=== PATIENT | female | born 1945 | race Caucasian/White ===

== ENCOUNTER 2016-06-09 10:30 | Outpatient (CLI) | payer MEDICARE | END 2016-06-09 10:31 | disposition home or self-care (01) | DX: N63 Unspecified lump in breast (principal); Z85.3 Personal history of malignant neoplasm of breast; Z90.11 Acquired absence of right breast and nipple ==

== ENCOUNTER 2016-06-16 14:31 | Outpatient (CLI) | payer MEDICARE | END 2016-06-16 14:32 | disposition home or self-care (01) | DX: I42.6 Alcoholic cardiomyopathy (principal); Z79.01 Long term (current) use of anticoagulants ==

== ENCOUNTER 2016-06-22 09:26 | Outpatient (CLI) | payer MEDICARE ==
[2016-06-22] MEDS ORDERED: BUFFERED LIDOCAINE 10 ML SYRINGE IU ONE (12:48)
[2016-06-22] MEDS ORDERED: BUPIVACAINE 0.5%-EPI 1:200000 PF 30 ML VIAL SUBQ ONE (12:48)
== END 2016-06-22 09:27 | disposition home or self-care (01) ==
DX: C50.212 Malignant neoplasm of upper-inner quadrant of left female breast (principal); Z17.0 Estrogen receptor positive status [ER+]
CPT/HCPCS: 19083; G0206

== ENCOUNTER 2016-06-24 14:30 | Outpatient (CLI) | payer MEDICARE ==
[~2016-06-24 14:30] MED LIST: BUFFERED LIDOCAINE 10 ML SYRINGE IU ONE; BUPIVACAINE 0.5%-EPI 1:200000 PF 30 ML VIAL SUBQ ONE
== END 2016-06-24 14:31 | disposition home or self-care (01) ==
DX: I42.6 Alcoholic cardiomyopathy (principal); Z79.01 Long term (current) use of anticoagulants; E83.42 Hypomagnesemia

== ENCOUNTER 2016-07-13 10:50 | Outpatient (CLI) | payer MEDICARE | END 2016-07-13 10:51 | disposition home or self-care (01) | DX: I42.6 Alcoholic cardiomyopathy (principal); Z79.01 Long term (current) use of anticoagulants; C50.412 Malignant neoplasm of upper-outer quadrant of left female breast ==

== ENCOUNTER 2016-08-15 14:13 | Outpatient (CLI) | payer MEDICARE | END 2016-08-15 14:14 | disposition home or self-care (01) | DX: Z79.01 Long term (current) use of anticoagulants (principal); I42.6 Alcoholic cardiomyopathy ==

== ENCOUNTER 2016-08-29 10:22 | Outpatient (CLI) | payer MEDICARE | END 2016-08-29 10:23 | disposition home or self-care (01) | DX: I42.6 Alcoholic cardiomyopathy (principal); Z79.01 Long term (current) use of anticoagulants ==

== ENCOUNTER 2016-08-31 14:56 | Outpatient (CLI) | payer MEDICARE | END 2016-08-31 14:57 | disposition home or self-care (01) | DX: G47.33 Obstructive sleep apnea (adult) (pediatric) (principal); I89.0 Lymphedema, not elsewhere classified | CPT/HCPCS: 99214; G0463 ==

== ENCOUNTER 2016-09-26 09:49 | Outpatient (CLI) | payer MEDICARE | END 2016-09-26 09:50 | disposition home or self-care (01) | DX: I42.6 Alcoholic cardiomyopathy (principal); Z79.01 Long term (current) use of anticoagulants ==

== ENCOUNTER 2016-10-17 13:26 | Outpatient (CLI) | payer MEDICARE | END 2016-10-17 13:27 | disposition home or self-care (01) | LOC: LAB.S 13:26 | PROVIDERS: ATTEND Internal Medicine | DX: I42.6 Alcoholic cardiomyopathy (principal); Z79.01 Long term (current) use of anticoagulants | CPT/HCPCS: 85610 ==

== ENCOUNTER 2016-10-24 10:48 | Outpatient (CLI) | payer MEDICARE ==
--- NOTE | 2016-10-24 18:38 | XRAY Report ---
LUMBAR SPINE, THREE VIEWS: 10/24/2016 COMPARISON: 11/25/2013 FINDINGS: T12 shows a left rudimentary rib. There are five non-rib bearing lumbar-type vertebrae noted once again. Extremely prominent spurring is noted with bridging osteophytes on the AP projection at the L1-2 level. Prominent osteophytes are also noted at the L2-3 level, especially on AP projection. Significant disk space narrowing is noted at L1-2. Moderate degree of disk space narrowing is noted at L2-3. Grade 1 spondylolisthesis is noted at L4-5. This spondylolisthesis amounts to 1 cm. Spondylolisthesis most likely is a result of significant osteoarthritis at the facet joints at L4-5. No significant disk space narrowing is noted at this level. Mild spondylolisthesis is noted at L5-S1. This spondylolisthesis measures 5 mm. It most likely is a result of osteoarthritis of the facet joints. Mild old compression fracture of L5 is seen with 20% loss of height of the vertebra. This compression fracture is unchanged as compared to preceding exam. Mild posterior disk space narrowing is noted at L5-S1. As compared to preceding exam, only interval change is a mild spondylolisthesis at L5-S1 and complete healing of the previously noted compression fracture. No further loss in height of the L5 vertebral body is seen as a result of the compression fracture. Vacuum phenomenon noted at L2-3, L3-4, and L4-5 on preceding examination within these disk spaces are not as evident on today's exam. Mild old compression fracture is noted at T11 and is unchanged Vascular calcification is once again noted in the abdominal aorta and its iliac branches. IMPRESSION: 1. COMPLETE HEALING OF PREVIOUSLY NOTED L5 COMPRESSION FRACTURE. 20% LOSS IN HEIGHT OF THE L5 VERTEBRAL BODY IS ONCE AGAIN NOTED A RESULT OF THIS COMPRESSION FRACTURE WITH NO FURTHER LOSS IN HEIGHT SEEN. 2. INTERVAL APPEARANCE OF A MILD GRADE 1 SPONDYLOLISTHESIS AT L5-S1 MOST LIKELY A RESULT OF SIGNIFICANT OSTEOARTHRITIS OF THE FACET JOINTS. 3. GRADE 1 SPONDYLOLISTHESIS IS ONCE AGAIN SEEN AT L4-5 A RESULT OF OSTEOARTHRITIS OF THE FACET JOINTS AND IS UNCHANGED. 4. OSTEOARTHRITIS AND DEGENERATIVE DISK DISEASE IS NOTED IN THE LUMBAR SPINE ESPECIALLY AT THE L1-2 AND L2-3 LEVELS. 5. MILD OLD COMPRESSION FRACTURE IS ONCE AGAIN SEEN AT T11 AND IS UNCHANGED. 6. CONSTIPATION. JOB #: [id number] EXT JOB #: [id number] BLANCA
== END 2016-10-24 10:49 | disposition home or self-care (01) ==
LOC: DI.S 10:48
PROVIDERS: ATTEND Internal Medicine
DX: M51.36 Other intervertebral disc degeneration, lumbar region (principal); M47.896 Other spondylosis, lumbar region; M43.16 Spondylolisthesis, lumbar region; K59.00 Constipation, unspecified
CPT/HCPCS: 72100

== ENCOUNTER 2016-10-28 14:30 | Outpatient (CLI) | payer MEDICARE ==
--- NOTE | 2016-10-30 02:32 | XRAY Report ---
EXAM: LEFT FOOT RADIOGRAPHY EXAM DATE: 10/28/2016 02:53 PM. CLINICAL HISTORY: PAIN IN LEFT FOOT. COMPARISON: None. TECHNIQUE: 3 views. FINDINGS: Bones: Old healed fracture deformity at the left fifth metatarsal diaphysis. Absent distal aspect of the fifth proximal phalanx. No evidence for acute fracture. No acute bone findings are seen. Joints: No dislocation. Mild to moderate tibiotalar, intertarsal and tarsometatarsal degenerative lluvia nt disease. Small posterior calcaneal bone spur. Soft Tissues: Diffuse distal lower leg and foot soft tissue fullness. Some arterial calcifications no hayden at the dorsal foot soft tissue. IMPRESSION: 1. No acute bone findings are seen. See above. [facility] Referring Provider Line: [phone] SITE ID: [id number]
== END 2016-10-28 14:31 | disposition home or self-care (01) ==
LOC: DI.S 14:30
PROVIDERS: ATTEND Internal Medicine
DX: M19.072 Primary osteoarthritis, left ankle and foot (principal); M77.32 Calcaneal spur, left foot; I70.208 Unspecified atherosclerosis of native arteries of extremities, other extremity

== ENCOUNTER 2016-11-07 11:40 | Outpatient (CLI) | payer MEDICARE | END 2016-11-07 23:59 | disposition home or self-care (01) | LOC: LAB.S 11:40 | PROVIDERS: ATTEND Internal Medicine | DX: I42.6 Alcoholic cardiomyopathy (principal); Z79.01 Long term (current) use of anticoagulants | CPT/HCPCS: 85610 ==

== ENCOUNTER 2016-11-21 09:07 | Outpatient (CLI) | payer MEDICARE | END 2016-11-21 09:08 | disposition home or self-care (01) | LOC: LAB.S 09:07 | PROVIDERS: ATTEND Internal Medicine | DX: I42.6 Alcoholic cardiomyopathy (principal); Z79.01 Long term (current) use of anticoagulants | CPT/HCPCS: 85610 ==

== ENCOUNTER 2016-11-28 21:52 | Outpatient (CLI) | payer MEDICARE | END 2016-11-28 21:53 | disposition critical access hospital (66) | LOC: EMS 21:52 | PROVIDERS: ATTEND Surgery | DX: R53.1 Weakness (principal); W18.39XA Other fall on same level, initial encounter; Y92.009 Unspecified place in unspecified non-institutional (private) residence as the place of occurrence of the external cause | CPT/HCPCS: A0425; A0429 ==

== ENCOUNTER 2016-11-28 22:54 | Emergency (ER) | payer MEDICARE ==
--- NOTE | 2016-11-29 00:01 | ED Physician Documentation ---
PD HPI UPPER EXT INJURY - Stated complaint Stated Complaint: GLF, RIGHT SHOULDER PAIN - Chief complaint Chief Complaint: General - History obtained from History obtained from: Patient - History of Present Illness Location: Right, Shoulder, Other (right hip) Type of injury: Fall Where injury occurred: Home Timing - onset: Enter time (19:30) Timing - details: Abrupt onset Improved by: Rest Worsened by: Moving, Palpating Associated symptoms: No: Weakness, Numbness, Swelling Similar symptoms before: Has not had sx before Recently seen: Not recently seen - Additonal information Additional information: tripped and fell at home tonight 7:30 PM, c/o RUE and RLE pain, predominantly right hip and right shoulder Review of Systems Musculoskeletal: reports: Joint pain, Pain with weight bearing. denies: Neck pain, Back pain Neurologic: denies: Focal weakness, Numbness, Headache, Head injury, LOC PD PAST MEDICAL HISTORY - Past Medical History Past Medical History: Yes Cardiovascular: Congestive heart failure, Hypertension, High cholesterol, Murmur Respiratory: Asthma, COPD, Pneumonia, Shortness of breath, Sleep apnea, CPAP use Neuro: None Endocrine/Autoimmune: None GI: GERD, Ulcers, Chronic diarrhea, Chronic constipation SPACE CONTROL AGENT: None, Breast cancer : None HEENT: Other Psych: Depression, Claustrophobia Musculoskeletal: Osteoarthritis, Rheumatoid arthritis, Chronic back pain Derm: Other drug resistant infections - Past Surgical History Past Surgical History: Yes General: Colonoscopy Ortho: Other /SPACE CONTROL AGENT: Hysterectomy, Mastectomy HEENT: Cataracts, Tonsil/Adenoidectomy - Present Medications Home Medications: Ambulatory Orders Medication Instructions Recorded Confirmed Venlafaxine [Effexor] 75 mg PO TID 07/10/13 11/02/16 Acetaminophen 500 mg PO TID 12/28/15 11/02/16 Fluticasone [Flonase] 2 spray MARILUZ DAILY 12/28/15 11/02/16 Furosemide [Lasix] 80 mg PO DAILY 12/28/15 11/02/16 Gabapentin 300 mg PO TID 12/28/15 11/02/16 Omeprazole [PriLOSEC] 20 mg PO DAILY PRN 12/28/15 11/02/16 diphenhydrAMINE [Benadryl] 25 mg PO HS PRN 12/28/15 11/02/16 Albuterol Sulf [Ventolin Hfa 1 - 2 puffs INH Q4HR PRN 07/27/16 11/02/16 Inhaler] Calcium Carbonate/Vitamin D3 1 each PO BID 07/27/16 11/02/16 [Caltrate 600 Plus D3 Tablet] Fluticasone/Salmeterol 100/50 1 each IH BID 07/27/16 11/02/16 [Advair 100 Mcg/50 Mcg] Hydroxychloroquine [Plaquenil] 200 mg PO DAILY 07/27/16 11/02/16 Losartan [Cozaar] 50 mg PO DAILY 07/27/16 11/02/16 Metoprolol Succinate 0.5 tab PO DAILY 07/27/16 11/02/16 Nortriptyline [Pamelor] 3 cap PO BID 07/27/16 11/02/16 Potassium Chloride 10 meq PO BID 07/27/16 11/02/16 Simvastatin 20 mg PO DAILY PM 07/27/16 11/02/16 Spironolactone 25 mg PO DAILY 07/27/16 11/02/16 Terbinafine HCl [Lamisil At] 1 applic TOP BID 07/27/16 11/02/16 Warfarin [Coumadin] 5 mg PO 1400 07/27/16 11/02/16 Anastrozole 1 mg PO DAILY PM 11/02/16 11/02/16 - Allergies Allergies/Adverse Reactions: Allergies Allergy/AdvReac Type Severity Reaction Status Date / Time penicillin G Allergy Intermediate Unknown Verified 11/28/16 23:02 Sulfa (Sulfonamide Allergy Intermediate Rash Verified 11/28/16 23:02 Antibiotics) dyazides Allergy Intermediate Unknown Uncoded 11/28/16 23:02 - Social History Does the pt smoke?: No Smoking Status: Never smoker Does the pt drink ETOH?: No Does the pt have substance abuse?: No - Immunizations Immunizations are current?: Yes - POLST Patient has POLST: No PD ED PE NORMAL - Vitals Vital signs reviewed: Yes - General General: Alert and oriented X 3, No acute distress, Well developed/nourished - Derm Derm: Normal color, Warm and dry PD ED PE EXPANDED - Extremities Extremities: Tenderness, Limited ROM, Right shoulder, Right hip, Pedal edema bilateral Results - Vitals Vitals: Vital Signs - 24 hr 11/28/16 11/28/16 11/29/16 22:57 23:33 02:05 Temperature 36.6 C Heart Rate 61 58 L 57 L Respiratory 14 19 18 Rate Blood Pressure 126/66 122/59 L O2 Saturation 99 99 96 11/29/16 11/29/16 11/29/16 02:07 02:24 03:23 Temperature Heart Rate 55 L 57 L Respiratory 17 18 Rate Blood Pressure 131/57 H 139/61 H 124/57 L O2 Saturation 97 100 Oxygen O2 Source [With Activity] Room air O2 Source [Without Activity] Room air O2 Source Room air - Rads (name of study) right hip xrays Radiology: Prelim report reviewed, See rad report right shoulder xrays Radiology: Prelim report reviewed, See rad report PD MEDICAL DECISION MAKING - ED course Complexity details: reviewed results, re-evaluated patient, considered differential, d/w patient, d/w family Departure - Departure Disposition: 01 Home, Self Care Clinical Impression: Fall, Shoulder contusion, Contusion of hip, right Condition: Good Instructions: ED Mechanical Fall, ED Contusion Hip, ED Contusion Shoulder Follow-Up: Shay Heredia MD [Primary Care Provider] - Discharge Date/Time: 11/29/16 03:47
--- NOTE | 2016-11-29 01:56 | XRAY Preliminary Report ---
Exam: XR Hip w/Pelvis 2-3V RT IMPRESSION: 1. No acute abnormality seen in the pelvis or hip. [facility] SITE ID: [id number]
--- NOTE | 2016-11-29 01:59 | XRAY Report ---
EXAM: RIGHT HIP AND PELVIS RADIOGRAPHY EXAM DATE: 11/29/2016 01:39 AM. HISTORY: Fall, pain. History of breast cancer. COMPARISONS: None. TECHNIQUE: 1 view of the pelvis and 2 view of the hip. FINDINGS: Bones: No acute fracture seen. No focal area of bone destruction identified. Joints: The bilateral hip, pubis symphysis, and sacroiliac joints are relatively well preserved for a ge. Soft Tissues: Grossly unremarkable. IMPRESSION: 1. No acute abnormality seen in the pelvis or hip. [facility] Referring Provider Line: [phone] SITE ID: [id number]
--- NOTE | 2016-11-29 02:02 | XRAY Preliminary Report ---
Exam: XR Shoulder 3 View RT IMPRESSION: 1. Osteopenia and degenerative changes. 2. No acute fracture or dislocation seen. 3. Dystrophic ossification or calcification again seen about the shoulder joint. [facility] SITE ID: [id number]
--- NOTE | 2016-11-29 02:04 | XRAY Report ---
EXAM: RIGHT SHOULDER RADIOGRAPHY EXAM DATE: 11/29/2016 01:38 AM. CLINICAL HISTORY: Fall, pain. COMPARISON: 12/30/2014. TECHNIQUE: 3 views. FINDINGS: Bones: Osteopenia. No acute fracture seen. Joints: No dislocation. Degenerative joint disease in the glenohumeral joint and acromioclavicular micha int. Soft tissues: Dystrophic calcification or ossification is seen about the shoulder joint. Right pleura l thickening is noted. IMPRESSION: 1. Osteopenia and degenerative changes. 2. No acute fracture or dislocation seen. 3. Dystrophic ossification or calcification again seen about the shoulder joint. [facility] Referring Provider Line: [phone] SITE ID: [id number]
[2016-11-29] MEDS ORDERED: HYDROcod/ACET 5/325 Prepack 6 PO STA (03:23)
[2016-11-29 03:24] VITALS: BP 124/57
[2016-11-29] MEDS ORDERED: HYDROcod/ACET 5/325 Prepack 6 PO ONE (03:35)
== END 2016-11-29 03:47 | disposition home or self-care (01) ==
LOC: EDUNIT# → SUPCPDRO 22:54 → ED 22:54
DX: S40.011A Contusion of right shoulder, initial encounter (principal); S70.01XA Contusion of right hip, initial encounter; W18.30XA Fall on same level, unspecified, initial encounter; Y92.009 Unspecified place in unspecified non-institutional (private) residence as the place of occurrence of the external cause; Z79.01 Long term (current) use of anticoagulants; M85.811 Other specified disorders of bone density and structure, right shoulder; M06.9 Rheumatoid arthritis, unspecified; M19.90 Unspecified osteoarthritis, unspecified site; I11.0 Hypertensive heart disease with heart failure; I50.9 Heart failure, unspecified; Z85.3 Personal history of malignant neoplasm of breast; Z90.10 Acquired absence of unspecified breast and nipple
CPT/HCPCS: 99283; 99284

== ENCOUNTER 2017-01-02 08:00 | Outpatient (CLI) | payer MEDICARE | END 2017-01-02 08:01 | disposition home or self-care (01) | LOC: LAB.S 08:00 | PROVIDERS: ATTEND Internal Medicine | DX: I42.6 Alcoholic cardiomyopathy (principal); Z79.01 Long term (current) use of anticoagulants | CPT/HCPCS: 85610 ==

== ENCOUNTER 2017-02-14 15:06 | Outpatient (CLI) | payer MEDICARE | END 2017-02-14 15:07 | disposition home or self-care (01) | LOC: LAB.F 15:06 | PROVIDERS: ATTEND Internal Medicine | DX: I42.6 Alcoholic cardiomyopathy (principal); Z79.01 Long term (current) use of anticoagulants | CPT/HCPCS: 85610 ==

== ENCOUNTER 2017-02-23 10:14 | Outpatient (CLI) | payer MEDICARE | END 2017-02-23 10:15 | disposition EMS.NT | LOC: EMS 10:14 | PROVIDERS: ATTEND Surgery | DX: Z03.89 Encounter for observation for other suspected diseases and conditions ruled out (principal); W07.XXXA Fall from chair, initial encounter; Y92.009 Unspecified place in unspecified non-institutional (private) residence as the place of occurrence of the external cause ==

== ENCOUNTER 2017-02-23 15:03 | Outpatient (CLI) | payer MEDICARE | END 2017-02-23 15:04 | disposition EMS.NT | LOC: EMS 15:03 | PROVIDERS: ATTEND Surgery | DX: Z03.89 Encounter for observation for other suspected diseases and conditions ruled out (principal); W01.198A Fall on same level from slipping, tripping and stumbling with subsequent striking against other object, initial encounter; Y92.002 Bathroom of unspecified non-institutional (private) residence as the place of occurrence of the external cause ==

== ENCOUNTER 2017-02-27 12:09 | Outpatient (CLI) | payer MEDICARE ==
[2017-02-28 11:46] LABS: BASOPHILS % (AUTO) 0.5 %; EOSINOPHILS # (AUTO) 0.1 10^3/uL (0.0-0.7); EOSINOPHILS % (AUTO) 1.2 %; HCT - HEMATOCRIT 37.8 % (37.0-47.0); LYMPHOCYTES # (AUTO) 1.1 10^3/uL (1.5-3.5); MEAN CORPUSCULAR HEMOGLOBIN 29.3 pg (27.0-31.0); MEAN CORPUSCULAR HGB CONC 31.8 g/dL (32.0-36.0); MEAN CORPUSCULAR VOLUME 92.1 fL (81.0-99.0); MEAN PLATELET VOLUME 8.9 fL (7.9-10.8); MONOCYTES # (AUTO) 0.7 10^3/uL (0.0-1.0); MONOCYTES % (AUTO) 11.5 %; NEUTROPHILS # (AUTO) 4.4 10^3/uL (1.5-6.6); NEUTROPHILS % (AUTO) 69.8 %; NUCLEATED RED BLOOD CELLS AUTO 0.1 /100WBC; RED CELL DISTRIBUTION WIDTH 19.3 % (12.0-15.0); WHITE BLOOD COUNT 6.3 x10^3/uL (4.8-10.8)
[2017-02-28 12:05] LABS: ALBUMIN/GLOBULIN RATIO 1.3 (1.0-2.2); BILIRUBIN,TOTAL 0.5 mg/dL (0.2-1.0); BUN - BLOOD UREA NITROGEN 15 mg/dL (6-20); CALCIUM 8.8 mg/dL (8.5-10.3); CARBON DIOXIDE - CO2 29 mmol/L (21-32); CHLORIDE 102 mmol/L (101-111); CHOL/HDL RATIO 2.1 (<4.4); CHOLESTEROL 92 mg/dL; CREATININE 0.8 mg/dL (0.4-1.0); GFR - MDRD 71 (>89); GLUCOSE 79 mg/dL (70-100); HDL CHOLESTEROL 43 mg/dL; LDL/HDL RATIO 0.8 (<4.4); SODIUM 140 mmol/L (135-145); TOTAL PROTEIN 6.2 g/dL (6.7-8.2); TRIGLYCERIDES 68 mg/dL; VLDL CHOLESTEROL 14 mg/dL
[2017-02-28 12:10] LABS: HEMOGLOBIN A1C 0.5 g/dL; PLATELET ESTIMATE, MANUAL NORMAL (130-450,000) (NORMAL); PLATELET MORPHOLOGY NORMAL APPEARANCE (NORMAL)
== END 2017-02-27 12:10 | disposition home or self-care (01) ==
LOC: LAB.F 12:09
PROVIDERS: ATTEND Internal Medicine
DX: R60.9 Edema, unspecified (principal); E78.00 Pure hypercholesterolemia, unspecified; R73.9 Hyperglycemia, unspecified; R06.00 Dyspnea, unspecified
CPT/HCPCS: 36415; 80053; 80061; 83036; 83880; 84443; 85025; 85610

== ENCOUNTER 2017-03-01 13:41 | Emergency (ER) | payer MEDICARE ==
[2017-03-01] MEDS ORDERED: cefTRIAXone 1 GM VIAL IM STA (14:41)
--- NOTE | 2017-03-01 14:44 | ED Physician Documentation ---
PD HPI SKIN - Stated complaint Stated Complaint: BILAT LEGS WOUND - Chief complaint Chief Complaint: Wound - History obtained from History obtained from: Patient - History of Present Illness Timing - onset: Other (72-year-old woman with peripheral vascular disease on warfarin presents with multiple complaints. Most pressing to her is that she has had nonhealing wounds on both lower extremities for the last 3 months that have been weeping. She recently finished a course of Keflex without improvement. There is no associated fever. She also has Yudelka in the groin folds that has been resistant to creams. She has had 2 falls with head injuries over the last week and a half with mild headaches. No loss of consciousness.) Review of Systems Ten Systems: 10 systems reviewed and negative Constitutional: reports: Reviewed and negative Nose: denies: Rhinorrhea / runny nose, Congestion Cardiac: denies: Chest pain / pressure, Palpitations Respiratory: denies: Dyspnea, Cough PD PAST MEDICAL HISTORY - Past Medical History Past Medical History: Yes Cardiovascular: Congestive heart failure, Hypertension, High cholesterol, Murmur Respiratory: Asthma, COPD, Pneumonia, Shortness of breath, Sleep apnea, CPAP use Neuro: None Endocrine/Autoimmune: None GI: GERD, Ulcers, Chronic diarrhea, Chronic constipation PLASTICS FABRICATOR: None, Breast cancer : None HEENT: Other Psych: Depression, Claustrophobia Musculoskeletal: Osteoarthritis, Rheumatoid arthritis, Chronic back pain Derm: Other drug resistant infections - Past Surgical History Past Surgical History: Yes General: Colonoscopy Ortho: Other /PLASTICS FABRICATOR: Hysterectomy, Mastectomy HEENT: Cataracts, Tonsil/Adenoidectomy - Present Medications Home Medications: Ambulatory Orders Medication Instructions Recorded Confirmed Venlafaxine [Effexor] 75 mg PO TID 07/10/13 12/21/16 Acetaminophen 500 mg PO TID 12/28/15 12/21/16 Fluticasone [Flonase] 2 spray MARILUZ DAILY 12/28/15 12/21/16 Furosemide [Lasix] 80 mg PO DAILY 12/28/15 12/21/16 Gabapentin 300 mg PO TID 12/28/15 12/21/16 Omeprazole [PriLOSEC] 20 mg PO DAILY PRN 12/28/15 12/21/16 diphenhydrAMINE [Benadryl] 25 mg PO HS PRN 12/28/15 12/21/16 Albuterol Sulf [Ventolin Hfa 1 - 2 puffs INH Q4HR PRN 07/27/16 12/21/16 Inhaler] Calcium Carbonate/Vitamin D3 1 each PO BID 07/27/16 12/21/16 [Caltrate 600 Plus D3 Tablet] Fluticasone/Salmeterol 100/50 1 each IH BID 07/27/16 12/21/16 [Advair 100 Mcg/50 Mcg] Hydroxychloroquine [Plaquenil] 200 mg PO DAILY 07/27/16 12/21/16 Losartan [Cozaar] 50 mg PO DAILY 07/27/16 12/21/16 Metoprolol Succinate 0.5 tab PO DAILY 07/27/16 12/21/16 Nortriptyline [Pamelor] 3 cap PO BID 07/27/16 12/21/16 Potassium Chloride 10 meq PO BID 07/27/16 12/21/16 Simvastatin 20 mg PO DAILY PM 07/27/16 12/21/16 Spironolactone 25 mg PO DAILY 07/27/16 12/21/16 Terbinafine HCl [Lamisil At] 1 applic TOP BID 07/27/16 12/21/16 Warfarin [Coumadin] 5 mg PO 1400 07/27/16 12/21/16 Anastrozole 1 mg PO DAILY PM 11/02/16 12/21/16 Clindamycin [Cleocin] 300 mg PO Q6H 10 Days capsule 03/01/17 Nystatin [Nystop] 1 applic TOP TID 10 Days powder 03/01/17 - Allergies Allergies/Adverse Reactions: Allergies Allergy/AdvReac Type Severity Reaction Status Date / Time penicillin G Allergy Intermediate Unknown Verified 03/01/17 13:50 Sulfa (Sulfonamide Allergy Intermediate Rash Verified 03/01/17 13:50 Antibiotics) dyazides Allergy Intermediate Unknown Uncoded 11/28/16 23:02 - Social History Does the pt smoke?: No Smoking Status: Never smoker Does the pt drink ETOH?: No Does the pt have substance abuse?: No - Immunizations Immunizations are current?: Yes - POLST Patient has POLST: Yes PD ED PE NORMAL - Vitals Vital signs reviewed: Yes - General General: Alert and oriented X 3, No acute distress - HEENT HEENT: PERRL, EOMI, Other (Bruising over both sides of the forehead) - Abdomen Abdomen: Normal bowel sounds, Soft - Back Back: No CVA TTP, No spinal TTP - Derm Derm: Other (Peripheral venous stasis changes of both legs with weeping cellulitis, especially the left leg with 1 2 x 1 cm shallow ulcer which is cultured during exam, it is on the lateral calf on the left. Intertriginous yudelka in the groin.) - Neuro Neuro: Alert and oriented X 3, Normal speech - Psych Psych: Normal mood, Normal affect Results - Vitals Vitals: Vital Signs - 24 hr 03/01/17 03/01/17 13:46 16:42 Temperature 36.2 C L 36.5 C Heart Rate 80 83 Respiratory 22 12 Rate Blood Pressure 108/65 139/60 H O2 Saturation 92 92 Oxygen O2 Source [] Room air O2 Source [] Room air O2 Source Room air - Labs Labs: Laboratory Tests 03/01/17 15:01 Whole Blood INR 1.8 H - Rads (name of study) CT Head Radiology: EMP read contemporaneously (Age-related atrophy without acute abnormality) PD MEDICAL DECISION MAKING - ED course ED course: This is a 72-year-old woman who presents with multiple complaints including a yeast infection in her groin, bilateral lower extremity cellulitis without evidence of sepsis, and multiple head injuries, although not today in the setting of anticoagulation. Her INR is 1.8 and she was advised to take an extra half dose tonight. Her head CT was negative. The wound on her left lower extremity was cultured and she is given Rocephin in the emergency department and a prescription for clindamycin noting her allergies as well as nystatin powder. They are having some troubles caring for her at home, not acutely but chronically, the geriatric social worker did see her. She was counseled that head injuries in the setting of anticoagulation mandate an emergency department visit. Departure - Departure Disposition: 01 Home, Self Care Clinical Impression: Peripheral edema, Venous stasis, Cellulitis of leg, left, Yduelka infection of flexural skin, Subtherapeutic international normalized ratio (INR) Head injury Qualifiers: Encounter type: initial encounter Qualified Code(s): S09.90XA - Unspecified injury of head, initial encounter Condition: Good Record reviewed to determine appropriate education?: Yes Instructions: Cellulitis Dc Prescriptions: Clindamycin [Cleocin] 300 mg PO Q6H 10 Days capsule Nystatin [Nystop] 1 applic TOP TID 10 Days powder Comments: Take an extra half dose of your Coumadin tonight. Oftentimes your INR will go high while on antibiotics, have it checked again on Monday and again on Monday, and late next week. Call your doctor to arrange a follow-up appointment, make the next available appointment. In the interim, return anytime if worse or if new symptoms develop. We are performing a wound culture, the results should be done in 48-72 hours. If antibiotic change is necessary we will call you. Return if worse in the meantime, especially if he develop increased pain, fevers, cannot keep down the medication. Otherwise follow-up with your physician in approximately 2-3 days. Your blood pressure was elevated today on check into the emergency department. This does not mean that you have hypertension, it is a common phenomenon to come to the emergency department and have elevated blood pressure. I recommend that she see your primary care physician within the week to have it rechecked when you are feeling better. Discharge Date/Time: 03/01/17 16:44
[2017-03-01] MEDS ORDERED: LIDOCAINE 1% 2 ML VIAL ONE (14:47)
[2017-03-01] MEDS ORDERED: cefTRIAXone 1 GM VIAL ONE (14:48)
--- NOTE | 2017-03-01 15:47 | CT Preliminary Report ---
Exam: CT Head W/O IMPRESSION: Generalized age-related cortical atrophic changes without evidence of acute intracranial abnormality. [facility] SITE ID: [id number]
--- NOTE | 2017-03-01 15:50 | CT Report ---
EXAM: CT HEAD EXAM DATE: 03/01/2017 03:25 PM. CLINICAL HISTORY: Head inj, on warfarin. COMPARISON: None. TECHNIQUE: Multiaxial CT images were obtained from the foramen magnum to the vertex. IV contrast: Non e. Reformats: Coronal. In accordance with CT protocol optimization, one or more of the following dose reduction techniques w ere utilized for this exam: automated exposure control, adjustment of mA and/or KV based on patient s ize, or use of iterative reconstructive technique. FINDINGS: Parenchyma: No intraparenchymal hemorrhage. No evidence of mass, midline shift, or CT findings of acu te infarction. Desouza-white differentiation is distinct. Extraaxial Spaces: Normal for age. No subdural or epidural collections. Ventricles: The ventricles and cortical sulci are enlarged, consistent with age-related tissue loss. Sinuses: Imaged paranasal sinuses, orbits, and mastoids show no significant abnormality. Bones: Unremarkable. Other: Diffuse chronic microangiopathic white matter changes. IMPRESSION: Generalized age-related cortical atrophic changes without evidence of acute intracranial abnormality. [facility] Referring Provider Line: [phone] SITE ID: [id number]
[2017-03-01 16:43] VITALS: BP 139/60
== END 2017-03-01 16:44 | disposition home or self-care (01) ==
LOC: ED 13:41
DX: I87.8 Other specified disorders of veins (principal); L03.115 Cellulitis of right lower limb; L03.116 Cellulitis of left lower limb; R60.0 Localized edema; B37.49 Other urogenital candidiasis; D68.8 Other specified coagulation defects; S09.90XA Unspecified injury of head, initial encounter; W19.XXXA Unspecified fall, initial encounter; I11.0 Hypertensive heart disease with heart failure; I50.9 Heart failure, unspecified; I73.9 Peripheral vascular disease, unspecified; E78.00 Pure hypercholesterolemia, unspecified; Z79.01 Long term (current) use of anticoagulants; J45.909 Unspecified asthma, uncomplicated; J44.9 Chronic obstructive pulmonary disease, unspecified; G47.30 Sleep apnea, unspecified; K21.9 Gastro-esophageal reflux disease without esophagitis; Z87.11 Personal history of peptic ulcer disease; Z85.3 Personal history of malignant neoplasm of breast; M19.90 Unspecified osteoarthritis, unspecified site; M06.9 Rheumatoid arthritis, unspecified
CPT/HCPCS: 70450; 85610; 87070; 87077; 87205; 96372; 99283; 99284

== ENCOUNTER 2017-03-03 11:22 | Outpatient (CLI) | payer MEDICARE | END 2017-03-03 11:23 | disposition home or self-care (01) | LOC: LAB.F 11:22 | PROVIDERS: ATTEND Internal Medicine | DX: R06.09 Other forms of dyspnea (principal) | CPT/HCPCS: 36415; 83880 ==

== ENCOUNTER 2017-03-09 11:17 | Outpatient (CLI) | payer MEDICARE | END 2017-03-09 11:18 | disposition home or self-care (01) | LOC: LAB.F 11:17 | PROVIDERS: ATTEND Internal Medicine | DX: I42.6 Alcoholic cardiomyopathy (principal); Z79.01 Long term (current) use of anticoagulants | CPT/HCPCS: 85610 ==

== ENCOUNTER 2017-03-21 08:00 | Outpatient (CLI) | payer MEDICARE ==
[2017-03-21 18:21] LABS: BILIRUBIN,URINE NEGATIVE (NEGATIVE)
[2017-03-21 18:31] LABS: UA w/ MICROSCOPIC CHARGE YES
[2017-03-21 18:37] LABS: UR CULTURE IF IND INDICATED; WBC,URINE >25 /HPF (0-5)
== END 2017-03-21 08:01 | disposition home or self-care (01) ==
LOC: LAB.R 08:00
PROVIDERS: ATTEND Internal Medicine
DX: I50.9 Heart failure, unspecified (principal); N39.0 Urinary tract infection, site not specified
CPT/HCPCS: 80048; 81001; 81003; 87086

== ENCOUNTER 2017-03-23 12:14 | Outpatient (CLI) | payer MEDICARE ==
[2017-03-23 18:02] LABS: CALCIUM 8.5 mg/dL (8.5-10.3); CREATININE 0.8 mg/dL (0.4-1.0); POTASSIUM 3.5 mmol/L (3.5-5.0)
== END 2017-03-23 12:15 | disposition home or self-care (01) ==
LOC: LAB.F 12:14
PROVIDERS: ATTEND Internal Medicine
DX: I50.9 Heart failure, unspecified (principal)
CPT/HCPCS: 80048; 83880

== ENCOUNTER 2017-04-18 21:34 | Outpatient (CLI) | payer MEDICARE | END 2017-04-18 21:35 | disposition EMS.NT | LOC: EMS 21:34 | PROVIDERS: ATTEND Surgery | DX: Z03.89 Encounter for observation for other suspected diseases and conditions ruled out (principal); W18.39XA Other fall on same level, initial encounter; Y92.009 Unspecified place in unspecified non-institutional (private) residence as the place of occurrence of the external cause ==

== ENCOUNTER 2017-04-20 15:00 | Outpatient (CLI) | payer MEDICARE ==
[2017-04-20 18:17] LABS: PT - PROTHROMBIN TIME 50.9 secs (9.9-12.6)
[2017-04-20 18:21] LABS: CREATININE 1.3 mg/dL (0.4-1.0); POTASSIUM 4.3 mmol/L (3.5-5.0)
[2017-04-20 18:22] LABS: CALCIUM 8.8 mg/dL (8.5-10.3)
[2017-04-20 18:37] LABS: INR 4.8 (0.8-1.2)
== END 2017-04-20 15:01 | disposition home or self-care (01) ==
LOC: LAB.R 15:00
PROVIDERS: ATTEND Family Medicine
DX: I50.9 Heart failure, unspecified (principal); Z79.01 Long term (current) use of anticoagulants
CPT/HCPCS: 80048; 85610

== ENCOUNTER 2017-04-21 14:00 | Outpatient (CLI) | payer MEDICARE | END 2017-04-21 14:01 | disposition critical access hospital (66) | LOC: EMS 14:00 | PROVIDERS: ATTEND Surgery | DX: T83.038A Leakage of other urinary catheter, initial encounter (principal) | CPT/HCPCS: A0425; A0429 ==

== ENCOUNTER 2017-04-21 14:26 | Emergency (ER) | payer MEDICARE ==
[2017-04-21 15:23] LABS: BILIRUBIN,URINE NEGATIVE (NEGATIVE)
[2017-04-21 15:24] LABS: BASOPHILS % (AUTO) 0.5 %; EOSINOPHILS % (AUTO) 0.6 %; HCT - HEMATOCRIT 36.9 % (37.0-47.0); HGB - HEMOGLOBIN 11.6 g/dL (12.0-16.0); LYMPHOCYTES # (AUTO) 0.8 10^3/uL (1.5-3.5); LYMPHOCYTES % (AUTO) 10.1 %; MEAN CORPUSCULAR HEMOGLOBIN 28.4 pg (27.0-31.0); MEAN CORPUSCULAR HGB CONC 31.6 g/dL (32.0-36.0); MEAN CORPUSCULAR VOLUME 89.9 fL (81.0-99.0); MEAN PLATELET VOLUME 7.9 fL (7.9-10.8); MONOCYTES # (AUTO) 0.7 10^3/uL (0.0-1.0); NEUTROPHILS # (AUTO) 6.4 10^3/uL (1.5-6.6); NEUTROPHILS % (AUTO) 79.8 %; NUCLEATED RED BLOOD CELLS AUTO 0.1 /100WBC; RED CELL DISTRIBUTION WIDTH 19.1 % (12.0-15.0); UA w/ MICROSCOPIC CHARGE YES
--- NOTE | 2017-04-21 15:24 | ED Physician Documentation ---
History of Present Illness - Stated complaint Stated Complaint: BLEEDING - Chief complaint Chief Complaint: General - History obtained from History obtained from: Patient, EMS - History of Present Illness Timing: Today Pain level max: 0 Pain level now: 0 Improved by: nothing Worsened by: nothing - Additonal information Additional information: Patient is a 72-year-old female with a chronic indwelling Adams catheter who was sent over from her primary care office today for bleeding, unclear from where, but they think near the Adams catheter. The catheter placed a week ago when her INR was over 5. States her INR was down to four-point something today. She had also been taken meloxicam. No fevers. No vomiting. No abdominal pain. Her primary care provider stated she was shaking in the office today but no fever. Review of Systems Ten Systems: 10 systems reviewed and negative Constitutional: denies: Fever, Chills Ears: denies: Ear pain Nose: denies: Rhinorrhea / runny nose, Congestion Throat: denies: Sore throat Cardiac: denies: Chest pain / pressure Respiratory: denies: Cough GI: denies: Abdominal Pain, Nausea, Vomiting, Diarrhea Skin: denies: Rash Musculoskeletal: denies: Neck pain, Back pain Neurologic: denies: Focal weakness, Numbness, Headache PD PAST MEDICAL HISTORY - Past Medical History Cardiovascular: Congestive heart failure, Hypertension, High cholesterol, Murmur Respiratory: Asthma, COPD, Pneumonia, Shortness of breath, Sleep apnea, CPAP use Neuro: None Endocrine/Autoimmune: None GI: GERD, Ulcers, Chronic diarrhea, Chronic constipation 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, Breast cancer : None HEENT: Other Psych: Depression, Claustrophobia Musculoskeletal: Osteoarthritis, Rheumatoid arthritis, Chronic back pain Derm: Other drug resistant infections - Past Surgical History Past Surgical History: Yes General: Colonoscopy Ortho: Other /TRAILHEAD CONSTRUCTION WORKER: Hysterectomy, Mastectomy HEENT: Cataracts, Tonsil/Adenoidectomy - Present Medications Home Medications: Ambulatory Orders Medication Instructions Recorded Confirmed Venlafaxine [Effexor] 75 mg PO TID 07/10/13 04/19/17 Acetaminophen 500 mg PO TID 12/28/15 04/19/17 Fluticasone [Flonase] 2 spray MARILUZ DAILY 12/28/15 04/19/17 Furosemide [Lasix] 80 mg PO DAILY 12/28/15 04/19/17 Gabapentin 300 mg PO TID 12/28/15 04/19/17 Omeprazole [PriLOSEC] 20 mg PO DAILY PRN 12/28/15 04/19/17 diphenhydrAMINE [Benadryl] 25 mg PO HS PRN 12/28/15 04/19/17 Albuterol Sulf [Ventolin Hfa 1 - 2 puffs INH Q4HR PRN 07/27/16 04/19/17 Inhaler] Calcium Carbonate/Vitamin D3 1 each PO BID 07/27/16 04/19/17 [Caltrate 600 Plus D3 Tablet] Fluticasone/Salmeterol 100/50 1 each IH BID 07/27/16 04/19/17 [Advair 100 Mcg/50 Mcg] Hydroxychloroquine [Plaquenil] 200 mg PO DAILY 07/27/16 04/19/17 Losartan [Cozaar] 50 mg PO DAILY 07/27/16 04/19/17 Metoprolol Succinate 0.5 tab PO DAILY 07/27/16 04/19/17 Nortriptyline [Pamelor] 3 cap PO BID 07/27/16 04/19/17 Potassium Chloride 10 meq PO BID 07/27/16 04/19/17 Simvastatin 20 mg PO DAILY PM 07/27/16 04/19/17 Spironolactone 25 mg PO DAILY 07/27/16 04/19/17 Terbinafine HCl [Lamisil At] 1 applic TOP BID 07/27/16 04/19/17 Warfarin [Coumadin] 5 mg PO 1400 07/27/16 04/19/17 Anastrozole 1 mg PO DAILY PM 11/02/16 04/19/17 Clindamycin [Cleocin] 300 mg PO Q6H 10 Days capsule 03/01/17 04/19/17 Nystatin [Nystop] 1 applic TOP TID 10 Days powder 03/01/17 04/19/17 Cefdinir 300 mg PO BID #20 capsule 04/21/17 - Allergies Allergies/Adverse Reactions: Allergies Allergy/AdvReac Type Severity Reaction Status Date / Time penicillin G Allergy Intermediate Unknown Verified 04/21/17 14:41 Sulfa (Sulfonamide Allergy Intermediate Rash Verified 04/21/17 14:41 Antibiotics) dyazides Allergy Intermediate Unknown Uncoded 04/21/17 14:41 - Social History Does the pt smoke?: No Smoking Status: Never smoker Does the pt drink ETOH?: No Does the pt have substance abuse?: No - Immunizations Immunizations are current?: Yes - POLST Patient has POLST: Yes PD ED PE NORMAL - Vitals Vital signs reviewed: Yes - General General: Alert and oriented X 3, No acute distress - HEENT HEENT: Moist mucous membranes - Neck Neck: Supple, no meningeal sign - Cardiac Cardiac: RRR, Strong equal pulses - Respiratory Respiratory: No respiratory distress, Clear bilaterally - Abdomen Abdomen: Soft, Non tender, Non distended - Female Female : Lamb[employer] Trimmer present (Yodit RN), Other (no visible bleeding. no rectal bleeding. ) - Back Back: No spinal TTP - Derm Derm: Warm and dry, No rash - Neuro Neuro: Alert and oriented X 3 - Psych Psych: Normal mood, Normal affect Results - Vitals Vitals: Vital Signs - 24 hr 04/21/17 04/21/17 04/21/17 14:28 16:29 17:29 Temperature 36.4 C L 36.7 C 36.8 C Heart Rate 62 63 66 Respiratory 20 16 18 Rate Blood Pressure 130/54 L 145/67 H 140/70 H O2 Saturation 100 97 97 Oxygen O2 Source [With Activity] Room air O2 Source [Without Activity] Room air O2 Source Room air - Labs Labs: Laboratory Tests 04/21/17 04/21/17 04/21/17 15:11 15:11 15:11 WBC 8.0 RBC 4.10 L Hgb 11.6 L Hct 36.9 L MCV 89.9 MCH 28.4 MCHC 31.6 L RDW 19.1 H Plt Count 202 MPV 7.9 Neut # 6.4 Lymph # 0.8 L Stafford # 0.7 Eos # 0.0 Baso # 0.0 Absolute Nucleated RBC 0.01 Nucleated RBC % 0.1 PT 42.7 H INR 4.0 H Sodium 143 Potassium 4.3 Chloride 104 Carbon Dioxide 28 Anion Gap 11.0 BUN 38 H Creatinine 1.1 H Estimated GFR (MDRD) 49 L Glucose 88 Calcium 9.1 Total Bilirubin 0.7 AST 26 ALT 72 H Alkaline Phosphatase 109 Total Protein 6.9 Albumin 3.3 Globulin 3.6 Albumin/Globulin Ratio 0.9 L Lipase 15 L Urine Color Urine Clarity Urine pH Ur Specific Pioneer Urine Protein Urine Glucose (UA) Urine Ketones Urine Occult Blood Urine Nitrite Urine Bilirubin Urine Urobilinogen Ur Leukocyte Esterase Urine RBC Urine WBC Urine WBC Clumps Ur Squamous Epith Cells Urine Bacteria Ur Microscopic Review Urine Culture Comments 04/21/17 15:11 WBC RBC Hgb Hct MCV MCH MCHC RDW Plt Count MPV Neut # Lymph # Stafford # Eos # Baso # Absolute Nucleated RBC Nucleated RBC % PT INR Sodium Potassium Chloride Carbon Dioxide Anion Gap BUN Creatinine Estimated GFR (MDRD) Glucose Calcium Total Bilirubin AST ALT Alkaline Phosphatase Total Protein Albumin Globulin Albumin/Globulin Ratio Lipase Urine Color YELLOW Urine Clarity SL. CLOUDY Urine pH 6.0 Ur Specific Pioneer 1.010 Urine Protein NEGATIVE Urine Glucose (UA) NEGATIVE Urine Ketones NEGATIVE Urine Occult Blood LARGE H Urine Nitrite POSITIVE H Urine Bilirubin NEGATIVE Urine Urobilinogen 0.2 (NORMAL) Ur Leukocyte Esterase MODERATE H Urine RBC TNTC H Urine WBC >25 H Urine WBC Clumps PRESENT Ur Squamous Epith Cells RARE Squamous Urine Bacteria Many H Ur Microscopic Review INDICATED Urine Culture Comments INDICATED PD MEDICAL DECISION MAKING - ED course Complexity details: reviewed results, re-evaluated patient, considered differential, d/w patient ED course: Patient is a 72-year-old female with a chronic indwelling Adams catheter, appears infected, will place on antibiotics for this. Also has an elevated INR and will have her hold her warfarin for the next several days. Will have her be retested with her doctor before restarting the warfarin. Does not appear to have a GI bleed. Appeared to have slight bleeding from the Adams insertion recently. This was likely mildly traumatic but given her significantly elevated INR last week, likely the cause of the scant bleeding. Patient is well- appearing, nontoxic. Afebrile. Patient counseled regarding signs and symptoms for which I believe and urgent re-evaluation would be necessary. Patient with good understanding of and agreement to plan and is comfortable going home at this time This document was made in part using voice recognition software. While efforts are made to proofread this document, sound alike and grammatical errors may occur. Departure - Departure Disposition: 01 Home, Self Care Clinical Impression: Supratherapeutic INR UTI (urinary tract infection) Qualifiers: Urinary tract infection type: acute cystitis Hematuria presence: without hematuria Qualified Code(s): N30.00 - Acute cystitis without hematuria Condition: Good Instructions: ED UTI Cystitis Female Follow-Up: Jacqueline Woods MD [Primary Care Provider] - Within 1 week Prescriptions: Cefdinir 300 mg PO BID #20 capsule Comments: Stop your warfarin. Take the cefdinir until gone. Recheck your INR in 3 days with your doctor. Discharge Date/Time: 04/21/17 17:29
[2017-04-21] MEDS ORDERED: DEXAMETHASONE 10 MG/ML VIAL ONE (15:37)
[2017-04-21 15:39] LABS: ALBUMIN/GLOBULIN RATIO 0.9 (1.0-2.2); BILIRUBIN,TOTAL 0.7 mg/dL (0.2-1.0); CALCIUM 9.1 mg/dL (8.5-10.3); CREATININE 1.1 mg/dL (0.4-1.0); POTASSIUM 4.3 mmol/L (3.5-5.0); TOTAL PROTEIN 6.9 g/dL (6.7-8.2)
[2017-04-21 15:54] LABS: UR CULTURE IF IND INDICATED; WBC,URINE >25 /HPF (0-5)
[2017-04-21 15:58] LABS: PT - PROTHROMBIN TIME 42.7 secs (9.9-12.6)
[2017-04-21] MEDS ORDERED: cefTRIAXone 1 GM VIAL IVP STA (16:15)
[2017-04-21] MEDS ORDERED: cefTRIAXone 1 GM VIAL IM STA (16:22)
[2017-04-21] MEDS ORDERED: cefTRIAXone 1 GM VIAL ONE (16:39)
[2017-04-21 17:34] VITALS: BP 140/70
== END 2017-04-21 17:29 | disposition home or self-care (01) ==
LOC: EDUNIT# → EDBD → ED 14:26
DX: N30.00 Acute cystitis without hematuria (principal); I11.0 Hypertensive heart disease with heart failure; I50.9 Heart failure, unspecified; E78.00 Pure hypercholesterolemia, unspecified; Z85.3 Personal history of malignant neoplasm of breast; Z96.0 Presence of urogenital implants; Z90.10 Acquired absence of unspecified breast and nipple
CPT/HCPCS: 36415; 80053; 81001; 81003; 83605; 83690; 85025; 85610; 87086; 96372; 99283; 99284

== ENCOUNTER 2017-05-08 08:00 | Outpatient (CLI) | payer MEDICARE ==
[2017-05-08 17:53] LABS: BILIRUBIN,URINE NEGATIVE (NEGATIVE)
[2017-05-08 18:01] LABS: UA w/ MICROSCOPIC CHARGE YES
[2017-05-08 18:08] LABS: UR CULTURE IF IND INDICATED; WBC,URINE >25 /HPF (0-5)
== END 2017-05-08 08:01 | disposition home or self-care (01) ==
LOC: LAB.R 08:00
PROVIDERS: ATTEND Physician Assistant Medical
DX: N39.0 Urinary tract infection, site not specified (principal)
CPT/HCPCS: 81001; 81003; 87077; 87086

== ENCOUNTER 2017-05-11 16:02 | Outpatient (CLI) | payer MEDICARE | END 2017-05-11 16:03 | disposition EMS.NT | LOC: EMS 16:02 | PROVIDERS: ATTEND Surgery | DX: Z03.89 Encounter for observation for other suspected diseases and conditions ruled out (principal) ==

== ENCOUNTER 2017-05-12 08:00 | Outpatient (CLI) | payer MEDICARE ==
[2017-05-12 12:14] LABS: CALCIUM 9.1 mg/dL (8.5-10.3); POTASSIUM 4.2 mmol/L (3.5-5.0)
== END 2017-05-12 08:01 | disposition home or self-care (01) ==
LOC: LAB.R 08:00
PROVIDERS: ATTEND Physician Assistant Medical
DX: I50.9 Heart failure, unspecified (principal)
CPT/HCPCS: 80048

== ENCOUNTER 2017-06-08 14:02 | Outpatient (CLI) | payer MEDICARE ==
[2017-06-08 18:08] LABS: BILIRUBIN,URINE NEGATIVE (NEGATIVE); GLUCOSE, URINE (UA) NEGATIVE (NEGATIVE); KETONES,URINE (UA) NEGATIVE (NEGATIVE); LEUKOCYTE ESTERASE, URINE NEGATIVE (NEGATIVE); NITRITE,URINE NEGATIVE (NEGATIVE); OCCULT BLOOD,URINE TRACE-LYSE (NEGATIVE); PROTEIN,URINE TRACE mg/dL (NEGATIVE); UROBILINOGEN,URINE 0.2 (NORMAL) E.U./dL (NORMAL)
[2017-06-08 18:13] LABS: CALCIUM 8.9 mg/dL (8.5-10.3); CREATININE 0.7 mg/dL (0.4-1.0)
[2017-06-08 18:18] LABS: CLARITY,URINE CLEAR (CLEAR)
[2017-06-08 18:19] LABS: RBC,URINE 0-5 /HPF (0-5); SQUAMOUS EPITHELIAL CELL,UR MANY Squamous (<= Few)
[2017-06-08 18:20] LABS: BACTERIA,URINE Rare /HPF (None Seen); MUCUS,URINE Few Strands
== END 2017-06-08 14:03 | disposition home or self-care (01) ==
LOC: LAB.F 14:02
PROVIDERS: ATTEND Physician Assistant Medical
DX: I42.6 Alcoholic cardiomyopathy (principal); Z79.01 Long term (current) use of anticoagulants; N28.9 Disorder of kidney and ureter, unspecified; R30.0 Dysuria
CPT/HCPCS: 36415; 80048; 81001; 85610; 87086

== ENCOUNTER 2017-06-19 10:16 | Outpatient (CLI) | payer MEDICARE ==
[2017-06-19 18:35] LABS: CALCIUM 8.7 mg/dL (8.5-10.3)
== END 2017-06-19 10:17 | disposition home or self-care (01) ==
LOC: LAB.F 10:16
PROVIDERS: ATTEND Physician Assistant Medical
DX: I42.6 Alcoholic cardiomyopathy (principal); N28.9 Disorder of kidney and ureter, unspecified; Z79.01 Long term (current) use of anticoagulants
CPT/HCPCS: 36415; 80048; 85610

== ENCOUNTER 2017-06-22 11:54 | Outpatient (CLI) | payer MEDICARE | END 2017-06-22 11:55 | disposition EMS.NT | LOC: EMS 11:54 | PROVIDERS: ATTEND Surgery | DX: Z03.89 Encounter for observation for other suspected diseases and conditions ruled out (principal); W18.39XA Other fall on same level, initial encounter; Y92.009 Unspecified place in unspecified non-institutional (private) residence as the place of occurrence of the external cause ==

== ENCOUNTER 2017-06-26 17:44 | Outpatient (CLI) | payer MEDICARE | END 2017-06-26 17:45 | disposition EMS.NT | LOC: EMS 17:44 | PROVIDERS: ATTEND Surgery | DX: S61.512A Laceration without foreign body of left wrist, initial encounter (principal); W18.11XA Fall from or off toilet without subsequent striking against object, initial encounter; Y92.002 Bathroom of unspecified non-institutional (private) residence as the place of occurrence of the external cause ==

== ENCOUNTER 2017-06-27 12:54 | Outpatient (CLI) | payer MEDICARE | END 2017-06-27 12:55 | disposition short-term general hospital (02) | LOC: EMS 12:54 | PROVIDERS: ATTEND Surgery | DX: R06.02 Shortness of breath (principal); R50.9 Fever, unspecified | CPT/HCPCS: A0425; A0429 ==

== ENCOUNTER 2017-07-28 16:16 | Outpatient (CLI) | payer MEDICARE | END 2017-07-28 16:17 | disposition EMS.NT | LOC: EMS 16:16 | PROVIDERS: ATTEND Surgery | DX: Z03.89 Encounter for observation for other suspected diseases and conditions ruled out (principal); W18.39XA Other fall on same level, initial encounter; Y92.008 Other place in unspecified non-institutional (private) residence as the place of occurrence of the external cause ==

== ENCOUNTER 2017-07-30 21:27 | Outpatient (CLI) | payer MEDICARE | END 2017-07-30 21:28 | disposition EMS.NT | LOC: EMS 21:27 | PROVIDERS: ATTEND Surgery | DX: Z03.89 Encounter for observation for other suspected diseases and conditions ruled out (principal); W07.XXXA Fall from chair, initial encounter; Y92.009 Unspecified place in unspecified non-institutional (private) residence as the place of occurrence of the external cause ==

== ENCOUNTER 2017-07-31 08:00 | Outpatient (CLI) | payer MEDICARE ==
[2017-07-31 17:27] LABS: BILIRUBIN,URINE NEGATIVE (NEGATIVE); GLUCOSE, URINE (UA) NEGATIVE (NEGATIVE); KETONES,URINE (UA) NEGATIVE (NEGATIVE); LEUKOCYTE ESTERASE, URINE MODERATE (NEGATIVE); NITRITE,URINE NEGATIVE (NEGATIVE); OCCULT BLOOD,URINE SMALL (NEGATIVE); PROTEIN,URINE 30 mg/dL (NEGATIVE); UROBILINOGEN,URINE 0.2 (NORMAL) E.U./dL (NORMAL)
[2017-07-31 17:48] LABS: BASOPHILS % (AUTO) 0.7 %; EOSINOPHILS % (AUTO) 0.2 %; HGB - HEMOGLOBIN 13.1 g/dL (12.0-16.0); LYMPHOCYTES # (AUTO) 1.3 10^3/uL (1.5-3.5); LYMPHOCYTES % (AUTO) 21.8 %; MEAN CORPUSCULAR HEMOGLOBIN 29.2 pg (27.0-31.0); MEAN CORPUSCULAR HGB CONC 31.6 g/dL (32.0-36.0); MEAN CORPUSCULAR VOLUME 92.5 fL (81.0-99.0); MEAN PLATELET VOLUME 8.3 fL (7.9-10.8); MONOCYTES # (AUTO) 0.7 10^3/uL (0.0-1.0); NEUTROPHILS % (AUTO) 65.3 %; PLT - PLATELET COUNT 191 10^3/uL (130-450); RED BLOOD COUNT 4.48 10^6/uL (4.20-5.40); RED CELL DISTRIBUTION WIDTH 19.3 % (12.0-15.0); WHITE BLOOD COUNT 6.1 x10^3/uL (4.8-10.8)
[2017-07-31 17:49] LABS: INR 4.1 (0.8-1.2); PT - PROTHROMBIN TIME 44.3 secs (9.9-12.6)
[2017-07-31 17:52] LABS: ALBUMIN 3.1 g/dL (3.2-5.5); BILIRUBIN,TOTAL 0.6 mg/dL (0.2-1.0); CALCIUM 8.8 mg/dL (8.5-10.3); TOTAL PROTEIN 6.2 g/dL (6.7-8.2)
[2017-07-31 17:54] LABS: CLARITY,URINE CLOUDY (CLEAR)
[2017-07-31 17:55] LABS: BACTERIA,URINE Many /HPF (None Seen); SQUAMOUS EPITHELIAL CELL,UR NONE SEEN (<= Few); WBC CLUMPS,URINE PRESENT
== END 2017-07-31 08:01 | disposition home or self-care (01) ==
LOC: LAB.R 08:00
PROVIDERS: ATTEND Physician Assistant Medical
DX: I50.32 Chronic diastolic (congestive) heart failure (principal); I48.0 Paroxysmal atrial fibrillation; N39.0 Urinary tract infection, site not specified
CPT/HCPCS: 36415; 80053; 81001; 81003; 85025; 85610; 87086

== ENCOUNTER 2017-09-05 08:00 | Outpatient (CLI) | payer MEDICARE ==
[2017-09-05 17:17] LABS: BILIRUBIN,URINE NEGATIVE (NEGATIVE); GLUCOSE, URINE (UA) NEGATIVE (NEGATIVE); KETONES,URINE (UA) NEGATIVE (NEGATIVE); LEUKOCYTE ESTERASE, URINE SMALL (NEGATIVE); NITRITE,URINE NEGATIVE (NEGATIVE); OCCULT BLOOD,URINE LARGE (NEGATIVE); PROTEIN,URINE 100 mg/dL (NEGATIVE); UROBILINOGEN,URINE 0.2 (NORMAL) E.U./dL (NORMAL)
[2017-09-05 17:27] LABS: CLARITY,URINE HAZY (CLEAR)
[2017-09-05 17:35] LABS: BACTERIA,URINE Moderate /HPF (None Seen); RBC,URINE TNTC /HPF (0-5); SQUAMOUS EPITHELIAL CELL,UR FEW Squamous (<= Few)
== END 2017-09-05 08:01 | disposition home or self-care (01) ==
LOC: LAB.R 08:00
PROVIDERS: ATTEND Nurse Practitioner Adult Health
DX: N39.0 Urinary tract infection, site not specified (principal)
CPT/HCPCS: 81001; 81003; 87086

== ENCOUNTER 2017-09-07 15:30 | Outpatient (CLI) | payer MEDICARE ==
--- NOTE | 2017-09-07 20:45 | CONSULTATION NOTE ---
Palliative Care Consultation - Referral Referring Provider: Hattie Pandey PA-C Time of Visit: 09/07/2012. 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 I am asked to provide support regarding symptom management and monitoring for appropriateness to return to hospice. FACE to FACE for Semi electric bed and Group I Mattress Due to weakness and immobility as a result of alcoholic cardiomyopathy, patient requires positioning of body in ways not feasible in an ordinary bed, such as elevation of head more than 30. Head of bed elevation over 30 will alleviate exacerbated symptoms caused by alcoholic cardiomyopathy. Patient also requires frequent change in body position, such as immediate elevation of head of bed from flat position to elevation over 30 as a result of weakness. Pillows and wedges have been unsuccessful and accommodating the desired head of bed elevation, therefore hospital bed will be necessary for treating the effects of alcoholic cardiomyopathy. Due to immobility, inability to reposition herself, and weakness as a result of alcoholic cardiomyopathy and severe deconditioning, the patient is completely immobile in bed and requires a group one support surface to promote healthy skin integrity, as well as reduce recurrence of decubitus ulcers while in bed. As a result of alcoholic cardiomyopathy the patient also suffers from fecal and urinary incontinence which can decrease skin integrity if not managed. Group 1 support will promote healthy skin integrity. - This patient is a 72-year-old woman recently discharged from Hospice. - Medical history: alcoholic cardiomyopathy/CHF, COPD, atrial fibrillation on anticoagulation, peripheral neuropathy, HTN, PVD, RA, chronic pain, obesity, asthma, h/o breast cancer, bilateral mastectomy (R in 1993 and L 08/02/16), post- mastectomy lymphedema syndrome of RUE. - She was hospitalized in Jun 2017 at [facility] in [place] for COPD exacerbation and cellulitis of lower extremities. - She was DC'd to [facility] 07/01/17 to 07/28/17 for rehab: PT for strengthening and ambulation OT for ADLs ST for cognition. - She was admitted with indwelling Adams catheter. - She was treated for UTI and moisture-associated wound of R groin and ulcer wounds of lower extremities. - She was admitted to hospice 08/01/2017 for her long-standing alcoholic cardiomyopathy, CHF plus E coli UTI and confusion. - In hospice, her cognition slowly improved and she recuperated. - She was discharged from hospice 09/05/17. - Wound on R heal, managed by VANESSA RN - Adams indwelling catheter, being managed by VANESSA RN, will educate regarding care & maintenance of indwelling catheter. - She remains bedbound and is dependent on assistance for repositioning, and for all ADLs, toileting and toilet hygiene. - She has been able to sit at the side of the bed with 1-person assist. - Experiencing urinary spasms, and leakage caused by spasms. UA ordered and positive for C diff and P mirabilisfole. - Afebrile, foul smelling urine in the Adams bag. Pelvis tender to palpation as reported by HH RN. - PT is starting this week. - Her goals are to transfer to a wheelchair, be able to go outside, go to christianity , and sing again in the christianity choir. - Music is a big part of her life. Medical/Surgical History - Past Medical History Cardiovascular: reports: Congestive heart failure (alcoholic cardiomyopathy), Hypertension, High cholesterol, Peripheral Vascular Disease, Atrial fibrillation , Murmur Respiratory: reports: Asthma, COPD, Pneumonia, Shortness of breath, Sleep apnea , CPAP use Neuro: reports: None, Peripheral neuropathy Endocrine/Autoimmune: reports: None GI: reports: GERD, Ulcers, Chronic diarrhea, Chronic constipation CLIENT SUPPORT PROFESSIONAL: reports: None, Breast cancer : reports: None, Retention, Incontinence, Indwelling catheter HEENT: reports: Other Psych: reports: Depression, Claustrophobia Musculoskeletal: reports: Osteoarthritis, Rheumatoid arthritis, Chronic back pain Derm: reports: Other drug resistant infections MRSA Hx?: Yes - Past Surgical History General: reports: Colonoscopy Ortho: reports: Other /CLIENT SUPPORT PROFESSIONAL: reports: Hysterectomy, Mastectomy (Left: 08/02/2016. Right: June 1993.) HEENT: reports: Cataracts (cataract surgery about 5 yrs ago), Tonsil/ Adenoidectomy - Substance History Dependence: Experiences withdrawal or developed tolerances: Alcohol (Sober. Quit drinking 3 years ago.) Tobacco Details: Other (Never smoker) Social History - Living Situation Living arrangement: At home Living Situation: With spouse/s.o. 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 , Renlado, who is originally from [facility], is her sole intensive care anaesthetist, he doesn't ask for help. They have one son, Chun.) Family History - Family History Family History: Mother: , Father: Family History Comment/Other: Mother age 70 of GI-related disease. Father age 80 of heart disease. Total of 5 siblings: One sister, healthy. One brother of heart disease and cancer. 2 surviving brothers. All brothers had prostate cancer. Medications/Allergies - Medications Home Medications: Ambulatory Orders Medication Instructions Recorded Confirmed Venlafaxine [Effexor] 75 mg PO TID 07/10/13 09/08/17 Furosemide [Lasix] 40 mg PO BID 12/28/15 09/08/17 Gabapentin 300 mg PO BID 12/28/15 09/08/17 Omeprazole [PriLOSEC] 20 mg PO DAILY PRN 12/28/15 09/08/17 Metoprolol Succinate 12.5 mg PO DAILY 07/27/16 09/08/17 Spironolactone 25 mg PO DAILY 07/27/16 09/08/17 Digoxin 125 mcg PO DAILY 09/08/17 09/08/17 Ipratropium/Albuterol Sulfate 1 unit INH BID PRN 09/08/17 09/08/17 [Iprat-Albut 0.5-3(2.5) mg/3 ml] LORazepam [Ativan] 0.5 mg PO Q6H PRN 09/08/17 09/08/17 Oxycodone HCl 5 mg PO Q4H PRN MDD use for 09/08/17 09/08/17 breakthrough pain only fentaNYL 12 MCG PATCH [Duragesic 12 mcg TD Q3D 09/08/17 09/08/17 12mcg patch] - Allergies Allergies/Adverse Reactions: Allergies Allergy/AdvReac Type Severity Reaction Status Date / Time penicillin G Allergy Intermediate Unknown Verified 04/21/17 14:41 Sulfa (Sulfonamide Allergy Intermediate Rash Verified 04/21/17 14:41 Antibiotics) dyazides Allergy Intermediate Unknown Uncoded 04/21/17 14:41 Review of Systems - Constitutional Constitutional: reports: Fatigue, Weakness, Other (Weight on 04/21/17 244.5 lbs. ). denies: Poor appetite - Eyes Eyes: reports: Blurred vision (Vision changes, plans to follow up with [facility]) - Cardiovascular Cardiovascular: reports: Edema, Exertional dyspnea. denies: Chest pain - Respiratory Respiratory: reports: Wheezing (asthma) - Gastrointestinal Gastrointestinal: reports: Diarrhea (occasional, chronic) - Genitourinary Genitourinary: reports: Other (Indwelling catheter; leaking due to spasms secondry to infection. UA positive for C diff and P mirabilis.). denies: Dysuria - Musculoskeletal Musculoskeletal: reports: Stiffness, Limited range of motion, Muscle weakness, Joint pain, Joint swelling (RA), Transfer issues - Neurological Neurological: reports: General weakness, Numbness (and tingling, bilateral LEs) , Memory problems - Psychiatric Psychiatric: reports: Depression, Anxiety - Hematologic/Lymphatic Hematologic/Lymphatic: reports: Lymphadenopathy (right arm) Physical Exam - Vital Signs Temperature: 96.8 F Pulse Rate: 56 O2 Saturation: 95 (room air) Blood Pressure: 145/75 - Physical Exam General Appearance: positive: No acute distress Eyes Bilateral: positive: EOMI, No lid inflammation, Conjunctivae nml, No scleral icterus ENT: positive: No signs of dehydration Neck: positive: No JVD, Trachea midline Cardiovascular: positive: Regular rate & rhythm, No murmur, No gallop Respiratory: positive: Chest non-tender, No respiratory distress. negative: Wheezes Skin: positive: Wound (Resolving, scabbed lesion of anterior R lower extremity) Extremities: positive: Joint swelling (RA), Other (Chronic RUE lymphedema 4+) Neurologic/Psychiatric: positive: Oriented x3, Mood/affect nml Palliative Care - POLST Patient has POLST: Yes POLST Status: DNR, Comfort Measures Pain: Location (arthritis in bilateral knees, and neuropathic pain of LEs), Comment (reports pain adequately controlled with patch and gabapentin) Tiredness/Fatigue: Mild (1-3) Drowsiness/Sedation: None Nausea: None, Severe (7-10) Anxiety: Moderate (4-6) Dyspnea: Mild (1-3) Anorexia: Mild (1-3) Constipation: No Performance Status: Dependent for ADLs, bathing, toileting and toileting hygiene, unable to transfer , turn, and position self. However, with help from RN she was able to sit on edge of bed. Patient is bed-bound, unable to be up or in chair. Unable to prepare meals. Can answer the telephone, carry on a normal conversation, but has difficulty with placing calls. Incontinent of bowel and bladder. - Palliative Care Discussion: - The patient states she is feeling better and better. - She wants to start singing again. She said she could have been a profession [place]. - Music is important to her and it is difficult to lose this. Something happened to her voice. - Her goal is to get well enough to join the christianity choir. - She has been in a wheelchair a long time, but at [facility] she was still able to walk some. - She has had major health scares for the past five years.- 2013 was alcohol- related issues, that's when she stopped drinking. - 2014-16 it was recurrent falls -- she had a very large gash in her leg that she didn't know how it happened. - 2016 had a colon cancer scare - 2018 hospitalization for COPD exacerbation and cellulitis, then rehab, then Hospice, and now palliative care. - We started to discuss getting help for the care giving. Her is very supportive and pleasant. - She reports that he nevers asks for help. The patient recognizes that they need to discuss getting caregiving help. - Discussed and provided education, information, and normalization for feelings and concerns. Weighed benefits and burdens. - Offered GLOBAL HUMAN RESOURCES DIRECTOR for resource support and help. They are going to discuss. - Her commodity supervisor, Lucretia Soto, will continue to visit her. Impression and Recommendations - Palliative Care Impression: This patient is a 72-year-old woman recently on Hospice (08/01/17 - 09/05/17) with a history of alcoholic cardiomyopathy/CHF, COPD, atrial fibrillation on anticoagulation, peripheral neuropathy, HTN, PVD, RA, chronic pain, obesity, asthma, h/o breast cancer, bilateral mastectomy postmastectomy lymphedema syndrome of RUE. She is bedbound, immobile and totally dependent on help for all ADLs, repositioning, toileting. She is starting PT this week; her goal is to become mobile via wheelchair, go outside, go to christianity and sing again in the choir. She remains at high risk of infection, skin breakdown and sequelae. She is starting today a cycle of antibiotics for UTI related to indwelling Adams catheter. She has Home Health RN, BETANCUR, and PT, and palliative care will provide support with symptom management, advanced care planning, and monitor for transition to Hospice when appropriate. Recommendations/Counseling Done: Atrial fibrillation, chronic: 4mg daily x 7 days, end 09/07/17. Recheck INR 4/5. E coli UTI secondary to bowel incontinence and indwelling catheter: UTI can cause spasms of bladder, causing ball of indwelling catheter to retract and cause leakage. This is the case with this patient. UA ordered and tested positive for E coli and P mirabilis. Start nitrofurantoin 100 mg cap. 1 capsule by mouth every 6 hours x 10 days for E coli UTI. P mirabilis is not sensitive to this antibiotic, will monitor. After antibiotic is completed, start D-Mannose for prophylactic against E coli infections. Spasms of bladder, secondary to infection: Start oxybutynin 2.5mg BID as needed x 5 days. #10. Chronic pain, RA and osteoarthritis: Stable; pain controlled with fentanyl 12.5mcg patch, Oxycodone 5mg q6h prn for breakthrough. Constipation: Patient denies. She is incontinent of bowel. Monitor closely, she is on fentanyl and PRN oxycodone. Provide bowel program as needed. Peripheral neuropathy: Stable, managed with gabapentin BID. Debility secondary to alcoholic cardiomyopathy/CHF: Managed on metorpolol for rate control, spinolactone for volue conrol and Lasix. PT commences this week for rehabilitation goals. SOB related to COPD: Combivent nebulizer BID as needed. Pressure wound, R heel: Wound dressing clean, dry, intact. Wound care managed by VANESSA RN. Depression with anxiety: Stable on daily venlafaxine, with lorazepam as needed for anxiety. Discussed self-soothing strategies for episodes of anxiety and dark moods: music, singing, reading. Advanced care planning: Reviewed POLST originally signed 08/01/17. Patient confirmed it still reflected her goals of care and there are no changes: DNR and comfort measures. social services specialist Lucretia Soto will continue her support visits. Follow up next week regarding antibiotic and oxybutynin started. Scheduled visit for October 12, 15:30
== END 2017-09-07 15:31 | disposition home or self-care (01) ==
LOC: PC 15:30
PROVIDERS: ATTEND Nurse Practitioner
DX: Z51.5 Encounter for palliative care (principal); I42.6 Alcoholic cardiomyopathy; I50.9 Heart failure, unspecified; I48.2 Chronic atrial fibrillation; T83.511D Infection and inflammatory reaction due to indwelling urethral catheter, subsequent encounter; N30.90 Cystitis, unspecified without hematuria; Z96.0 Presence of urogenital implants; N32.89 Other specified disorders of bladder; G89.29 Other chronic pain; R15.9 Full incontinence of feces; G62.9 Polyneuropathy, unspecified; R06.02 Shortness of breath; F41.8 Other specified anxiety disorders; J44.9 Chronic obstructive pulmonary disease, unspecified; Z74.01 Bed confinement status; F10.21 Alcohol dependence, in remission; Z66 Do not resuscitate
CPT/HCPCS: 99345

== ENCOUNTER 2017-10-02 08:00 | Outpatient (CLI) | payer MEDICARE ==
[2017-10-02 19:05] LABS: BILIRUBIN,URINE NEGATIVE (NEGATIVE); GLUCOSE, URINE (UA) NEGATIVE (NEGATIVE); KETONES,URINE (UA) NEGATIVE (NEGATIVE); LEUKOCYTE ESTERASE, URINE SMALL (NEGATIVE); NITRITE,URINE NEGATIVE (NEGATIVE); OCCULT BLOOD,URINE SMALL (NEGATIVE); PROTEIN,URINE NEGATIVE (NEGATIVE); UROBILINOGEN,URINE 0.2 (NORMAL) E.U./dL (NORMAL)
[2017-10-02 19:09] LABS: CLARITY,URINE CLEAR (CLEAR)
[2017-10-02 19:21] LABS: BACTERIA,URINE Many /HPF (None Seen); RBC,URINE TNTC /HPF (0-5); SQUAMOUS EPITHELIAL CELL,UR MANY Squamous (<= Few)
== END 2017-10-02 08:01 | disposition home or self-care (01) ==
LOC: LAB.R 08:00
PROVIDERS: ATTEND Family Medicine
DX: N39.0 Urinary tract infection, site not specified (principal)
CPT/HCPCS: 81001; 81003; 87086

== ENCOUNTER 2017-10-12 15:15 | Outpatient (CLI) | payer MEDICARE ==
--- NOTE | 2017-10-12 19:38 | CONSULTATION NOTE ---
Palliative Care Follow Up - Referral Referring Provider: Hattie Pandey PA-C Time of Visit: 10/12/2017. 15:15 - 16:05 Referral setting: Home (Seen in home setting due to taxing and considerable effort required to leave the home due to immobility and being bed-bound secondary to alchohoic cardiomyopathy.) Referral Reason: Chronic pain - Information Sources Records reviewed: RN notes reviewed, Previous records reviewed History/Review of Systems obtained from: Patient, Family, Caregiver, Nursing Exam limitations: Clinical condition (memory deficits) - History of Present Illness Update Brief HPI Update: [id number] for over-bed trapeze and hydraulic patient lift. Patient is immobile and confined to bed, unable to reposition herself. Patient would benefit from over-bed trapeze for self adjust of upper body/ shoulders for pressure redistribution and to aid otherwise total assist bed mobility due to profound degenerative joint pain and weakness, and anxiety with passive movement. Hydraulic patient lift needed for transfer training with caregiver. Patient will be total assist in transfer from bed to recliner due to above deficits. Transfer out of bed necessary to maintain/improve skin integrity, cardiopulmonary and bowel function. -72-year-old woman recently on Hospice for 5 weeks for complications of alcoholic cardiomyopathy/CHF and E coli UTI. -Discharged from Hospice 09/05/17. -Medical history: alcoholic cardiomyopathy/CHF, COPD, atrial fibrillation on anticoagulation, peripheral neuropathy, HTN, PVD, RA, chronic pain, obesity, asthma, h/o breast cancer with bilateral mastectomies (R in 1993, L on 08/02/16) , severe post-mastectomy lymphedema syndrome of RUE since 1993, h/o E coli UTI, now with indwelling Adams catheter. -Patient is receiving Himanshu MENDEZ RN care, bath aid, and PT. -Her , the main caregiver, has questionable capacity (he's possibly illiterate) of following medication administration instructions. -Patient's baseline confusion and memory deficits also affect her ability to comprehend and follow medication instructions. -After Hospice discharge, her insurance refused to [place] fentanyl patch, which had provided adequate pain control, -PCP's office persisted with the insurance company and eventually was able to get fentanyl patch approved. -Fentanyl was restarted 10/06/17. -Pt uses oxycodone 5mg q4hrs prn for breakthrough, but misunderstood and thought she must use it every 4 hours. -Pt reports pain had been uncontrolled, 01/12, even with patch, but today it has improved, 09/12. -Spouse reports he's giving oxycodone 3x day. -New caregiver, Yolanda, has just started this week. She has been training with PT to work with patient on her exercises and will also keep a log of pain medication administration. -I reinforced PT's instructions to patient to practice exercises 2-3x/day. Patient verbalized understanding. -New goal of care: Patient to be able to sit in her recliner chair. -Pt asked me about whether she needs to get back on Anastrozole for breast cancer. Social History - Living Situation Living arrangement: At home Living Situation: With spouse/s.o., With caregiver(s) Support System: Lives with , Renaldo, who is primary caregiver. They just hired Yoalnda for 4 hours/day x 3 days/week (,,) Medications/Allergies - Medications Home Medications: Ambulatory Orders Medication Instructions Recorded Confirmed Venlafaxine [Effexor] 75 mg PO DAILY 07/10/13 10/13/17 Furosemide [Lasix] 40 mg PO BID 12/28/15 10/13/17 Gabapentin 300 mg PO BID 12/28/15 10/13/17 Omeprazole [PriLOSEC] 20 mg PO DAILY PRN 12/28/15 10/13/17 Metoprolol Succinate 12.5 mg PO DAILY 07/27/16 10/13/17 Spironolactone 25 mg PO DAILY 07/27/16 10/13/17 Digoxin 125 mcg PO DAILY 09/08/17 10/13/17 Ipratropium/Albuterol Sulfate 1 unit INH BID PRN 09/08/17 10/13/17 [Iprat-Albut 0.5-3(2.5) mg/3 ml] LORazepam [Ativan] 0.5 mg PO Q6H PRN 09/08/17 10/13/17 Oxycodone HCl 5 mg PO Q4H PRN MDD use for 09/08/17 10/13/17 breakthrough pain only fentaNYL 12 MCG PATCH [Duragesic 12 mcg TD Q3D 09/08/17 10/13/17 12mcg patch] Ciprofloxacin [Cipro] 250 mg PO Q12H 10/13/17 10/13/17 Docusate Sodium 100 mg PO DAILY 10/13/17 10/13/17 Nystatin 1 applic TP BID 10/13/17 10/13/17 Oxybutynin Chloride 2.5 mg PO BID PRN MDD bladder 10/13/17 10/13/17 spasms Warfarin Sodium 4 mg PO 10/13/17 - Allergies Allergies/Adverse Reactions: Allergies Allergy/AdvReac Type Severity Reaction Status Date / Time penicillin G Allergy Intermediate Unknown Verified 04/21/17 14:41 Sulfa (Sulfonamide Allergy Intermediate Rash Verified 04/21/17 14:41 Antibiotics) dyazides Allergy Intermediate Unknown Uncoded 04/21/17 14:41 Review of Systems - Constitutional Constitutional: reports: Fatigue, Weakness, Other (Most recent weight is 244.5 lbs 04/21/17.) - Eyes Eyes: reports: Blurred vision - Cardiovascular Cardiovascular: reports: Edema (severe post-mastectomy lymphedema syndrome of RUE), Exertional dyspnea. denies: Chest pain - Respiratory Respiratory: denies: SOB at rest - Gastrointestinal Gastrointestinal: denies: Constipation - Genitourinary Genitourinary: reports: Other (indwelling Adams catheter). denies: Dysuria - Neurological Neurological: reports: General weakness, Memory problems - Psychiatric Psychiatric: reports: Depression, Anxiety - Hematologic/Lymphatic Hematologic/Lymphatic: reports: Lymphadenopathy, Recurrent infections (UTIs) Physical Exam - Vital Signs Temperature: 96.6 F Pulse Rate: 73 O2 Saturation: 96 Blood Pressure: 126/61 (wrist cuff) - Physical Exam General Appearance: positive: Alert, Mild distress (persistent squabbling, criticism, demands on spouse) Eyes Bilateral: positive: No lid inflammation, Conjunctivae nml, No scleral icterus Neck: positive: No JVD, Trachea midline Cardiovascular: positive: Regular rate & rhythm, No gallop, Systolic murmur (2/6 ) Respiratory: positive: Breath sounds nml Abdomen: positive: Obese Extremities: positive: Pedal edema (3+), Other (severe RUE lymphedema, chronic) Neurologic/Psychiatric: positive: Mood/affect nml, Disoriented to time Palliative Care - POLST Patient has POLST: Yes POLST Status: DNR, Comfort Measures Pain: Pain improved (since yesterday. Was 01/12, currently 09/12.) Depression: Moderate (4-6) Anxiety: Moderate (4-6) Dyspnea: None Constipation: No, Comment (On fentanyl and oxycodone. Was previously on morphine ER) - Palliative Care Discussion: Pain control is her main focus currently. She is also concerned about whether she should be taking Anastrozole, which was discontinued when she was admitted to Hospice. She is breast cancer stage III and was started on anastrozole by Dr. Ortiz in 09/2016 because she is not a candidate for chemotherapy. I will follow up with Dr Holland. The new caregiver appears keen and interested to learn how to assist with PT exercises and assist patient and caregiver any way she can. The spouse is planning to make time for himself during career guidance counselor's shifts. This is a very positive development because of his high risk for burnout. Impression and Recommendations - Palliative Care Impression: 72-year old wan discharged from Hospice (08/01/17-09/05/17) with a history of alcoholic cardiomyopathy/CHF, COPD, afib on anticoagulation, peripheral neuropathy, HTN, PVD, RA, chrnoic pain, obesity, asthmas, h/o breast cancer, bilateral mastectomy, post-mastectomy lymphedema syndrome of RUE. She is confined to bed and would benefit from over-bed trapeze and hydraulic lift so she can leave the bed and sit upright in a recliner. Her chronic pain was poorly controlled on morphine ER. Insurance last week finally authorized fentanyl patches, and since resuming the patch her pain levels have started improving. Will further titrate if indicated. PCP clinic is closely managing her medications, Home Health Nursing is monitoring pain, and palliative care will also continue to monitor. Recommendations/Counseling Done: Chronic pain: DC'd morphine ER after insurance authorized fentanyl TD patches. Continue fentanyl patch 12mcg Q72 hrs and oxycodone 5mg Q4h as needed for breakthrough pain. Patient has poor short-term memory and cognitive deficits and requires consistent reminders and training how to use the oxycodone. New caregiver will keep a log. Monitor pain levels, titrate as indicated. E coli UTI: Nitrofurantoin completed last month. Cipro 250 BID started 10/04 by PCP, duration of regimen unknown. Consider starting D-Mannose after completion of the current antibiotic. Constipation: Patient denies. Docusate sodium was started by PCP. Anxiety: Stable, use lorazepam as needed. Breast cancer Stage III s/p bilateral mastectomies: She was not a chemotherapy candidate and was started on anastrozole 09/2016. It was DC'd when she was admitted to hospice. Patient has inquired about restarting it. Will follow up with her oncologist, Dr Holland, whether she wants to restart it. KATIE Campoverde agrees with this plan. Advanced care planning: Patient is DNR and comfort care. She has severe disease and her status remains precarious; continue to monitor for transition to Hospice when appropriate. Next visit: November 09-15:30 Time Spent: 45 minutes were spent with more than 50% of the time spent on counseling, education, and coordination of care.
== END 2017-10-12 15:16 | disposition home or self-care (01) ==
LOC: PC 15:15
PROVIDERS: ATTEND Nurse Practitioner
DX: Z51.5 Encounter for palliative care (principal); G89.29 Other chronic pain; F41.9 Anxiety disorder, unspecified; Z85.3 Personal history of malignant neoplasm of breast; Z90.13 Acquired absence of bilateral breasts and nipples; I42.6 Alcoholic cardiomyopathy; I50.9 Heart failure, unspecified; Z74.01 Bed confinement status; J44.9 Chronic obstructive pulmonary disease, unspecified; Z96.0 Presence of urogenital implants; Z79.01 Long term (current) use of anticoagulants; Z79.891 Long term (current) use of opiate analgesic; E66.9 Obesity, unspecified; Z66 Do not resuscitate
CPT/HCPCS: 99349

== ENCOUNTER 2017-11-09 21:20 | Outpatient (CLI) | payer MEDICARE ==
--- NOTE | 2017-11-09 21:48 | CONSULTATION NOTE ---
Palliative Care Follow Up - Referral Referring Provider: Dr Suero; Hattie Pandey PA-C Time of Visit: 11/09/2017. 14:40 - 15:30 Referral setting: Home (Seen in home setting due to taxing and considerable effort required to leave the home due to immobility and being bedbound secondary to alcoholic cardiomyopathy.) Referral Reason: Anxiety, agitation - Information Sources Records reviewed: RN notes reviewed, Previous records reviewed History/Review of Systems obtained from: Patient, Family, Nursing Exam limitations: Clinical condition (memory deficits) - History of Present Illness Update Brief HPI Update: -72-year-old female discharge from hospice :18 weeks. She had been originally admitted to hospice for complications of alcoholic cardiomyopathy/ CHF and E. coli UTI. -Medical history: Alcoholic cardiomyopathy/CHF, COPD, atrial fibrillation on anticoagulation, peripheral neuropathy, HTN, PVD, RA, chronic pain, obesity, asthma, history of breast cancer with bilateral mastectomies (right in 1993, left in July 2016), severe post-mastectomy lymphedema syndrome of our ED since 1993, history of E. coli UTI, now with indwelling Adams catheter. -Patient continues to receive Home Health RN and health aid, plus Physical Therapy. -She has demonstrated increased anxiety around her pain and discomfort, was too anxious to be redirected 2 days ago during nursing visit. -Today, however, patient notes she is quite calm, pain is at manageable level. She does demonstrate some insight into her high anxiety levels two days ago. She does find that lorazepam calms her down. -We discussed some options for additional medications, she is agreeable to try a longer acting benzodiapine. Or non-benzo Buspar. An antipsychotic is also an option. I will consult with PCP. -I did speak with PCP clinic today (both Dr Suero and KATIE Pandey were out of office) and will follow up with a fax. I will be out the next 5 days. -Patient had been sleeping poorly, and so Trazodone was started last month, at her request. She reports improved sleep with oxycodone, Trazadone, and lorazepam taken at bedtime. She is also on fentanyl 12mcg patch and thinks she has good pain control in general. R knee is less painful today; they are using heat packets on it. Social History - Living Situation Living arrangement: At home Living Situation: With spouse/s.o. Support System: Lives with , Renaldo, who is primary caregiver. They had had Caregiver, Yolanda, for a few weeks. She will be increasing her days to ,,, for 4 hours. Renaldo takes these opportunities to get out and do some activities. He likes to go to the soup kitchen of [facility] on and . It's an enjoyable social occasion for him. He says he's been doing better since having caregiver support. Medications/Allergies - Medications Home Medications: Ambulatory Orders Medication Instructions Recorded Confirmed Venlafaxine [Effexor] 75 mg PO DAILY 07/10/13 10/13/17 Furosemide [Lasix] 40 mg PO BID 12/28/15 10/13/17 Gabapentin 300 mg PO BID 12/28/15 10/13/17 Omeprazole [PriLOSEC] 20 mg PO DAILY PRN 12/28/15 10/13/17 Metoprolol Succinate 12.5 mg PO DAILY 07/27/16 10/13/17 Spironolactone 25 mg PO DAILY 07/27/16 10/13/17 Digoxin 125 mcg PO DAILY 09/08/17 10/13/17 Ipratropium/Albuterol Sulfate 1 unit INH BID PRN 09/08/17 10/13/17 [Iprat-Albut 0.5-3(2.5) mg/3 ml] LORazepam [Ativan] 0.5 mg PO Q6H PRN 09/08/17 10/13/17 Oxycodone HCl 5 mg PO Q4H PRN MDD use for 09/08/17 10/13/17 breakthrough pain only fentaNYL 12 MCG PATCH [Duragesic 12 mcg TD Q3D 09/08/17 10/13/17 12mcg patch] Ciprofloxacin [Cipro] 250 mg PO Q12H 10/13/17 10/13/17 Docusate Sodium 100 mg PO DAILY 10/13/17 10/13/17 Nystatin 1 applic TP BID 10/13/17 10/13/17 Oxybutynin Chloride 2.5 mg PO BID PRN MDD bladder 10/13/17 10/13/17 spasms Warfarin Sodium 4 mg PO 10/13/17 traZODone [Desyrel] 25 - 50 mg PO .QHS PRN 11/09/17 11/09/17 - Allergies Allergies/Adverse Reactions: Allergies Allergy/AdvReac Type Severity Reaction Status Date / Time penicillin G Allergy Intermediate Unknown Verified 04/21/17 14:41 Sulfa (Sulfonamide Allergy Intermediate Rash Verified 04/21/17 14:41 Antibiotics) dyazides Allergy Intermediate Unknown Uncoded 04/21/17 14:41 Review of Systems - Constitutional Constitutional: reports: Weakness, Weight stable (Weight was 242 lbs at [facility]. She was 244.5 lbs 04/21/17.). denies: Poor appetite - Eyes Eyes: reports: Blurred vision - Cardiovascular Cardiovascular: reports: Edema (chronic post-mastectomy lymphedema syndrome of RUE), Decr. exercise tolerance - Respiratory Respiratory: denies: SOB at rest - Gastrointestinal Gastrointestinal: reports: Good appetite (her appetite is coming back) - Musculoskeletal Musculoskeletal: reports: Limited range of motion, Joint pain (R knee, "bone on bone"), Transfer issues (requires extensive assistance. has trapeze) - Psychiatric Psychiatric: reports: Anxiety, Aggitation (history of, though she is calm at today's visit) - Hematologic/Lymphatic Hematologic/Lymphatic: reports: Petechiae, Other (on long-term anticoagulant) Physical Exam - Vital Signs Temperature: 96.9 F Pulse Rate: 55 O2 Saturation: 97 (room air) Blood Pressure: 142/74 - Physical Exam General Appearance: positive: No acute distress, Alert, Anxious (patient's baseline appears to be a low-level, continual anxiety; speaks, ruminates, and interrupts habitually) Eyes Bilateral: positive: No lid inflammation, Conjunctivae nml, No scleral icterus ENT: positive: No signs of dehydration Neck: positive: Trachea midline Cardiovascular: positive: Regular rate & rhythm, No gallop, Systolic murmur (2/6 ) Respiratory: positive: Breath sounds nml Abdomen: positive: Soft, Obese Skin: positive: Other (red, non-pruritic, nonpainful discoloration with petechiae on anterior RLE below knee.) Extremities: positive: Pedal edema (3+) Neurologic/Psychiatric: positive: Oriented x3, Mood/affect nml Palliative Care - POLST Patient has POLST: Yes POLST Status: DNR, Comfort Measures Pain: Pain improved, Location (R knee) Anxiety: Moderate (4-6) Anorexia: None Performance Status: Bedbound; requires sling for transfers. Working with PT to progress on sitting, and her caregiver is getting training on transferring her in the sling. Adams catheter. PPS 30% - Palliative Care Discussion: Patient feels she is making progress with physical therapy. "I'm serious about what I want to do." Which is being able to get out of bed, and to sing again in the choir. PT sessions have been about getting her in the chair. Her anxiety can be detrimental to the progress of PT; HH RN notes that she can get into a near panic. Patient is agreeable to starting medications. We also discussed using various coping and distraction methods. biostatistics professor is Lucretia Soto, who continues to visit her. Impression and Recommendations - Palliative Care Impression: This patient is a 72-year-old woman who had been on hospice for about 5 weeks, discharged 09/05/17 due to no longer meeting criteria. She has a complicated medical history of alcoholic cardiomyopathy and CHF, COPD, atrial fib on long- term anticoagulation, peripheral neuropathy, bilateral mastectomy, etc. She is totally bedbound but is receiving outpatient physical therapy with the goal of being able to get out of the house and rejoin her choir. She states she is quite determined, but it is quite questionable that goal this can be accomplished. She continues on home health nursing, health aid, and physical therapy. Her baseline level of anxiety can escalate, interrupting progress with physical therapy and care, even tipping into panic, per RN report. She may benefit from additional medication management for this. Palliative care will continue to monitor and provide support, with transition back to hospice Recommendations/Counseling Done: Constipation: Patient denies, but continue to monitor for opioid-induced constipation (oxycodone and fentanyl). She uses docusate sodium. Chronic pain, RA and osteoarthritis: Stable. Using fentanyl 12mcg and oxycodone 5mg q4h prn for breakthrough, and heatpack for pain in R knee. Peripheral neuropathy: continue gabapentin BID Insomnia: Improved with trazodone, oxycodone and lorazepam at bedtime. Anxiety: Patient was very stable and calm today, but Home Health RN reports episodes of increased anxiety, at times uncontrolled, nearly to the point of panic two days ago. Currently using lorazepam 0.5mg q6h prn. Can consider adding non-benzo Buspar as an adjunct, or switching to long-acting clonazepam. Other option is low dose of antipsychotic: olanzapine or risperidone. Will pass this by KATIE Pandey, since the PCP clinic is closely monitoring her medications. Advanced care planning: DNR and comfort measures. Patient is pursuing PT hoping to reach her goal of becoming more mobile, leaving the house, and joining choir. She states she is serious about this, but she is lacking insight. A more achievable goal is sitting in her recliner, or possible being able to sit on the porch. PT is working with her in the sling, and her caregiver is getting trained. Palliative care will continue to monitor and provide support. Time Spent: 50 minutes were spent with more than 50% of the time spent on counseling, education, and coordination of care.
== END 2017-11-09 21:21 | disposition home or self-care (01) ==
LOC: PC 21:20
PROVIDERS: ATTEND Nurse Practitioner
DX: Z51.5 Encounter for palliative care (principal); K59.03 Drug induced constipation; T40.2X5D Adverse effect of other opioids, subsequent encounter; Z79.891 Long term (current) use of opiate analgesic; G62.9 Polyneuropathy, unspecified; F41.9 Anxiety disorder, unspecified; I42.6 Alcoholic cardiomyopathy; R45.1 Restlessness and agitation; Z74.01 Bed confinement status; Z85.3 Personal history of malignant neoplasm of breast; M25.561 Pain in right knee; Z66 Do not resuscitate
CPT/HCPCS: 99349

== ENCOUNTER 2017-11-14 10:30 | Outpatient (CLI) | payer MEDICARE ==
[2017-11-14 18:19] LABS: BILIRUBIN,URINE NEGATIVE (NEGATIVE); GLUCOSE, URINE (UA) NEGATIVE (NEGATIVE); KETONES,URINE (UA) NEGATIVE (NEGATIVE); LEUKOCYTE ESTERASE, URINE SMALL (NEGATIVE); NITRITE,URINE NEGATIVE (NEGATIVE); OCCULT BLOOD,URINE TRACE-INTA (NEGATIVE); PH,URINE 6.5 PH (5.0-7.5); PROTEIN,URINE NEGATIVE (NEGATIVE); UROBILINOGEN,URINE 0.2 (NORMAL) E.U./dL (NORMAL)
[2017-11-14 18:21] LABS: CLARITY,URINE HAZY (CLEAR)
[2017-11-14 18:56] LABS: BACTERIA,URINE Rare /HPF (None Seen); RBC,URINE 0-5 /HPF (0-5); SQUAMOUS EPITHELIAL CELL,UR RARE Squamous (<= Few)
== END 2017-11-14 10:31 ==
LOC: LAB.R 10:30
PROVIDERS: ATTEND Physician Assistant Medical
DX: N39.0 Urinary tract infection, site not specified (principal)
CPT/HCPCS: 81001; 81003; 87077; 87086; 87181

== ENCOUNTER 2017-11-15 14:00 | Outpatient (CLI) | payer MEDICARE ==
--- NOTE | 2017-11-15 19:44 | CONSULTATION NOTE ---
Palliative Care Follow Up - Referral Referring Provider: Hattie Pandey PA-C Time of Visit: 11/15/2017. 14:00 - 14:15 Referral setting: Home (Seen in home setting due to taxing and considerable effort required to leave the home due to immobility and being bed bound secondary to alcoholic cardiomyopathy.) Referral Reason: Face to face for wheelchair referral - Information Sources Records reviewed: Previous records reviewed History/Review of Systems obtained from: Patient, Family, Nursing, Other ( Physical Therapist) Exam limitations: Clinical condition (memory deficits) - History of Present Illness Update Brief HPI Update: -72-year-old female who was discharged from hospice in 09/05/2017 after she had been in hospice for 5 weeks, admitted for complications of alcoholic cardiomyopathy, CHF, and E. coli UTI. -Medical history: Alcoholic cardiomyopathy/CHF, COPD, atrial fibrillation on anticoagulation, peripheral neuropathy, HTN, PVD, RA, chronic pain, obesity, asthma, history of breast cancer with bilateral mastectomies (right in 1993, left in July 2016), severe post-mastectomy lymphedema syndrome since 1993, history of E. coli UTI, now with indwelling Adams catheter. -Patient receives home health nursing, health aide, and physical therapy. -PCP will be starting Zyprexa for increased agitation and anxiety. Ativan will be discontinued. Notified patient of this plan. [id number] ASSESSMENT FOR WHEELCHAIR Patient requires 20x20" manual wheelchair with extending leg rests, a 3" gel- foam cushion and anti-tippers to limit tip-back during Nancy transfers. Patient's most recent weight is listed as 240-245 lbs so she needs a larger than standard seat and extending leg rests, due to her size, her peripheral vascular disease and rheumatoid arthritis/pain issues. Due to immobility secondary to lower extremity weakness and severe knee pain as a result of alcoholic cardiomyopathy/CHF and degenerative joint disease, the patient is completely non-ambulatory inside the home as well as outside of the home. As a result of non-ambulatory status, patient is therefore unable to accomplish all mobility-related aids to daily living activities, such as toileting, feeding, bathing and grooming with the assistance of a wheelchair due to immobility secondary to lower extremity weakness. Due to the effects of lower extremity weakness and knee pain, patient is completely incapable of using a cane or walker inside the home. Patient will be reliant upon a wheelchair to accomplish all mobility-related aids to daily living in the home such as toileting, feeding, bathing, and grooming. Patient has not expressed an unwillingness to use the wheelchair. Patient does not have sufficient upper extremity function to safely propel a wheelchair, but has caregiver assistance who is able to assist with the wheelchair propulsion. The use of a wheelchair will significantly improve patient's ability to successfully participate in her MRADLs (grooming, bathing, feeding, and toileting) and as a result, patient's functional mobility deficits will be resolved. A 20" x 20" seat size is required due patient measurements, Elevating leg rests are required intolerance with severe knee pain when in unsupported knee flex for more than 5-15 minutes, and due to PVD, feet turn purple in same time frame. A 3" gel-foam cushion recommended due to history of buttock skin ulcers/skin fragility and impaired mobility as noted. Due to patient's last measured weight of 240-245 lbs, a general use cushion would be inadequate and of insufficient durability for patient's weight. See Physical Therapist's visit notes for details. Fax this note to: [facility] [phone]. Attach "Pending Authorization # [id number]" to fax cover sheet Social History - Living Situation Living arrangement: At home Living Situation: With spouse/s.o. Support System: Her , Renaldo, is her primary caregiver. Yolanda, a hired caregiver, comes 3 days/week about 4 hours daily (T,W,). Medications/Allergies - Medications Home Medications: Ambulatory Orders Medication Instructions Recorded Confirmed Venlafaxine [Effexor] 75 mg PO DAILY 07/10/13 10/13/17 Furosemide [Lasix] 40 mg PO BID 12/28/15 10/13/17 Gabapentin 300 mg PO BID 12/28/15 10/13/17 Omeprazole [PriLOSEC] 20 mg PO DAILY PRN 12/28/15 10/13/17 Metoprolol Succinate 12.5 mg PO DAILY 07/27/16 10/13/17 Spironolactone 25 mg PO DAILY 07/27/16 10/13/17 Digoxin 125 mcg PO DAILY 09/08/17 10/13/17 Ipratropium/Albuterol Sulfate 1 unit INH BID PRN 09/08/17 10/13/17 [Iprat-Albut 0.5-3(2.5) mg/3 ml] Oxycodone HCl 5 mg PO Q4H PRN MDD use for 09/08/17 10/13/17 breakthrough pain only fentaNYL 12 MCG PATCH [Duragesic 12 mcg TD Q3D 09/08/17 10/13/17 12mcg patch] Ciprofloxacin [Cipro] 250 mg PO Q12H 10/13/17 10/13/17 Docusate Sodium 100 mg PO DAILY 10/13/17 10/13/17 Nystatin 1 applic TP BID 10/13/17 10/13/17 Oxybutynin Chloride 2.5 mg PO BID PRN MDD bladder 10/13/17 10/13/17 spasms Warfarin Sodium 4 mg PO 10/13/17 traZODone [Desyrel] 25 - 50 mg PO .QHS PRN 11/09/17 11/09/17 OLANZapine [Zyprexa] 1 ea PO DAILY MDD PCP to set dose 11/15/17 11/15/17 - Allergies Allergies/Adverse Reactions: Allergies Allergy/AdvReac Type Severity Reaction Status Date / Time penicillin G Allergy Intermediate Unknown Verified 04/21/17 14:41 Sulfa (Sulfonamide Allergy Intermediate Rash Verified 04/21/17 14:41 Antibiotics) dyazides Allergy Intermediate Unknown Uncoded 04/21/17 14:41 Review of Systems - Constitutional Constitutional: reports: Weight stable (240-245 lbs) - Gastrointestinal Gastrointestinal: reports: Diarrhea (has episodes of runny stool). denies: Constipation - Musculoskeletal Musculoskeletal: reports: Limited range of motion, Joint pain, Assistive devices (wheelchair), Transfer issues (improving with trapeze. Sits up in recliner. Spent time out on patio on current wheelchair, which is inappropriate size for her) - Neurological Neurological: reports: General weakness - Other Findings Other Findings: focused ROS Physical Exam - Vital Signs Temperature: 96.6 F Pulse Rate: 77 O2 Saturation: 98 (room air) Blood Pressure: 126/67 - Physical Exam General Appearance: positive: No acute distress, Alert Eyes Bilateral: positive: EOMI, No lid inflammation, Conjunctivae nml, No scleral icterus ENT: positive: No signs of dehydration Neck: positive: No JVD, Trachea midline Cardiovascular: positive: Regular rate & rhythm Respiratory: positive: No respiratory distress, Breath sounds nml Abdomen: positive: Soft, Obese Extremities: positive: Pedal edema (3+), Other (RUE severe chronic lymphedema) Neurologic/Psychiatric: positive: Oriented x3, Mood/affect nml Palliative Care - POLST Patient has POLST: Yes POLST Status: DNR, Comfort Measures Pain: Pain unchanged Anxiety: Moderate (4-6) Anorexia: None Constipation: No Performance Status: Progressing in physical therapy. transferring out of bed, sitting in recliner; sitting in borrowed wheelchair (too small, old, victor hugo, fixed leg rests), needs better fitting wheelchair to progress further. Impression and Recommendations - Palliative Care Impression: This is a 72-year-old woman who had been on hospice for 5 weeks but was discharged 09/25/17 due to no longer meeting criteria. She continues working with physical therapy on mobility, strength, and transferring to achieve her goal of getting out of the house and joining the choir. She requires an appropriate-sized wheelchair to continue to progress in therapy. Palliative care will continue to monitor and provide support as needed. Recommendations/Counseling Done: Debility, physical: 20x20 manual wheelchair required, with gel cushion, extension leg rests, and anti-tipper attachments. See HPI of this note and Physical Therapist notes for details. Continue Home Health RN, Physical Therapy , and health aid support. Constipation: Patient denies constipation, but does have episodic runny stools. Continue to monitor for opioid-related constipation. Anxiety: PCP Hattie Pandey PA-C, will D/C lorazepam and start zyprexa. Advanced care planning: POLST is DNR and comfort measures. Patient's goal is mobility in her wheelchair, and returning to singing in the choir. Her transfer issues are such that she will not be able to get into a vehicle, and [employer] is not available, so going to choir is not feasible, but mobility within her home is achievable. Time Spent: 15 minutes were spent with more than 50% of the time spent on counseling, education, and coordination of care.
== END 2017-11-15 14:01 | disposition home or self-care (01) ==
LOC: PC 14:00
PROVIDERS: ATTEND Nurse Practitioner
DX: Z51.5 Encounter for palliative care (principal); F41.9 Anxiety disorder, unspecified; I42.6 Alcoholic cardiomyopathy; I50.9 Heart failure, unspecified; J44.9 Chronic obstructive pulmonary disease, unspecified; E66.9 Obesity, unspecified; Z96.0 Presence of urogenital implants; Z79.01 Long term (current) use of anticoagulants; Z79.891 Long term (current) use of opiate analgesic; M62.81 Muscle weakness (generalized); Z66 Do not resuscitate
CPT/HCPCS: 99347

== ENCOUNTER 2017-11-29 14:40 | Outpatient (CLI) | payer MEDICARE ==
[2017-11-29 18:02] LABS: BILIRUBIN,URINE NEGATIVE (NEGATIVE); GLUCOSE, URINE (UA) NEGATIVE (NEGATIVE); KETONES,URINE (UA) NEGATIVE (NEGATIVE); LEUKOCYTE ESTERASE, URINE MODERATE (NEGATIVE); NITRITE,URINE NEGATIVE (NEGATIVE); OCCULT BLOOD,URINE LARGE (NEGATIVE); PROTEIN,URINE NEGATIVE (NEGATIVE); UROBILINOGEN,URINE 0.2 (NORMAL) E.U./dL (NORMAL)
[2017-11-29 18:06] LABS: CLARITY,URINE SL. CLOUDY (CLEAR)
[2017-11-29 18:23] LABS: RBC,URINE TNTC /HPF (0-5); SQUAMOUS EPITHELIAL CELL,UR RARE Squamous (<= Few); WBC CLUMPS,URINE PRESENT
[2017-11-29 18:24] LABS: BACTERIA,URINE None Seen /HPF (None Seen)
== END 2017-11-29 14:41 | disposition home or self-care (01) ==
LOC: LAB.R 14:40
PROVIDERS: ATTEND Physician Assistant Medical
DX: N39.0 Urinary tract infection, site not specified (principal)
CPT/HCPCS: 81001; 81003; 87077; 87086; 87181

== ENCOUNTER 2017-12-13 20:59 | Outpatient (CLI) | payer MEDICARE ==
--- NOTE | 2017-12-13 21:13 | CONSULTATION NOTE ---
Palliative Care Follow Up - Referral Referring Provider: Hattie Pandey PA-C Time of Visit: 12/13/2017. 13:05 - 14:00 Referral setting: Home (Seen in home setting due to taxing and considerable effort required to leave the home due to immobility and being bed-bound secondary to alcoholic cardiomyopathy.) Referral Reason: Pain control - Information Sources Records reviewed: Previous records reviewed History/Review of Systems obtained from: Patient, Family, Caregiver Exam limitations: Clinical condition (memory deficits) - History of Present Illness Update Brief HPI Update: 72-year-old female discharged from hospice September 2017 after she had been in hospice for 5 weeks, admitted for complications of alcoholic cardiomyopathy, CHF , and E. coli UTI. -Medical history: Alcoholic cardiomyopathy/CHF, COPD, atrial fibrillation on anticoagulation, peripheral neuropathy, HTN, PVD, RA, chronic pain, obesity, asthma, history of breast cancer with bilateral mastectomies (right in 1993, left in July 2016), severe postmastectomy lymphedema syndrome of RUE since 1993, history of E. coli UTI, now indwelling Adams catheter. -Patient was discharged from PT and HH Aid in November. -Patient continues to receive home health nursing for pain assessment, medication management, buttocks wound. -Patient reports she is making good progress in PT, today sat 2 hours in recliner, also has gone outside in W/C for 10 minutes at a time. -Her anxiety has diminished and concentration has improved after switching from lorazepam to olanzapine. -She continues to have pain in knees, back/neck/shoulders and R upper extremity secondary to severe post-mastectomy lymphedema syndrome. -Patient is currently on 12mcg fentanyl patch, and has been using oxycodone daily for breakthrough pain, usually 3-4x/day. This is a Morphine Equivalent Dosing (MED) of 52-58mg per day. Social History - Living Situation Living arrangement: At home Living Situation: With spouse/s.o. Support System: Renaldo, the spouse is sole caregiver. They have one adult son, he appears not to be closely involved in caregiving. Yolanda, the PATRICIA caregiver comes 3 days/week for 4 hours. HH RN comes twice weekly. Medications/Allergies - Medications Home Medications: Ambulatory Orders Medication Instructions Recorded Confirmed Venlafaxine [Effexor] 75 mg PO DAILY 07/10/13 12/14/17 Furosemide [Lasix] 40 mg PO BID 12/28/15 12/14/17 Gabapentin 300 mg PO BID 12/28/15 12/14/17 Omeprazole [PriLOSEC] 20 mg PO DAILY PRN 12/28/15 12/14/17 Metoprolol Succinate 12.5 mg PO DAILY 07/27/16 12/14/17 Spironolactone 12.5 mg PO DAILY 07/27/16 10/13/17 Digoxin 125 mcg PO DAILY 09/08/17 12/14/17 Ipratropium/Albuterol Sulfate 1 unit INH BID PRN 09/08/17 12/14/17 [Iprat-Albut 0.5-3(2.5) mg/3 ml] Oxycodone HCl 5 mg PO BID PRN MDD use for 09/08/17 12/14/17 breakthrough pain only fentaNYL 12 MCG PATCH [Duragesic 24 mcg TD Q3D 09/08/17 10/13/17 12mcg patch] Docusate Sodium 100 mg PO DAILY 10/13/17 12/14/17 Nystatin 1 applic TP BID 10/13/17 12/14/17 Oxybutynin Chloride 5 mg PO BID PRN MDD bladder spasms 10/13/17 12/14/17 Warfarin Sodium 4 mg PO 10/13/17 traZODone [Desyrel] 25 - 50 mg PO .QHS PRN 11/09/17 12/14/17 OLANZapine [Zyprexa] 5 mg PO QPM 11/15/17 12/14/17 OLANZapine [Olanzapine] 2.5 mg PO .QAM 12/14/17 12/14/17 Senna Tea 1 ea DAILY PRN 12/14/17 - Allergies Allergies/Adverse Reactions: Allergies Allergy/AdvReac Type Severity Reaction Status Date / Time penicillin G Allergy Intermediate Unknown Verified 04/21/17 14:41 Sulfa (Sulfonamide Allergy Intermediate Rash Verified 04/21/17 14:41 Antibiotics) dyazides Allergy Intermediate Unknown Uncoded 04/21/17 14:41 Review of Systems - Constitutional Constitutional: reports: Weakness, Weight stable (Unable to take weight. L bicep 39.5cm. Previous measured weight was 240-245 lbs.). denies: Poor appetite - Ears, Nose & Throat Ears, Nose & Throat: reports: Hearing loss - Cardiovascular Cardiovascular: reports: Irregular heart rate, Decr. exercise tolerance. denies : Chest pain - Respiratory Respiratory: reports: SOB with exertion - Gastrointestinal Gastrointestinal: reports: Constipation (episodic.), Diarrhea (reports that "senna pill blew her out."), Good appetite - Musculoskeletal Musculoskeletal: reports: Back pain, Joint pain, Assistive devices (wheelchair) , Transfer issues (uses over bed trapeze to help with repositioning) - Psychiatric Psychiatric: reports: Anxiety, Behavior disturbances (improved with olanzapine) - Hematologic/Lymphatic Hematologic/Lymphatic: reports: Other (chronic post-mastectomy pymphedema syndrome of RUE since 1993) Physical Exam - Vital Signs Temperature: 96.8 F Pulse Rate: 53 O2 Saturation: 98 (room air) Blood Pressure: 154/70 - Physical Exam General Appearance: positive: No acute distress, Alert Eyes Bilateral: positive: No lid inflammation, Conjunctivae nml, No scleral icterus ENT: positive: No signs of dehydration Neck: positive: Trachea midline Cardiovascular: positive: Systolic murmur (2/) Respiratory: positive: Chest non-tender, No respiratory distress, Breath sounds nml Abdomen: positive: Non-tender, Soft, Nml bowel sounds, Obese Skin: positive: Pressure wound (buttocks wound) Extremities: positive: No pedal edema, Other (contractures of toes; R newton has hemosiderin discoloration) Neurologic/Psychiatric: positive: Oriented x3, Mood/affect nml Palliative Care - POLST Patient has POLST: Yes POLST Status: DNR, Comfort Measures Pain: Pain improved Anxiety: Comment (improved) Anorexia: None Constipation: Managed (using senna tea, discussed going back to senna tablets, using every other day.) Performance Status: Mainly bed bound but making some progress with sitting in chair (2 hours recently) and wheelchair mobility, going outside on their deck. Aim is to "walk " or at least be mobile in w/c and able to leave the house. Impression and Recommendations - Palliative Care Impression: 72-year-old female previously on hospice for 5 weeks with alcoholic cardiomyopathy, was discharged September 2017 after she . She is now bed-bound and totally dependent for transfers and ADLs, but is making some progress with sitting up in recliner and wheelchair. She has chronic pain controlled with fentanyl and oxycodone and would benefit from titration due to persistent usage of breakthrough pain medication. Anxiety and concentration levels have improved with recent switch to olanzapine instead of lorazepam. Home health nursing continues to provide services, and palliative care will continue to monitor and provide support. Recommendations/Counseling Done: Chronic pain: Currently using fentanyl 12mcg patch with oxycodone 3-4x most days for breakthrough pain, which is a MED of 52-58mg daily. Increasing fentanyl to 25mcg (or 12mcg x2 temporarily) would increase the baseline MED to 60mg/day. I discussed with KATIE Pandey and we agreed to a trial increase of Fentanyl to 25mcg (or two 12mcg, since patient has a supply of the 12mcg patches) with the intent of decreasing patient's use of oxycodone for breakthrough pain. 1. Discontinue Fentanyl patch 12mcg Q3days and oxycodone 5mg tab PO q4h prn. 2. Start Fentanyl two 12 mcg patches TD Q3 days and oxycodone 5mg tab PO BID prn. The patient has two 12mcg patches left (to be applied 12/14), plus a script for ten 12-mcg patches ready to fern picker at [facility] [place]. They will fern picker the new orders from PCP's clinic. They use [facility] in [place]. After my conversation with KATIE Pandey, I followed up with spouse by phone 12/13 detailing the medication changes. He verbalized understanding. I will follow up with a phone call 12/14. RN to follow up with pt and spouse at next RN visit on 12/15 to confirm medication changes are understood and implemented. Peripheral neuropathy: Improved with gabapentin BID. Anxiety: Improved since DC'ing lorazepam and starting Zyprexa/olanzapine. Debility, physical: Improved, sat in recliner 2 hours and uses wheelchair for short periods out on thewick. Continues to be total assist for transfers. Was DC 'd from PT November 23. Caregiver continues to assist with Home Exercise Program. Advanced care planning: Patient's goal is to at least be able to sit up in wheelchair and regain some mobility. She has been discharged from PT, and we discussed her continuing the PT exercises, which Yolanda the caregiver assists with. Patient's POLST is DNR, comfort measures. Follow up visit: 01/24 13:00. Time Spent: 55 minutes were spent with more than 50% of the time spent on counseling, education, and coordination of care.
== END 2017-12-13 21:00 | disposition home or self-care (01) ==
LOC: PC 20:59
PROVIDERS: ATTEND Nurse Practitioner
DX: Z51.5 Encounter for palliative care (principal); G89.29 Other chronic pain; I97.2 Postmastectomy lymphedema syndrome; G62.9 Polyneuropathy, unspecified; F41.9 Anxiety disorder, unspecified; I42.6 Alcoholic cardiomyopathy; I11.0 Hypertensive heart disease with heart failure; I50.9 Heart failure, unspecified; L89.309 Pressure ulcer of unspecified buttock, unspecified stage; K59.00 Constipation, unspecified; Z74.01 Bed confinement status; Z87.440 Personal history of urinary (tract) infections; Z66 Do not resuscitate; Z79.891 Long term (current) use of opiate analgesic; J44.9 Chronic obstructive pulmonary disease, unspecified; I48.91 Unspecified atrial fibrillation; Z79.01 Long term (current) use of anticoagulants; I73.9 Peripheral vascular disease, unspecified; M06.9 Rheumatoid arthritis, unspecified; E66.9 Obesity, unspecified; Z85.3 Personal history of malignant neoplasm of breast; Z90.13 Acquired absence of bilateral breasts and nipples; Z96.0 Presence of urogenital implants
CPT/HCPCS: 99349

== ENCOUNTER 2017-12-19 08:00 | Outpatient (CLI) | payer MEDICARE ==
[2017-12-19 20:13] LABS: HB2 TOTAL 13.4 g/dL; HEMOGLOBIN A1C 0.51 g/dL; HEMOGLOBIN A1C % 5.6 % (4.6-6.2)
== END 2017-12-19 08:01 ==
LOC: LAB.F 08:00
PROVIDERS: ATTEND Physician Assistant Medical
DX: R73.9 Hyperglycemia, unspecified (principal)
CPT/HCPCS: 36415; 83036

== ENCOUNTER 2018-01-02 14:35 | Outpatient (CLI) | payer MEDICARE ==
[2018-01-02 18:00] LABS: PT - PROTHROMBIN TIME 51.6 secs (9.9-12.6)
[2018-01-02 18:43] LABS: INR 4.9 (0.8-1.2)
== END 2018-01-02 14:36 | disposition home or self-care (01) ==
LOC: LAB.R 14:35
PROVIDERS: ATTEND Physician Assistant Medical
DX: R79.1 Abnormal coagulation profile (principal)
CPT/HCPCS: 85610

== ENCOUNTER 2018-01-03 08:00 | Outpatient (CLI) | payer MEDICARE ==
[2018-01-03 17:30] LABS: INR 3.6 (0.8-1.2); PT - PROTHROMBIN TIME 38.8 secs (9.9-12.6)
== END 2018-01-03 08:01 | disposition home or self-care (01) ==
LOC: LAB.R 08:00
PROVIDERS: ATTEND Physician Assistant Medical
DX: R79.1 Abnormal coagulation profile (principal)
CPT/HCPCS: 85610

== ENCOUNTER 2018-01-09 21:15 | Outpatient (CLI) | payer MEDICARE ==
--- NOTE | 2018-01-09 21:27 | CONSULTATION NOTE ---
Palliative Care Follow Up - Referral Referring Provider: Hattie Pandey PA-C Time of Visit: 01/09/2018. 11:55 - 13:10 Referral setting: Home (Seen in home setting due to taxing and considerable effort required to leave the home due to immobility and being bedbound secondary to alcoholic cardiomyopathy.) Referral Reason: Chronic pain - Information Sources Records reviewed: Previous records reviewed History/Review of Systems obtained from: Patient, Family, Caregiver, Nursing Exam limitations: Clinical condition (memory deficits) - History of Present Illness Update Brief HPI Update: -72 year old female discharged from hospice September 2017 after she had been in hospice for 5 weeks, admitted for complications of alcoholic cardiomyopathy, CHF , and E coli UTI. -Medical history: Alcoholic cardiomyopathy/CHF, COPD, atrial fibrillation on anticoagulation, peripheral neuropathy, HTN, PVD, RA, chronic pain, obesity, asthma, history of breast cancer with bilateral mastectomies (right in 1993, left in July 2016), severe postmastectomy lymphedema syndrome of RUE since 1993, history of E. coli UTI, now indwelling Adams catheter. -Patient is still being followed by HH RN. Last week her INR were at critical levels, RN was visiting her daily for about 4 days. -Patient's pain regimen was changed in mid-December from 12mcg fentanyl patch and oxycodone 5mg Q4hr prn to 24-25mcg fentanyl patch plus oxycodone 5mg BID as needed. -With the change in regimen, the plan was for patient to decrease use of oxycodone to 5mg twice daily max, however, she requested a refill of oxycodone sooner than anticipated, showing she was averaging around 3.5 tabs daily. Palliative care and PCP consulted and agreed that with fentanyl now at 24-25mcg , oxycodone would be limited to 60 pills per 30 days. -At the time we increased the fentanyl, the patient had still several 12mcg patches leftover plus a prescription she had not yet fulfilled, so the plan was to use two 12mcg patches until they ran out, and then switch to 25mcg patches. This was explained to the patient and the spouse by palliative care. -When the spouse picked up the new 25mcg fentanyl prescription, he mistakenly continued to apply two patches, despite the label's instructions to apply one patch. -This error was discovered today. -The patient has been overusing fentanyl for about 10 days, during which time she continued to ask for oxycodone several times daily. She was not oversedated , nor having any respiratory depression, though she does report some SOB, which she says is her asthma. She also notes constipation. -I discussed this at length with the patient, the caregiver, and the spouse when he came home. The spouse said, in his charming way, "I must have forgotten " in relation to switching from two 12mcg patches to one 25mcg patch. I also discussed with the patient that the oxycodone is for breakthrough and is limited to two per day. We discussed other how she can use other methods of pain control, including Tylenol and Tylenol PM at night, since she often uses oxycodone to help her sleep. She does admit, however, that trazodone at night is the most helpful, she would rather use the trazodone than oxycodone if she has to make a choice. -I discussed this with PCP Hattie Pandey, we agreed KATIE Pandey will write the orders for the opioids from now on. -Patient says it has been a week since she has transferred out of bed and into her recliner. She is supposed to do this every other day. The RN reports that she is doing it more than the patient reports, but patient has memory deficits. - RN notes that olanzapine has helped calm down the patient, suggests increasing the current dosage to 5mg BID. I discussed this with PCP Dannie, who agreed. I will write the order and fax it to pharmacy. Social History - Living Situation Living arrangement: At home Living Situation: With spouse/s.o. Support System: Renaldo, spouse, is sole caregiver, and is under pressure with the responsbility. He has his own health issues, for which he went to ED a few months back. They have Yolanda, the PATRICIA caregiver who comes T,W,Th, but has just been diagnosed with enlarged heart and this may affect her hours and ability to cover. They do need more caregiving support, and have agreed to this, but have not moved forward. It appears they may be doing so now and may engage a second caregiver. One son, does not appear to be closey involved in their lives or providing support. Medications/Allergies - Medications Home Medications: Ambulatory Orders Medication Instructions Recorded Confirmed Venlafaxine [Effexor] 75 mg PO DAILY 07/10/13 01/10/18 Furosemide [Lasix] 40 mg PO BID 12/28/15 01/10/18 Gabapentin 300 mg PO BID 12/28/15 01/10/18 Omeprazole [PriLOSEC] 20 mg PO DAILY PRN 12/28/15 01/10/18 Metoprolol Succinate 12.5 mg PO DAILY 07/27/16 01/10/18 Spironolactone 12.5 mg PO DAILY 07/27/16 01/10/18 Digoxin 125 mcg PO DAILY 09/08/17 01/10/18 Ipratropium/Albuterol Sulfate 1 unit INH BID PRN 09/08/17 01/10/18 [Iprat-Albut 0.5-3(2.5) mg/3 ml] Oxycodone HCl 5 mg PO BID PRN MDD use for 09/08/17 01/10/18 breakthrough pain only Docusate Sodium 100 mg PO DAILY PRN 10/13/17 01/10/18 Nystatin 1 applic TP BID 10/13/17 01/10/18 Oxybutynin Chloride 5 mg PO BID PRN MDD bladder spasms 10/13/17 01/10/18 Warfarin Sodium 4 mg PO 10/13/17 traZODone [Desyrel] 25 - 50 mg PO .QHS PRN 11/09/17 01/10/18 OLANZapine [Zyprexa] 5 mg PO BID 11/15/17 01/10/18 Senna Tea 1 ea DAILY PRN 12/14/17 Senna [Senokot] 1 - 2 tab PO DAILY PRN 01/10/18 01/10/18 fentaNYL [Fentanyl 25mcg patch] 25 mcg TD Q72H 01/10/18 01/10/18 - Allergies Allergies/Adverse Reactions: Allergies Allergy/AdvReac Type Severity Reaction Status Date / Time penicillin G Allergy Intermediate Unknown Verified 04/21/17 14:41 Sulfa (Sulfonamide Allergy Intermediate Rash Verified 04/21/17 14:41 Antibiotics) dyazides Allergy Intermediate Unknown Uncoded 04/21/17 14:41 Review of Systems - Constitutional Constitutional: reports: Weakness, Weight gain (L bicep 39.5cm on 12/13/17.). denies: Poor appetite - Ears, Nose & Throat Ears, Nose & Throat: reports: Hearing loss - Cardiovascular Cardiovascular: reports: Edema (chronic lymphedema RUE), Decr. exercise tolerance. denies: Chest pain - Gastrointestinal Gastrointestinal: reports: Constipation (worsened), Good appetite - Genitourinary Genitourinary: reports: Other (Adams catheter) - Musculoskeletal Musculoskeletal: reports: Limited range of motion, Joint pain (All joints -- back, feet, but R knee is the worst), Transfer issues (bed bound; Nancy lift) - Neurological Neurological: reports: Memory problems - Psychiatric Psychiatric: reports: Behavior disturbances (Agitation, but improved with olanzapine) Physical Exam - Vital Signs Temperature: 96.7 F Pulse Rate: 66 O2 Saturation: 96 (room air) Blood Pressure: 143/71 - Physical Exam General Appearance: positive: No acute distress, Alert Eyes Bilateral: positive: EOMI, No lid inflammation, Conjunctivae nml, No scleral icterus ENT: positive: No signs of dehydration Neck: positive: No JVD, Trachea midline Cardiovascular: positive: Regular rate & rhythm, No gallop, Systolic murmur (2/6 ) Respiratory: positive: Chest non-tender, No respiratory distress, Breath sounds nml. negative: Wheezes, Rales Skin: positive: No symptoms Extremities: positive: No pedal edema, Other (Contractures bilateral toes) Neurologic/Psychiatric: positive: Oriented x3, Mood/affect nml Palliative Care - POLST Patient has POLST: Yes POLST Status: DNR, Comfort Measures Pain: Pain unchanged, Comment (Accidental over-dosing of fentanyl, no symptoms, but still complains of breakthrough pain, requesting oxycodone) Sleep: Sleep improved (with trazodone), Other (Has woken up in the night complaining of pain, persists until spouse gives her oxycodone) Performance Status: Bedbound, she reports not sitting up in recliner for the past week, HH RN says she does. Goal is every other day. Patient still speaks of goal of being able to walk. - Palliative Care Discussion: The main subject today is pain medications, proper dosing, and learning to budget the breakthrough pain meds over the course of the month. Patient voiced understanding that she will need to limit the oxycodone to 2 per day, and use other means: visualization, getting out of bed more, Tylenol PM at night. She was quite alarmed to learn of the fentanyl administration error. HH RN reports that the patient pays attention to the medications and usually questions her , with a certain level of mistrust and skepticism, so it's quite likely she will be double checking from now on. HH RN will continue to arrange meds in the mediset. She is visiting 1x weekly, this will eventually decrease to 1x/month. Impression and Recommendations - Palliative Care Impression: 72-year old female previously on hospice for 5 weeks with alcoholic cardiomyopathy. She is bedbound and totally dependent for transfers and ADLs. She has chronic pain issues. Her is sole caregiver and had a fentanyl administration error by spouse for the past week. The error was detected, patient and spouse education provided regarding opioid, new plan put in place to cover the 3 extra patches needed this month to make up for the shortfall. Also will increase olanzapine dosing for agitation behaviors. Recommendations/Counseling Done: Chronic pain: Fentanyl had increased last month from 12mcg to 24mcg, and they were to use two 12mcg patches to use up the remainder of their patches, and then switch to 25mcg patches. Spouse erroneously applied two 25mcg patches for 4 cycles. The error was caught yesterday, and one 25 mcg patch removed. Two patches remain, which will be used for the changes of 01/11 and 01/20. Hattie Pandey will write an extra script for four (4) 25mcg patches on 01/17. Then the regular script of 10 patches for 01/29. Pain plan also calls for oxycodone 5mg BID PRN, limited to 60 pills each 30 days. This was discussed at length with both patient and spouse, that she will have to ration her oxycodone usage throughout the month. We discussed other methods of pain control: visualization, regularly transferring to recliner, using Tylenol, trying Tylenol PM at night. Patient verbalized understanding. Discussed this with Home Health RN, she will provide teaching to spouse and patient to both check the patch at each change, and for spouse to read labels with his magnifying glass at each change. She will have patient sign an opioid usage agreement. She will reinforce teaching and monitor medications at each visit. The 4 extra patches will not be covered by insurance, will let patient and spouse know. Follow up with patient by phone, speak with caregiver and have her write it down , speak with spouse. HH RN will also follow up and discuss with them at her visit at end of week. Also told patient and caregiver that oxycodone is not automatically refilled since it's a PRN medications-- they must inform PCP clinic in ample time before they run out of pills. Constipation: Increased since fentanyl dose increase. Provided education on docusate sodium 100mg daily as needed, and Senna 12 tabs daily as needed. SOA, intermittent: Patient has Advair and Ventolin, was told she doesn't need them and has not been using them. Anxiety: Improved with olanzapine, still has some agitation as reported by HH RN. Increase olanzapine to 5mg PO BID. It was at 2.5mg a.m and 5mg p.m. Faxed new order to [facility] in [place], noting that no tablets currently required, patient has nearly a full bottle. h/o breast cancer: Working with Analia in [facility] to check with Dr Holland about restarting anastrozole. Follow up by phone: next week, when the 4 replacement fentanyl patches are due on 01/17. Time Spent: 75 minutes were spent with more than 50% of the time spent on counseling, education, and coordination of care.
== END 2018-01-09 21:16 | disposition home or self-care (01) ==
LOC: PC 21:15
PROVIDERS: ATTEND Nurse Practitioner
DX: Z51.5 Encounter for palliative care (principal); G89.29 Other chronic pain; K59.03 Drug induced constipation; T40.2X5A Adverse effect of other opioids, initial encounter; Z79.891 Long term (current) use of opiate analgesic; I42.6 Alcoholic cardiomyopathy; Z74.01 Bed confinement status; J44.9 Chronic obstructive pulmonary disease, unspecified; Z96.0 Presence of urogenital implants; Z79.01 Long term (current) use of anticoagulants; R60.0 Localized edema; T40.4X1A Poisoning by other synthetic narcotics, accidental (unintentional), initial encounter; Y92.009 Unspecified place in unspecified non-institutional (private) residence as the place of occurrence of the external cause; Z66 Do not resuscitate
CPT/HCPCS: 99350

== ENCOUNTER 2018-01-24 17:48 | Outpatient (CLI) | payer MEDICARE ==
--- NOTE | 2018-01-24 20:15 | CONSULTATION NOTE ---
Palliative Care Follow Up - Referral Referring Provider: Hattie Pandey PA-C Time of Visit: 01/24/2018. 12:45 - 13:30 Referral setting: Home (Seen in home setting due to taxing and considerable effort required to leave the home due to immobility and being bedbound secondary to alcoholic cardiomyopathy.) - Information Sources Records reviewed: Previous records reviewed History/Review of Systems obtained from: Patient, Family, Caregiver Exam limitations: Clinical condition (memory deficits) - History of Present Illness Update Brief HPI Update: -72 year old female discharged from hospice September 2017 after she had been in hospice for 5 weeks, admitted for complications of alcoholic cardiomyopathy, CHF , and E coli UTI. -Medical history: Alcoholic cardiomyopathy/CHF, COPD, atrial fibrillation on anticoagulation, peripheral neuropathy, HTN, PVD, RA, chronic pain, obesity, asthma, history of breast cancer with bilateral mastectomies (right in 1993, left in July 2016), severe postmastectomy lymphedema syndrome of RUE since 1993, history of E. coli UTI, now indwelling Adams catheter. -Earlier in January the patient's spouse had been accidentally giving her twice the dosage of fentanyl patches (50mcg instead of 25mcg). The error was corrected , and the patient has been on the 25mcg patches for about 2 weeks. She has also been limited to oxycodone 5mg twice daily as needed for breakthrough pain. -Patient is still being followed by HH RN and the RN noted yesterday that patient is very tense with any touch or anticipated movement of the right knee. During today's assessment she was not complaining of pain or tenseness. -We discussed using Tylenol as well as other methods of pain control: redirection, visualization, music, singing. -Reviewed with spouse that he will need to contact PCP clinic this week for refill of oxycodone, and also plan several days ahead of time for the PRN oxycodone, as well as contacting the clinic sufficient days ahead of time when fentanyl patches are due to be refilled. -Patient has been getting out of bed and into recliner 2x/week, via Nancy lift. -Patient reports loose stools, so she has been adjusting her bowel medications. We discussed using Senna daily, but OK to hold for loose stools. Provided education on opioid-induced constipation. -I spoke on 01/[address] Holalnd regarding patient's inquiry about restarting anastrozole, which she was on prior to being admitted to Hospice. Dr Holland's answer was no, because being bedbound, the patient would not be in good enough condition to be candidate for that therapy. Also it would require being regularly monitored at clinic visits, which the patient would be incapable of doing since she is bedbound. I discussed this with the patient, and she verbalized understanding. Social History - Living Situation Living arrangement: At home Living Situation: With spouse/s.o. Support System: Renaldo, spouse, is the main caregiver. He has heart problems and had an ED visit a few months ago. They now have two PATRICIA caregivers: Yolanda who comes Monday, Monday, Monday, and Monday, and a new caregiver, Siomara, who comes and Monday. Medications/Allergies - Medications Home Medications: Ambulatory Orders Medication Instructions Recorded Confirmed Venlafaxine [Effexor] 75 mg PO DAILY 07/10/13 01/10/18 Furosemide [Lasix] 40 mg PO BID 12/28/15 01/10/18 Gabapentin 300 mg PO BID 12/28/15 01/10/18 Omeprazole [PriLOSEC] 20 mg PO DAILY PRN 12/28/15 01/10/18 Metoprolol Succinate 12.5 mg PO DAILY 07/27/16 01/10/18 Spironolactone 12.5 mg PO DAILY 07/27/16 01/10/18 Digoxin 125 mcg PO DAILY 09/08/17 01/10/18 Ipratropium/Albuterol Sulfate 1 unit INH BID PRN 09/08/17 01/10/18 [Iprat-Albut 0.5-3(2.5) mg/3 ml] Oxycodone HCl 5 mg PO BID PRN MDD use for 09/08/17 01/10/18 breakthrough pain only Docusate Sodium 100 mg PO DAILY PRN 10/13/17 01/10/18 Nystatin 1 applic TP BID 10/13/17 01/10/18 Oxybutynin Chloride 5 mg PO BID PRN MDD bladder spasms 10/13/17 01/10/18 Warfarin Sodium 4 mg PO 10/13/17 traZODone [Desyrel] 25 - 50 mg PO .QHS PRN 11/09/17 01/10/18 OLANZapine [Zyprexa] 5 mg PO BID 11/15/17 01/10/18 Senna Tea 1 ea DAILY PRN 12/14/17 Senna [Senokot] 1 - 2 tab PO DAILY PRN 01/10/18 01/10/18 fentaNYL [Fentanyl 25mcg patch] 25 mcg TD Q72H 01/10/18 01/10/18 - Allergies Allergies/Adverse Reactions: Allergies Allergy/AdvReac Type Severity Reaction Status Date / Time penicillin G Allergy Intermediate Unknown Verified 04/21/17 14:41 Sulfa (Sulfonamide Allergy Intermediate Rash Verified 04/21/17 14:41 Antibiotics) dyazides Allergy Intermediate Unknown Uncoded 04/21/17 14:41 Review of Systems - Constitutional Constitutional: reports: Weakness, Weight gain (L bicep 39.5cm on 12/13/17). denies: Poor appetite - Ears, Nose & Throat Ears, Nose & Throat: reports: Hearing loss - Cardiovascular Cardiovascular: reports: Edema (chronic lymphedema RUE) - Respiratory Respiratory: reports: SOB at rest - Gastrointestinal Gastrointestinal: reports: Constipation (episodic), Diarrhea (loose stools) - Genitourinary Genitourinary: reports: Other (Adams catheter, monitored/maintained by Home Health RN) - Musculoskeletal Musculoskeletal: reports: Stiffness, Limited range of motion, Muscle weakness, Joint pain (especially R knee. Also in hands), Assistive devices (wheelchair), Transfer issues (Nancy) - Neurological Neurological: reports: General weakness, Memory problems - Psychiatric Psychiatric: reports: Anxiety, Aggitation (related to pain) - Hematologic/Lymphatic Hematologic/Lymphatic: reports: Lymphadenopathy, Other (INR subtherapeutic) Physical Exam - Vital Signs Temperature: 96.7 F Pulse Rate: 73 O2 Saturation: 95 (room air) Blood Pressure: 122/63 - Physical Exam General Appearance: positive: No acute distress, Alert Eyes Bilateral: positive: No lid inflammation, Conjunctivae nml, No scleral icterus ENT: positive: No signs of dehydration Neck: positive: Trachea midline Cardiovascular: positive: Regular rate & rhythm, No murmur Respiratory: positive: Diminished in bases (right side) Abdomen: positive: Non-tender, Soft, Abnml bowel sounds (hypo), Obese Extremities: positive: Pedal edema (3+) Neurologic/Psychiatric: positive: Oriented x3, Mood/affect nml Palliative Care - POLST Patient has POLST: Yes POLST Status: DNR, Comfort Measures Pain: Pain unchanged, Location (R knee; hands) Tiredness/Fatigue: None Anxiety: Mild (1-3) Anorexia: None Constipation: Opoid induced, Intermittent constipation Impression and Recommendations - Palliative Care Impression: 72-year old female previously on hospice for 5 weeks with alcoholic cardiomyopathy, now bedbound. She has chronic joint pain and is on fentanyl patch routine and oxycodone 5mg BID as needed. Provided education and encouragement around pain management. Anxiety improved with increase of olanzapine. Home Health will continue with catheter care, INR and education, and palliative care will continue with oversight and supportive care. Recommendations/Counseling Done: Chronic joint pain: Continue Fentanyl 25mcg routine Q72 hours, and oxycodone 5mg BID PRN. PCP clinic will write the scripts for the scheduled meds. Reviewed with spouse and patient; recommended spouse call PCP this week for refill of oxycodone, and also fentanyl, to ensure it's done well in advance. Constipation: Patient continues to experiment with dosing of bowel meds since she has loose stools. Recommended senna daily; she has been using 1/2 tab, and docusate sodium as needed. Anxiety: Continue olanzapine 5mg PO bid. Still has episodic anxiety around pain in knee and when anticipating movement h/o breast cancer: Spoke with Dr Holland about restarting anastrozole. Being bedbound means the patient is not an appropriate candidate for the therapy. Also if she were on anastrozole she would need to come into the [facility] clinic regularly for follow up visits, and she cannot since she is housebound and bedbound. Explained this to the patient and her spouse, and she verbalized understanding. Follow up visit: MonFeb 21 11-11:30 Time Spent: 45 minutes were spent with more than 50% of the time spent on counseling, education, and coordination of care.
== END 2018-01-24 17:49 | disposition home or self-care (01) ==
LOC: PC 17:48
PROVIDERS: ATTEND Nurse Practitioner
DX: Z51.5 Encounter for palliative care (principal); G89.29 Other chronic pain; M25.561 Pain in right knee; K59.03 Drug induced constipation; T40.2X5D Adverse effect of other opioids, subsequent encounter; Z74.01 Bed confinement status; F41.9 Anxiety disorder, unspecified; I42.6 Alcoholic cardiomyopathy; Z79.01 Long term (current) use of anticoagulants; M62.81 Muscle weakness (generalized); Z85.3 Personal history of malignant neoplasm of breast; Z66 Do not resuscitate
CPT/HCPCS: 99349

== ENCOUNTER 2018-02-06 14:49 | Outpatient (CLI) | payer MEDICARE | END 2018-02-06 14:50 | disposition critical access hospital (66) | LOC: EMS 14:49 | PROVIDERS: ATTEND Surgery | DX: L03.113 Cellulitis of right upper limb (principal); Z74.01 Bed confinement status ==

== ENCOUNTER 2018-02-06 15:32 | Inpatient (IN) | payer MEDICARE ==
[2018-02-06] MEDS ORDERED: VANCOMYCIN INJ 2 GM in SODIUM CHLORIDE 0.9% 500 ML IV STA (16:27)
[2018-02-06] MEDS ORDERED: cefTRIAXone 1 GM VIAL IVP STA (16:27)
[2018-02-06] MEDS ORDERED: SODIUM CHLORIDE 0.9% 1,000 ML IV ONE (16:27)
--- NOTE | 2018-02-06 16:30 | ED Physician Documentation ---
History of Present Illness - Stated complaint Stated Complaint: CELLULITIS - Chief complaint Chief Complaint: General - History obtained from History obtained from: Patient, EMS, Caregiver - History of Present Illness Timing: How many days ago (5) Pain level max: 4 Pain level now: 3 Improved by: nothing Worsened by: nothing - Additonal information Additional information: Patient is a 72-year-old female with multiple medical problems who presents to the emergency department with redness and swelling to the right arm, right buttock and right leg for the past 5 days. Subjective fevers at home. Has had chills as well. Decreased appetite. States similar to past episodes of cellulitis. She has home health at home who called the ambulance today. Review of Systems Ten Systems: 10 systems reviewed and negative Constitutional: denies: Fever, Chills Ears: denies: Ear pain Nose: denies: Rhinorrhea / runny nose, Congestion Throat: denies: Sore throat Respiratory: denies: Cough GI: denies: Nausea, Vomiting, Diarrhea Musculoskeletal: denies: Neck pain, Back pain Neurologic: denies: Headache PD PAST MEDICAL HISTORY - Past Medical History Cardiovascular: Congestive heart failure, Hypertension, High cholesterol, Peripheral Vascular Disease, Atrial fibrillation, Murmur Respiratory: Asthma, COPD, Pneumonia, Shortness of breath, Sleep apnea, CPAP use Endocrine/Autoimmune: None GI: GERD, Ulcers, Chronic diarrhea, Chronic constipation POND WORKER: None, Breast cancer : None, Retention, Incontinence, Indwelling catheter HEENT: Other Psych: Depression, Claustrophobia Musculoskeletal: Osteoarthritis, Rheumatoid arthritis, Chronic back pain Derm: Other drug resistant infections - Past Surgical History Past Surgical History: Yes General: Colonoscopy Ortho: Other /POND WORKER: Hysterectomy, Mastectomy HEENT: Cataracts, Tonsil/Adenoidectomy - Present Medications Home Medications: Ambulatory Orders Medication Instructions Recorded Confirmed Venlafaxine [Effexor] 75 mg PO DAILY 07/10/13 01/10/18 Furosemide [Lasix] 40 mg PO BID 12/28/15 01/10/18 Gabapentin 300 mg PO BID 12/28/15 01/10/18 Omeprazole [PriLOSEC] 20 mg PO DAILY PRN 12/28/15 01/10/18 Metoprolol Succinate 12.5 mg PO DAILY 07/27/16 01/10/18 Spironolactone 12.5 mg PO DAILY 07/27/16 01/10/18 Digoxin 125 mcg PO DAILY 09/08/17 01/10/18 Ipratropium/Albuterol Sulfate 1 unit INH BID PRN 09/08/17 01/10/18 [Iprat-Albut 0.5-3(2.5) mg/3 ml] Oxycodone HCl 5 mg PO BID PRN MDD use for 09/08/17 01/10/18 breakthrough pain only Docusate Sodium 100 mg PO DAILY PRN 10/13/17 01/10/18 Nystatin 1 applic TP BID 10/13/17 01/10/18 Oxybutynin Chloride 5 mg PO BID PRN MDD bladder spasms 10/13/17 01/10/18 Warfarin Sodium 4 mg PO 10/13/17 traZODone [Desyrel] 25 - 50 mg PO .QHS PRN 11/09/17 01/10/18 OLANZapine [Zyprexa] 5 mg PO BID 11/15/17 01/10/18 Senna Tea 1 ea DAILY PRN 12/14/17 Senna [Senokot] 1 - 2 tab PO DAILY PRN 01/10/18 01/10/18 fentaNYL [Fentanyl 25mcg patch] 25 mcg TD Q72H 01/10/18 01/10/18 - Allergies Allergies/Adverse Reactions: Allergies Allergy/AdvReac Type Severity Reaction Status Date / Time penicillin G Allergy Intermediate Unknown Verified 02/06/18 15:39 Sulfa (Sulfonamide Allergy Intermediate Rash Verified 02/06/18 15:39 Antibiotics) dyazides Allergy Intermediate Unknown Uncoded 02/06/18 15:39 - Social History Does the pt smoke?: No Smoking Status: Never smoker Does the pt drink ETOH?: No Does the pt have substance abuse?: No - Immunizations Immunizations are current?: Yes - POLST Patient has POLST: Yes PD ED PE NORMAL - Vitals Vital signs reviewed: Yes - General General: Alert and oriented X 3, No acute distress, Other (obese female) - HEENT HEENT: Moist mucous membranes - Neck Neck: Supple, no meningeal sign - Cardiac Cardiac: RRR - Respiratory Respiratory: No respiratory distress, Clear bilaterally - Abdomen Abdomen: Soft, Non tender, Non distended - Derm Derm: Warm and dry - Extremities Extremities: Other (R arm - erythema, swelling, warmth, from the elbow to the hand. Also erythema, swelling and warmth over the R posterior leg, buttocks and lower back. diffuse skin breakdown over the back and buttocks. ) - Neuro Neuro: Alert and oriented X 3 - Psych Psych: Normal mood, Normal affect Results - Vitals Vitals: Vital Signs - 24 hr 02/06/18 02/06/18 02/06/18 15:34 17:35 18:51 Temperature 37.0 C Heart Rate 73 74 Respiratory 16 16 Rate Blood Pressure 123/39 L 142/62 H 110/48 L O2 Saturation 95 95 02/06/18 19:30 Temperature Heart Rate 74 Respiratory 17 Rate Blood Pressure 131/59 H O2 Saturation 97 Oxygen O2 Source [With Activity] Room air O2 Source [Without Activity] Room air O2 Source Room air - Labs Labs: Laboratory Tests 02/06/18 02/06/18 02/06/18 17:18 17:18 17:20 WBC 16.7 H RBC 3.84 L Hgb 11.7 L Hct 35.0 L MCV 91.1 MCH 30.6 MCHC 33.5 RDW 13.6 Plt Count 242 MPV 7.5 L Neut # (Auto) 14.3 H Lymph # (Auto) 1.4 L Hitchcock # (Auto) 0.7 Eos # (Auto) 0.3 Baso # (Auto) 0.1 Absolute Nucleated RBC 0.00 Nucleated RBC % 0.0 PT 17.2 H INR 1.5 H Sodium Potassium Chloride Carbon Dioxide Anion Gap BUN Creatinine Estimated GFR (MDRD) Glucose Lactic Acid Calcium Total Bilirubin AST ALT Alkaline Phosphatase Total Protein Albumin Globulin Albumin/Globulin Ratio Lipase Urine Color YELLOW Urine Clarity HAZY Urine pH 6.0 Ur Specific [place] <=1.005 Urine Protein NEGATIVE Urine Glucose (UA) NEGATIVE Urine Ketones NEGATIVE Urine Occult Blood MODERATE H Urine Nitrite POSITIVE H Urine Bilirubin NEGATIVE Urine Urobilinogen 0.2 (NORMAL) Ur Leukocyte Esterase LARGE H Urine RBC 0-5 Urine WBC >25 H Urine WBC Clumps PRESENT Ur Squamous Epith Cells NONE SEEN Urine Bacteria Moderate H Ur Microscopic Review INDICATED Urine Culture Comments INDICATED 02/06/18 02/06/18 18:00 18:00 WBC RBC Hgb Hct MCV MCH MCHC RDW Plt Count MPV Neut # (Auto) Lymph # (Auto) Hitchcock # (Auto) Eos # (Auto) Baso # (Auto) Absolute Nucleated RBC Nucleated RBC % PT INR Sodium 131 L Potassium 3.8 Chloride 94 L Carbon Dioxide 26 Anion Gap 11.0 BUN 22 H Creatinine 0.7 Estimated GFR (MDRD) 82 L Glucose 99 Lactic Acid 1.5 Calcium 8.5 Total Bilirubin 0.4 AST 33 ALT 26 Alkaline Phosphatase 124 H Total Protein 6.2 L Albumin 2.5 L Globulin 3.7 Albumin/Globulin Ratio 0.7 L Lipase 21 L Urine Color Urine Clarity Urine pH Ur Specific [place] Urine Protein Urine Glucose (UA) Urine Ketones Urine Occult Blood Urine Nitrite Urine Bilirubin Urine Urobilinogen Ur Leukocyte Esterase Urine RBC Urine WBC Urine WBC Clumps Ur Squamous Epith Cells Urine Bacteria Ur Microscopic Review Urine Culture Comments PD MEDICAL DECISION MAKING - ED course Complexity details: reviewed old records, reviewed results, re-evaluated patient , considered differential, d/w patient, d/w payroll consultant ED course: Patient is a 72-year-old female with diffuse cellulitis over the right upper extremity and right lower extremity. Also has skin breakdown along her buttocks and lower back. Will place on antibiotics and admit for IV antibiotics. Does have a leukocytosis. Discussed the case with hospitalist, Dr. Suresh who accepts. She also appears to have a catheter associated UTI This document was made in part using voice recognition software. While efforts are made to proofread this document, sound alike and grammatical errors may occur. - Sepsis Event Vital Signs: Vital Signs - 24 hr 02/06/18 02/06/18 02/06/18 15:34 17:35 18:51 Temperature 37.0 C Heart Rate 73 74 Respiratory 16 16 Rate Blood Pressure 123/39 L 142/62 H 110/48 L O2 Saturation 95 95 02/06/18 19:30 Temperature Heart Rate 74 Respiratory 17 Rate Blood Pressure 131/59 H O2 Saturation 97 Oxygen O2 Source [With Activity] Room air O2 Source [Without Activity] Room air O2 Source Room air Departure - Departure Disposition: 66 [facility] DC/Xfer Clinical Impression: Skin breakdown Cellulitis Qualifiers: Site of cellulitis: unspecified site Qualified Code(s): L03.90 - Cellulitis, unspecified UTI (urinary tract infection) Qualifiers: Urinary tract infection type: catheter-associated UTI Indwelling urinary catheter type: indwelling urethral catheter Encounter type: initial encounter Qualified Code(s): T83.511A - Infection and inflammatory reaction due to indwelling urethral catheter, initial encounter; N39.0 - Urinary tract infection , site not specified; N39.0 - Urinary tract infection, site not specified Condition: Stable Discharge Date/Time: 02/06/18 21:20
[2018-02-06 17:31] LABS: BASOPHILS # (AUTO) 0.1 10^3/uL (0.0-0.1); BASOPHILS % (AUTO) 0.5 %; EOSINOPHILS # (AUTO) 0.3 10^3/uL (0.0-0.7); EOSINOPHILS % (AUTO) 1.7 %; HGB - HEMOGLOBIN 11.7 g/dL (12.0-16.0); LYMPHOCYTES # (AUTO) 1.4 10^3/uL (1.5-3.5); LYMPHOCYTES % (AUTO) 8.1 %; MEAN CORPUSCULAR HEMOGLOBIN 30.6 pg (27.0-31.0); MEAN CORPUSCULAR HGB CONC 33.5 g/dL (32.0-36.0); MEAN CORPUSCULAR VOLUME 91.1 fL (81.0-99.0); MEAN PLATELET VOLUME 7.5 fL (7.9-10.8); MONOCYTES # (AUTO) 0.7 10^3/uL (0.0-1.0); MONOCYTES % (AUTO) 4.1 %; NEUTROPHILS # (AUTO) 14.3 10^3/uL (1.5-6.6); NEUTROPHILS % (AUTO) 85.6 %; PLT - PLATELET COUNT 242 10^3/uL (130-450); RED BLOOD COUNT 3.84 10^6/uL (4.20-5.40); RED CELL DISTRIBUTION WIDTH 13.6 % (12.0-15.0); WHITE BLOOD COUNT 16.7 x10^3/uL (4.8-10.8)
[2018-02-06 17:40] LABS: BILIRUBIN,URINE NEGATIVE (NEGATIVE); GLUCOSE, URINE (UA) NEGATIVE (NEGATIVE); KETONES,URINE (UA) NEGATIVE (NEGATIVE); LEUKOCYTE ESTERASE, URINE LARGE (NEGATIVE); NITRITE,URINE POSITIVE (NEGATIVE); OCCULT BLOOD,URINE MODERATE (NEGATIVE); PROTEIN,URINE NEGATIVE (NEGATIVE); UROBILINOGEN,URINE 0.2 (NORMAL) E.U./dL (NORMAL)
[2018-02-06 17:45] LABS: CLARITY,URINE HAZY (CLEAR)
[2018-02-06 17:54] LABS: RBC,URINE 0-5 /HPF (0-5)
[2018-02-06 17:55] LABS: BACTERIA,URINE Moderate /HPF (None Seen); SQUAMOUS EPITHELIAL CELL,UR NONE SEEN (<= Few); WBC CLUMPS,URINE PRESENT
[2018-02-06 18:21] LABS: ALBUMIN 2.5 g/dL (3.2-5.5); ALBUMIN/GLOBULIN RATIO 0.7 (1.0-2.2); BILIRUBIN,TOTAL 0.4 mg/dL (0.2-1.0); CALCIUM 8.5 mg/dL (8.5-10.3); CREATININE 0.7 mg/dL (0.4-1.0); TOTAL PROTEIN 6.2 g/dL (6.7-8.2)
[2018-02-06] MEDS ORDERED: ACETAMINOPHEN 325 MG TABLET PO STA (18:43)
[2018-02-06 19:13] LABS: INR 1.5 (0.8-1.2); PT - PROTHROMBIN TIME 17.2 secs (9.9-12.6)
[2018-02-06] MEDS ORDERED: oxyCODONE 5 MG TABLET PO STA ×2 (19:30→19:41)
[2018-02-06] MEDS ORDERED: OXYBUTYNIN 5MG TABLET PO PRN (20:00)
[2018-02-06] MEDS ORDERED: PROCHLORPERAZINE 10 MG/2 ML VIAL IVP PRN (20:14)
[2018-02-06] MEDS ORDERED: PROMETHAZINE 25 MG/1 ML VIAL IM PRN (20:14)
[2018-02-06] MEDS ORDERED: ONDANSETRON 4 MG/2 ML VIAL IVP PRN (20:14)
[2018-02-06] MEDS ORDERED: SODIUM CHLORIDE FLUSH 0.9% 10 ML SYRINGE IVP PRN (20:14)
[2018-02-06] MEDS ORDERED: TEMAZEPAM 15 MG CAPSULE PO PRN (20:14)
[2018-02-06] MEDS ORDERED: VANCOMYCIN PER PHARMACY 0.1 GM in SODIUM CHLORIDE 0.9% 250 ML IV SCH (21:00)
[2018-02-06] MEDS ORDERED: NON FORMULARY MED (Nystatin [Nystatin] 1 APPLIC) TP SCH (21:00)
[2018-02-06] MEDS ORDERED: SODIUM CHLORIDE 0.9% 1,000 ML IV SCH (21:00)
[2018-02-06] MEDS ORDERED: MIN OIL/DIMETHICON/COCONUT OIL 92 GM TUBE TOP PRN (21:58)
--- NOTE | 2018-02-06 22:24 | HISTORY & PHYSICAL EXAMINATION ---
Chief Complaint - Chief Complaint Chief Complaint: Redness, swelling and pain of right arm. History of Present Illness - Admitted From Admitted From:: Emergency Deparment - History Obtained From Records Reviewed: Yes History obtained from: Patient Exam Limitations: None - History of Present Illness HPI Comment/Other: Patient is a 72-year-old female with a past medical history significant for alcoholic cardiomyopathy, obesity, hypertension, chronic venous stasis, asthma, COPD, osteoarthritis, rheumatoid arthritis, chronic pain secondary to arthritis, peripheral vascular disease, hyperlipidemia, history of breast cancer, obstructive sleep apnea not on CPAP, depression and severe debility currently bedbound previously on hospice but currently on palliative care who presents to the emergency department with right upper extremity swelling redness and pain. The patient states that she has had more than 20 cases of cellulitis in her lifetime and states that this most recent episode started about 5 days ago. She states that initially started with swelling and redness of her right hand and then progressed with increasing swelling turning into pain throughout her right arm. She states that it then spread into her back, buttocks and bilateral legs. She states that she felt warm and broke out into sweats several times over the last day. She states that she never checked her temperature at home but assumes that she had a fever. She has not taken any antibiotics over the last 5 days. She states that today she had a visiting home health nurse who assessed her redness and swelling and sent her to the emergency department. She denies any chills. The patient states that she has had a indwelling Adams catheter for the last 7 or 8 months as she was having a difficult time eating up to go to the bathroom and her was having a difficult time helping her. She does have history of urinary tract infections but denies having had any urinary symptoms over the last couple days. She denies any abdominal pain. She also denies any nausea or vomiting. She denies any flank pain. Patient denies any headaches, blurred vision, runny nose, sore throat, nasal congestion, difficulty swallowing, chest pain, shortness of air, orthopnea, PND , diarrhea, neck stiffness, hair loss, changes in her appetite, recent unintentional weight loss, night sweats or any focal neurologic deficits. On presentation to the emergency department the patient had a low-grade temperature of 37.6 but was otherwise hemodynamically stable. The patient's lab work revealed a leukocytosis of 16.7 with a normal lactic acid. The patient did have some mild hyponatremia with a sodium of 131. The patient's urine analysis revealed positive nitrites, large leukocyte esterase and greater than 25 WBCs with moderate bacteria. The patient did have significant cellulitis on her right upper extremity as well as on her right and left lower back, buttocks and on bilateral legs. With this extensive cellulitis and leukocytosis in the setting of a urinary tract infection with the patient's multiple comorbidities it was felt that the patient would be best off receiving IV antibiotics and admitted to the hospital. The patient was admitted to the [facility] for further treatment. History - Past Medical History Cardiovascular: reports: Congestive heart failure, Hypertension, High cholesterol, Peripheral Vascular Disease, Atrial fibrillation, Murmur Respiratory: reports: Asthma, COPD, Pneumonia, Shortness of breath, Sleep apnea , CPAP use Endocrine/Autoimmune: reports: None GI: reports: GERD, Ulcers, Chronic diarrhea, Chronic constipation BEHAVIORAL HEALTH CASE MANAGER: reports: None, Breast cancer : reports: None, Retention, Incontinence, Indwelling catheter HEENT: reports: Other Psych: reports: Depression, Claustrophobia Musculoskeletal: reports: Osteoarthritis, Rheumatoid arthritis, Chronic back pain Derm: reports: Other drug resistant infections MRSA Hx?: Yes - Past Surgical History General: reports: Colonoscopy Ortho: reports: Other /BEHAVIORAL HEALTH CASE MANAGER: reports: Hysterectomy, Mastectomy HEENT: reports: Cataracts, Tonsil/Adenoidectomy - Family & Social History Family History: Mother: , Asthma, CAD, Hypertension, Father: , Cancer (Prostate Ca) Living arrangement: At home Living Situation: With spouse/s.o. Social History Notes: The patient lives in [place], [place]. She lives there with her . Her and her have been for 51 years. They had one adopted son whom now lives in [place]. She grew up in [place] and lives near [place] most of her life until moving up. [place] her . The patient states that she has never been a smoker. She states that she quit drinking in 2013 but did have times where she drank quite heavily in the past. She denies any illicit drug use. - Substance History Use: Uses substance without health or social issues: NONE (Never smoker.) - POLST Patient has POLST: Yes POLST Status: DNR Meds/Allgy - Home Medications Home Medications: Ambulatory Orders Medication Instructions Recorded Confirmed Venlafaxine [Effexor] 75 mg PO DAILY 07/10/13 01/10/18 Furosemide [Lasix] 40 mg PO BID 12/28/15 01/10/18 Gabapentin 300 mg PO BID 12/28/15 01/10/18 Omeprazole [PriLOSEC] 20 mg PO DAILY PRN 12/28/15 01/10/18 Metoprolol Succinate 12.5 mg PO DAILY 07/27/16 01/10/18 Spironolactone 12.5 mg PO DAILY 07/27/16 01/10/18 Digoxin 125 mcg PO DAILY 09/08/17 01/10/18 Ipratropium/Albuterol Sulfate 1 unit INH BID PRN 09/08/17 01/10/18 [Iprat-Albut 0.5-3(2.5) mg/3 ml] Oxycodone HCl 5 mg PO BID PRN MDD use for 09/08/17 01/10/18 breakthrough pain only Docusate Sodium 100 mg PO DAILY PRN 10/13/17 01/10/18 Nystatin 1 applic TP BID 10/13/17 01/10/18 Oxybutynin Chloride 5 mg PO BID PRN MDD bladder spasms 10/13/17 01/10/18 Warfarin Sodium 4 mg PO 10/13/17 traZODone [Desyrel] 25 - 50 mg PO .QHS PRN 11/09/17 01/10/18 OLANZapine [Zyprexa] 5 mg PO BID 11/15/17 01/10/18 Senna Tea 1 ea DAILY PRN 12/14/17 Senna [Senokot] 1 - 2 tab PO DAILY PRN 01/10/18 01/10/18 fentaNYL [Fentanyl 25mcg patch] 25 mcg TD Q72H 01/10/18 01/10/18 - Allergies Allergies/Adverse Reactions: Allergies Allergy/AdvReac Type Severity Reaction Status Date / Time penicillin G Allergy Intermediate Unknown Verified 02/06/18 15:39 Sulfa (Sulfonamide Allergy Intermediate Rash Verified 02/06/18 15:39 Antibiotics) dyazides Allergy Intermediate Unknown Uncoded 02/06/18 15:39 Review of Systems - Other Findings Other Findings: A comprehensive review of systems was performed the pertinent positives and negatives are stated above in the HPI and the remainder of the review of systems is negative. Exam - Vital Signs Reviewed Vital Signs: Yes Vital Signs: Vital Signs x48h Temp Pulse Pulse Resp BP BP Pulse Ox 02/06/18 21:37 36.7 C 74 16 109/45 L 97 02/06/18 20:38 37.6 C H 73 18 131/59 H 94 - Physical Exam General Appearance: positive: No acute distress, Alert, Other (Obese) Eyes Bilateral: positive: Normal inspection, PERRL, EOMI, No lid inflammation, Conjunctivae nml, No scleral icterus ENT: positive: ENT inspection nml, Pharynx nml, Dry mucous membranes. negative : Purulent nasal drainage, Pharyngeal erythema, Oral lesions Neck: positive: Nml inspection, Thyroid nml, No JVD, Trachea midline. negative : Thyromegaly, Lymphadenopathy (R), Lymphadenopathy (L), Stiff neck, Carotid bruit, Tracheal deviation Respiratory: positive: Chest non-tender, No respiratory distress, Breath sounds nml. negative: Wheezes, Rales, Rhonchi Cardiovascular: positive: Regular rate & rhythm, No murmur, No gallop Peripheral Pulses: positive: 2+ Abdomen: positive: Non-tender, No organomegaly, Nml bowel sounds, No distention. negative: Guarding, Rebound, Hepatomegaly Back: positive: Nml inspection. negative: CVA tenderness (R), CVA tenderness (L ) Skin: positive: Other (Patient has swelling, erythema, warmth and tenderness of her right upper extremity with the worse swelling in the right hand. There is extensive excoriations of the patient's gluteal area bilaterally around her gluteal folds and on her buttocks. There is also increased erythema and excoriations of her bilateral thighs worse on the left than the right. The patient has patches of erythema with swelling warmth and tenderness on bilateral lower extremities. Although skin changes in the lower extremities and gluteal area appear more consistent with fungal etiology and skin rash the patient's right upper extremity erythema appears more consistent with cellulitis.) Extremities: positive: Full ROM, Pedal edema, Other (Right upper extremity erythema, warmth and tenderness.) Neurologic/Psychiatric: positive: Oriented x3, CN's nml (2-12), Motor nml, Sensation nml, Mood/affect nml Conclusion/Plan - Problem List (1) Cellulitis Conclusion/Plan: Patient appears to have cellulitis of her right upper extremity presenting with a low-grade fever and subjective fevers at home. She does have leukocytosis with a WBC of 16.7. The patient's cellulitis appears to be progressing quite rapidly and is extensive. She has multiple comorbidities including severe debility with very limited mobility and is bedbound. It appears that patient's cellulitis would likely best respond to IV antibiotics at this time. Patient has had multiple episodes of cellulitis in the past. The patient also has extensive areas of erythema throughout her back, buttocks and bilateral lower extremities. Some of this has excoriations and appears more to be chronic wound and likely fungal in nature. Plan: IV vancomycin and IV ceftriaxone Gentle IV hydration Wound care Nystatin powder for erythema on wounds and in the folds likely fungal Monitor for fevers and leukocytosis Follow-up blood cultures Qualifiers: Site of cellulitis: extremity Site of cellulitis of extremity: upper extremity Laterality: right Qualified Code(s): L03.113 - Cellulitis of right upper limb (2) UTI (urinary tract infection) Conclusion/Plan: The patient has an indwelling Adams catheter with chronic urinary tract infections. On presentation the patient has a low-grade fever with a leukocytosis of 16.7. She does not have any elevated lactic acid. She does appear to be somewhat dehydrated with a sodium of 131 and chloride of 94. The patient's urine analysis shows positive nitrite, large leukocyte esterase greater than 25 WBCs and moderate bacteria concerning for urinary tract infection. Plan: IV ceftriaxone Change Adams catheter Follow-up urine and blood cultures Qualifiers: Urinary tract infection type: catheter-associated UTI Indwelling urinary catheter type: indwelling urethral catheter Encounter type: initial encounter Qualified Code(s): T83.511A - Infection and inflammatory reaction due to indwelling urethral catheter, initial encounter; N39.0 - Urinary tract infection , site not specified; N39.0 - Urinary tract infection, site not specified (3) CHF (congestive heart failure), NYHA class III Conclusion/Plan: Patient has a history of systolic heart failure secondary to alcoholic cardiomyopathy. The patient's last echocardiogram in our system is from 2015 and at that time she was found to have a ejection fraction of 20-25%. Given her history of congestive heart failure we will only give her gentle hydration although she does appear to be dehydrated with a sodium of 131 secondary to ongoing infections. The patient will be continued on her home doses of metoprolol and spironolactone. We will hold her Lasix for now as she does appear dehydrated. Qualifiers: Congestive heart failure type: systolic Congestive heart failure chronicity : chronic Qualified Code(s): I50.22 - Chronic systolic (congestive) heart failure (4) Atrial fibrillation Conclusion/Plan: Patient has a history of atrial fibrillation which appears to be rate controlled with metoprolol and digoxin. The patient is on chronic Coumadin. The patient's INR is 1.5 which is slightly subtherapeutic. Plan: Continue patient on metoprolol and digoxin for rate control Continue patient's Coumadin and monitor INR daily Qualifiers: Atrial fibrillation type: unspecified Qualified Code(s): I48.91 - Unspecified atrial fibrillation (5) Chronic pain Conclusion/Plan: The patient has a history of chronic pain. She states that her pain is all over in her joints. She states that her pain is secondary to osteoarthritis and rheumatoid arthritis. The patient is maintained on a fentanyl patch 25 mcg and oxycodone 5 mg twice daily along with Tylenol for her pain. The patient is followed by palliative care at home. She will be continued on her home regimen for her pain while she is hospitalized. Qualifiers: Chronic pain type: chronic pain syndrome Qualified Code(s): G89.4 - Chronic pain syndrome (6) Hyponatremia Conclusion/Plan: Patient sodium is 131 on presentation. The patient appears to have hypovolemic hyponatremia she does appear to be dry on examination. Patient has a history of congestive heart failure with systolic dysfunction. We will give the patient IV fluid but will give only gentle hydration. We will give her 1 L of fluid and monitor closely for any CHF exacerbation. We will monitor the patient 's sodium. (7) COPD (chronic obstructive pulmonary disease) Conclusion/Plan: Patient is a history of hyperlipidemia and he is on patient has a history of COPD/asthma. Although she states that she has never been a drinker. She likely also has some obesity hypoventilation syndrome given her obesity. The patient does have a history of obstructive sleep apnea but is not on CPAP. The patient currently does not appear to be short of breath and is not hypoxic. We will place the patient on duo nebs as needed while she is hospitalized. Qualifiers: Emphysema type: unspecified (8) Peripheral neuropathy Conclusion/Plan: Patient is a history of peripheral neuropathy and takes gabapentin at home. Patient will be continued on gabapentin while she is hospitalized. Qualifiers: Peripheral neuropathy type: polyneuropathy, unspecified Qualified Code(s): G62.9 - Polyneuropathy, unspecified (9) Depression Conclusion/Plan: The patient has a history of depression and is on Effexor, Zyprexa and trazodone at home. We will continue these medications while she is hospitalized. The patient currently appears to be in a stable mood. Qualifiers: Depression Type: unspecified Qualified Code(s): F32.9 - Major depressive disorder, single episode, unspecified - Lab Results Lab results reviewed: Yes Fish Bones: 02/06/18 17:18 02/06/18 18:00 Other Lab Results: Laboratory Results WBC 16.7 x10^3/uL (4.8-10.8) H 02/06/18 17:18 RBC 3.84 10^6/uL (4.20-5.40) L 02/06/18 17:18 Hgb 11.7 g/dL (12.0-16.0) L 02/06/18 17:18 Hct 35.0 % (37.0-47.0) L 02/06/18 17:18 MCV 91.1 fL (81.0-99.0) 02/06/18 17:18 MCH 30.6 pg (27.0-31.0) 02/06/18 17:18 MCHC 33.5 g/dL (32.0-36.0) 02/06/18 17:18 RDW 13.6 % (12.0-15.0) 02/06/18 17:18 Plt Count 242 10^3/uL (130-450) 02/06/18 17:18 MPV 7.5 fL (7.9-10.8) L 02/06/18 17:18 Neut # (Auto) 14.3 10^3/uL (1.5-6.6) H 02/06/18 17:18 Lymph # (Auto) 1.4 10^3/uL (1.5-3.5) L 02/06/18 17:18 [place] # (Auto) 0.7 10^3/uL (0.0-1.0) 02/06/18 17:18 Eos # (Auto) 0.3 10^3/uL (0.0-0.7) 02/06/18 17:18 Baso # (Auto) 0.1 10^3/uL (0.0-0.1) 02/06/18 17:18 Absolute Nucleated RBC 0.00 x10^3/uL 02/06/18 17:18 Nucleated RBC % 0.0 /100WBC 02/06/18 17:18 PT 17.2 secs (9.9-12.6) H 02/06/18 17:18 INR 1.5 (0.8-1.2) H 02/06/18 17:18 Sodium 131 mmol/L (135-145) L 02/06/18 18:00 Potassium 3.8 mmol/L (3.5-5.0) 02/06/18 18:00 Chloride 94 mmol/L (101-111) L 02/06/18 18:00 Carbon Dioxide 26 mmol/L (21-32) 02/06/18 18:00 Anion Gap 11.0 (6-13) 02/06/18 18:00 BUN 22 mg/dL (6-20) H 02/06/18 18:00 Creatinine 0.7 mg/dL (0.4-1.0) 02/06/18 18:00 Estimated GFR (MDRD) 82 (>89) L 02/06/18 18:00 Glucose 99 mg/dL (70-100) 02/06/18 18:00 Lactic Acid 1.5 mmol/L (0.5-2.2) 02/06/18 18:00 Calcium 8.5 mg/dL (8.5-10.3) 02/06/18 18:00 Total Bilirubin 0.4 mg/dL (0.2-1.0) 02/06/18 18:00 AST 33 IU/L (10-42) 02/06/18 18:00 ALT 26 IU/L (10-60) 02/06/18 18:00 Alkaline Phosphatase 124 IU/L (42-121) H 02/06/18 18:00 Total Protein 6.2 g/dL (6.7-8.2) L 02/06/18 18:00 Albumin 2.5 g/dL (3.2-5.5) L 02/06/18 18:00 Globulin 3.7 g/dL (2.1-4.2) 02/06/18 18:00 Albumin/Globulin Ratio 0.7 (1.0-2.2) L 02/06/18 18:00 Lipase 21 U/L (22-51) L 02/06/18 18:00 Urine Color YELLOW 02/06/18 17:20 Urine Clarity HAZY (CLEAR) 02/06/18 17:20 Urine pH 6.0 PH (5.0-7.5) 02/06/18 17:20 Ur Specific [place] <=1.005 (1.002-1.030) 02/06/18 17:20 Urine Protein NEGATIVE mg/dL (NEGATIVE) 02/06/18 17:20 Urine Glucose (UA) NEGATIVE mg/dL (NEGATIVE) 02/06/18 17:20 Urine Ketones NEGATIVE mg/dL (NEGATIVE) 02/06/18 17:20 Urine Occult Blood MODERATE (NEGATIVE) H 02/06/18 17:20 Urine Nitrite POSITIVE (NEGATIVE) H 02/06/18 17:20 Urine Bilirubin NEGATIVE (NEGATIVE) 02/06/18 17:20 Urine Urobilinogen 0.2 (NORMAL) E.U./dL (NORMAL) 02/06/18 17:20 Ur Leukocyte Esterase LARGE (NEGATIVE) H 02/06/18 17:20 Urine RBC 0-5 /HPF (0-5) 02/06/18 17:20 Urine WBC >25 /HPF (0-5) H 02/06/18 17:20 Urine WBC Clumps PRESENT 02/06/18 17:20 Ur Squamous Epith Cells NONE SEEN (<= Few) 02/06/18 17:20 Urine Bacteria Moderate /HPF (None Seen) H 02/06/18 17:20 Ur Microscopic Review INDICATED 02/06/18 17:20 Urine Culture Comments INDICATED 02/06/18 17:20 Core Measures - Anticipated LOS I expect patient to be DC'd or transferred within 96 hours.: Yes - DVT/VTE - Prophylaxis VTE/DVT Device ordered at admit?: Yes
[2018-02-06] MEDS: GABAPENTIN 300 MG CAPSULE PO SCH (23:04)
[2018-02-06] MEDS: traZODone 50 MG TABLET PO SCH (23:04)
[2018-02-06] MEDS: fentaNYL 25 MCG PATCH TOP SCH (23:40)
[2018-02-07] MEDS: ACETAMINOPHEN 325 MG TABLET PO PRN ×2 (00:23→21:02)
[2018-02-07] MEDS: oxyCODONE 5 MG TABLET PO PRN ×3 (00:23→14:43)
[2018-02-07] MEDS: SODIUM CHLORIDE FLUSH 0.9% 10 ML SYRINGE IVP SCH ×3 (02:08→16:04)
[2018-02-07] MEDS ORDERED: IPRATROPIUM/ALBUTEROL 3 ML NEB INH PRN (02:25)
[2018-02-07 06:11] LABS: BASOPHILS # (AUTO) 0.1 10^3/uL (0.0-0.1); BASOPHILS % (AUTO) 0.6 %; EOSINOPHILS # (AUTO) 0.3 10^3/uL (0.0-0.7); HGB - HEMOGLOBIN 10.7 g/dL (12.0-16.0); LYMPHOCYTES # (AUTO) 1.2 10^3/uL (1.5-3.5); LYMPHOCYTES % (AUTO) 8.3 %; MEAN CORPUSCULAR HEMOGLOBIN 30.6 pg (27.0-31.0); MEAN CORPUSCULAR HGB CONC 33.4 g/dL (32.0-36.0); MEAN CORPUSCULAR VOLUME 91.5 fL (81.0-99.0); MEAN PLATELET VOLUME 7.4 fL (7.9-10.8); MONOCYTES # (AUTO) 0.6 10^3/uL (0.0-1.0); MONOCYTES % (AUTO) 4.3 %; NEUTROPHILS # (AUTO) 11.9 10^3/uL (1.5-6.6); NEUTROPHILS % (AUTO) 84.8 %; PLT - PLATELET COUNT 264 10^3/uL (130-450); RED CELL DISTRIBUTION WIDTH 13.5 % (12.0-15.0)
[2018-02-07 06:21] LABS: ALBUMIN 2.4 g/dL (3.2-5.5); ALBUMIN/GLOBULIN RATIO 0.7 (1.0-2.2); BILIRUBIN,TOTAL 0.7 mg/dL (0.2-1.0); CALCIUM 8.9 mg/dL (8.5-10.3); CREATININE 0.5 mg/dL (0.4-1.0); TOTAL PROTEIN 5.9 g/dL (6.7-8.2)
[2018-02-07 06:25] LABS: INR 1.6 (0.8-1.2); PT - PROTHROMBIN TIME 17.5 secs (9.9-12.6)
[2018-02-07] MEDS: PANTOPRAZOLE 40 MG TABLET PO SCH (07:06)
[2018-02-07] MEDS ORDERED: POTASSIUM CHLORIDE 20 MEQ TABLET PO SCH (08:21)
[2018-02-07] MEDS: VANCOMYCIN INJ 1 GM in SODIUM CHLORIDE 0.9% 250 ML IV SCH ×2 (09:52→20:58)
[2018-02-07] MEDS: SACCHAROMYCES BOULARDII 250 MG CAPSULE PO SCH ×2 (09:52→16:04)
[2018-02-07] MEDS: VENLAFAXINE 37.5 MG TABLET PO SCH (09:52)
[2018-02-07] MEDS: METOPROLOL SUCCINATE 25 MG TABLET PO SCH (09:52)
[2018-02-07] MEDS: OLANZapine ODT 5 MG TABLET TL SCH ×2 (09:52→20:50)
[2018-02-07] MEDS: SPIRONOLACTONE 25 MG TABLET PO SCH (09:53)
[2018-02-07] MEDS: NYSTATIN POWDER 15 GM TOP SCH ×2 (09:54→20:50)
[2018-02-07] MEDS: DIGOXIN 125 MCG TABLET PO SCH (09:54)
[2018-02-07] MEDS: POLYETHYLENE GLYCOL 3350 17 GM PACKET PO SCH (09:54)
[2018-02-07] MEDS: GABAPENTIN 300 MG CAPSULE PO SCH ×2 (09:54→20:50)
[2018-02-07] MEDS ORDERED: VANCOMYCIN INJ 1.5 GM in SODIUM CHLORIDE 0.9% 500 ML IV SCH (12:00)
[2018-02-07] MEDS ORDERED: WARFARIN 1 MG TABLET PO SCH (14:00)
[2018-02-07] MEDS: cefTRIAXone 1 GM in SODIUM CHLORIDE 0.9% MINIBAG 100 ML IV SCH (16:54)
--- NOTE | 2018-02-07 16:59 | PROVIDER PROGRESS NOTE ---
Subjective - Prog Note Date Prog Note Date: 02/07/18 - Subjective Pt reports feeling: Improved Subjective: pt report her erythema of her right upper arm is reduced, pain is better controlled. pt report she had multiple cellulitis at her right upper arm but this time she though it is more severe. pt denies fever, chill, CP. Current Medications - Current Medications Current Medications: Active Medications Acetaminophen (Tylenol) 650 mg PO Q4HR PRN PRN Reason: Pain 1 to 4 Last Admin: 02/07/18 00:23 Dose: 650 mg Albuterol/Ipratropium (Duoneb) 3 ml INH RTQID PRN PRN Reason: Shortness of Air/Wheezing Digoxin (Lanoxin) 125 mcg PO DAILY [facility] Last Admin: 02/07/18 09:54 Dose: 125 mcg Fentanyl (Duragesic) 1 patch TOP Q72H [facility] Last Admin: 02/06/18 23:40 Dose: Not Given Gabapentin (Neurontin) 300 mg PO BID [facility] Last Admin: 02/07/18 09:54 Dose: 300 mg Ceftriaxone Sodium 1 gm/ (Sodium Chloride) 100 mls @ 200 mls/hr IV Q24H [facility] Last Admin: 02/07/18 16:54 Dose: 200 mls/hr Vancomycin HCl 1 gm/ Sodium (Chloride) 250 mls @ 167 mls/hr IV Q12H [facility] Last Infusion: 02/07/18 11:55 Dose: Infused Metoprolol Succinate (Toprol Xl) 12.5 mg PO DAILY [facility] Last Admin: 02/07/18 09:52 Dose: 12.5 mg Mineral Oil (Cavilon) 1 applic TOP PRN PRN PRN Reason: Skin Care Last Admin: 02/06/18 22:18 Dose: 1 applic Nystatin (Nystop) 1 applic TOP BID [facility] Last Admin: 02/07/18 09:54 Dose: 1 applic Olanzapine (Zyprexa Odt) 5 mg TL BID [facility] Last Admin: 02/07/18 09:52 Dose: 5 mg Ondansetron HCl (Zofran Inj) 4 mg IVP Q6HR PRN PRN Reason: Nausea / Vomiting Oxybutynin Chloride (Ditropan) 5 mg PO BID PRN PRN Reason: Spasms Last Admin: 02/07/18 14:43 Dose: 5 mg Oxycodone HCl (Roxicodone) 5 mg PO BID PRN PRN Reason: PAIN Last Admin: 02/07/18 14:43 Dose: 5 mg Pantoprazole Sodium (Protonix) 40 mg PO QDAC [facility] Last Admin: 02/07/18 07:06 Dose: 40 mg Polyethylene Glycol (Miralax) 17 gm PO DAILY [facility] Last Admin: 02/07/18 09:54 Dose: Not Given Prochlorperazine Edisylate (Compazine Inj) 10 mg IVP Q6HR PRN PRN Reason: Nausea / Vomiting Promethazine HCl (Phenergan Inj) 25 mg IM Q6HR PRN PRN Reason: Nausea / Vomiting Saccharomyces Boulardii (Florastor) 250 mg PO BIDWM [facility] Last Admin: 02/07/18 16:04 Dose: 250 mg Sodium Chloride (Normal Saline Flush 0.9%) 10 ml IVP PRN PRN PRN Reason: NEEDED PER PROVIDER ORDERS Sodium Chloride (Normal Saline Flush 0.9%) 10 ml IVP 0100,0900,1700 [facility] Last Admin: 02/07/18 16:04 Dose: 10 ml Spironolactone (Aldactone) 12.5 mg PO DAILY [facility] Last Admin: 02/07/18 09:53 Dose: 12.5 mg Trazodone HCl (Desyrel) 50 mg PO QPM [facility] Last Admin: 02/06/18 23:04 Dose: 50 mg Venlafaxine HCl (Effexor) 75 mg PO DAILY [facility] Last Admin: 02/07/18 09:52 Dose: 75 mg Warfarin Sodium (Coumadin) 4 mg PO QPM [facility] Venlafaxine [Effexor] 75 mg PO DAILY 07/10/13 Furosemide [Lasix] 40 mg PO DAILY 12/28/15 Gabapentin 300 mg PO BID 12/28/15 Omeprazole [PriLOSEC] 20 mg PO DAILY PRN 12/28/15 Metoprolol Succinate 12.5 mg PO DAILY 07/27/16 Spironolactone 12.5 mg PO DAILY 07/27/16 Digoxin 125 mcg PO DAILY 09/08/17 Ipratropium/Albuterol Sulfate [Iprat-Albut 0.5-3(2.5) mg/3 ml] 1 unit INH BID PRN 09/08/17 Oxycodone HCl 5 mg PO BID PRN MDD use for breakthrough pain only 09/08/17 Docusate Sodium 100 mg PO DAILY PRN 10/13/17 Nystatin 1 applic TP BID 10/13/17 Oxybutynin Chloride 5 mg PO BID PRN MDD bladder spasms 10/13/17 Warfarin Sodium 4 mg PO DAILY 10/13/17 traZODone [Desyrel] 25 - 50 mg PO .QHS PRN 11/09/17 OLANZapine [Zyprexa] 5 mg PO BID 11/15/17 Senna [Senokot] 1 - 2 tab PO DAILY PRN 01/10/18 fentaNYL [Fentanyl 25mcg patch] 25 mcg TD Q72H 01/10/18 Objective - Vital Signs/Intake & Output Reviewed Vital Signs: Yes Vital Signs: Vital Signs x48h Temp Pulse Resp BP Pulse Ox 02/07/18 16:23 36.8 C 85 16 119/46 L 97 Intake & Output: Intake & Output 02/04/18 02/05/18 02/06/18 02/07/18 23:59 23:59 23:59 23:59 Intake Total 500 3150.000 Output Total 725 2200 Balance -225 950.000 - Objective General Appearance: positive: No acute distress, Alert. negative: Lethargic Eyes Bilateral: positive: Normal inspection, PERRL, No lid inflammation, Conjunctivae nml ENT: positive: ENT inspection nml, Pharynx nml, No signs of dehydration. negative: Purulent nasal drainage, Pharyngeal erythema, Oral lesions Neck: positive: Nml inspection, Thyroid nml, No JVD, Trachea midline. negative : Thyromegaly, Lymphadenopathy (R), Lymphadenopathy (L), Stiff neck, Swelling/ bruising, Tracheal deviation Respiratory: positive: Chest non-tender, No respiratory distress, Breath sounds nml. negative: Wheezes, Rales, Rhonchi Cardiovascular: positive: Regular rate & rhythm, No murmur, No gallop. negative : Irregularly irregular, Extrasystoles, Tachycardia, Bradycardia, JVD present, Systolic murmur, Diastolic murmur Peripheral Pulses: 2+ Radial (R), 2+ Radial (L), 2+ Dorsalis pedis (R), 2+ Dorsalis pedis (L) Abdomen: positive: Non-tender, No organomegaly, Nml bowel sounds, No distention. negative: Tenderness, Guarding, Rebound Back: positive: Nml inspection. negative: CVA tenderness (R), CVA tenderness (L ) Skin: positive: Warm, Dry, Skin rash. negative: Cyanosis, Diaphoresis, Pallor Extremities: positive: Non-tender. negative: Calf tenderness, Joint swelling, Dickson's sign/cords Neurologic/Psychiatric: positive: Oriented x3, Sensation nml, Mood/affect nml. negative: Weakness, Sensory loss, Facial droop, Slurred/abnml speech, Depressed mood/affect - Lab Results Fish Bones: 02/07/18 05:55 02/07/18 05:55 Other Labs: Lab Results x24hrs 02/07/18 02/07/18 02/07/18 Range/Units 05:55 05:55 05:55 WBC (4.8-10.8) x10^3/uL RBC (4.20-5.40) 10^6/uL Hgb (12.0-16.0) g/dL Hct (37.0-47.0) % MCV (81.0-99.0) fL MCH (27.0-31.0) pg MCHC (32.0-36.0) g/dL RDW (12.0-15.0) % Plt Count (130-450) 10^3/uL MPV (7.9-10.8) fL Neut # (Auto) (1.5-6.6) 10^3/uL Lymph # (Auto) (1.5-3.5) 10^3/uL Sargent # (Auto) (0.0-1.0) 10^3/uL Eos # (Auto) (0.0-0.7) 10^3/uL Baso # (Auto) (0.0-0.1) 10^3/uL Absolute Nucleated RBC x10^3/uL Nucleated RBC % /100WBC PT 17.5 H (9.9-12.6) secs INR 1.6 H (0.8-1.2) Sodium 131 L (135-145) mmol/L Potassium 3.4 L (3.5-5.0) mmol/L Chloride 103 (101-111) mmol/L Carbon Dioxide 24 (21-32) mmol/L Anion Gap 4.0 L (6-13) BUN 17 (6-20) mg/dL Creatinine 0.5 (0.4-1.0) mg/dL Estimated GFR (MDRD) 121 (>89) Glucose 89 (70-100) mg/dL Calcium 8.9 (8.5-10.3) mg/dL Total Bilirubin 0.7 (0.2-1.0) mg/dL AST 24 (10-42) IU/L ALT 19 (10-60) IU/L Alkaline Phosphatase 113 (42-121) IU/L B-Natriuretic Peptide 211 H (5-100) pg/mL Total Protein 5.9 L (6.7-8.2) g/dL Albumin 2.4 L (3.2-5.5) g/dL Globulin 3.5 (2.1-4.2) g/dL Albumin/Globulin Ratio 0.7 L (1.0-2.2) 02/07/18 Range/Units 05:55 WBC 14.0 H (4.8-10.8) x10^3/uL RBC 3.50 L (4.20-5.40) 10^6/uL Hgb 10.7 L (12.0-16.0) g/dL Hct 32.1 L (37.0-47.0) % MCV 91.5 (81.0-99.0) fL MCH 30.6 (27.0-31.0) pg MCHC 33.4 (32.0-36.0) g/dL RDW 13.5 (12.0-15.0) % Plt Count 264 (130-450) 10^3/uL MPV 7.4 L (7.9-10.8) fL Neut # (Auto) 11.9 H (1.5-6.6) 10^3/uL Lymph # (Auto) 1.2 L (1.5-3.5) 10^3/uL Sargent # (Auto) 0.6 (0.0-1.0) 10^3/uL Eos # (Auto) 0.3 (0.0-0.7) 10^3/uL Baso # (Auto) 0.1 (0.0-0.1) 10^3/uL Absolute Nucleated RBC 0.00 x10^3/uL Nucleated RBC % 0.0 /100WBC PT (9.9-12.6) secs INR (0.8-1.2) Sodium (135-145) mmol/L Potassium (3.5-5.0) mmol/L Chloride (101-111) mmol/L Carbon Dioxide (21-32) mmol/L Anion Gap (6-13) BUN (6-20) mg/dL Creatinine (0.4-1.0) mg/dL Estimated GFR (MDRD) (>89) Glucose (70-100) mg/dL Calcium (8.5-10.3) mg/dL Total Bilirubin (0.2-1.0) mg/dL AST (10-42) IU/L ALT (10-60) IU/L Alkaline Phosphatase (42-121) IU/L B-Natriuretic Peptide (5-100) pg/mL Total Protein (6.7-8.2) g/dL Albumin (3.2-5.5) g/dL Globulin (2.1-4.2) g/dL Albumin/Globulin Ratio (1.0-2.2) ABX Reporting Has patient been on IV antibiotics over the past 48 hours?: Yes Assessment/Plan - Problem List (1) Cellulitis Impression: Conclusion/Plan: 02/07 pt's erythema, swelling, and pain all improved per pt state IV vancomycin and IV ceftriaxone Gentle IV hydration Wound care follow up blood culture Patient appears to have cellulitis of her right upper extremity presenting with a low-grade fever and subjective fevers at home. She does have leukocytosis with a WBC of 16.7. The patient's cellulitis appears to be progressing quite rapidly and is extensive. She has multiple comorbidities including severe debility with very limited mobility and is bedbound. It appears that patient's cellulitis would likely best respond to IV antibiotics at this time. Patient has had multiple episodes of cellulitis in the past. The patient also has extensive areas of erythema throughout her back, buttocks and bilateral lower extremities. Some of this has excoriations and appears more to be chronic wound and likely fungal in nature. Plan: IV vancomycin and IV ceftriaxone Gentle IV hydration Wound care Nystatin powder for erythema on wounds and in the folds likely fungal Monitor for fevers and leukocytosis Follow-up blood cultures (2) UTI (urinary tract infection) Conclusion/Plan: 02/07 continue IV ceftriaxone Change Estevez catheter, and continue estevez care Follow-up urine The patient has an indwelling Estevez catheter with chronic urinary tract infections. On presentation the patient has a low-grade fever with a leukocytosis of 16.7. She does not have any elevated lactic acid. She does appear to be somewhat dehydrated with a sodium of 131 and chloride of 94. The patient's urine analysis shows positive nitrite, large leukocyte esterase greater than 25 WBCs and moderate bacteria concerning for urinary tract infection. Plan: IV ceftriaxone Change Estevez catheter Follow-up urine and blood cultures (3) CHF (congestive heart failure), NYHA class III Conclusion/Plan: 02/07 check with ECHO, will follow up continued on her home doses of metoprolol and spironolactone. 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 The patient's last echocardiogram in our system is from 2015 and at that time she was found to have a ejection fraction of 20-25%. Given her history of congestive heart failure we will only give her gentle hydration although she does appear to be dehydrated with a sodium of 131 secondary to ongoing infections. The patient will be continued on her home doses of metoprolol and spironolactone. We will hold her Lasix for now as she does appear dehydrated. (4) Atrial fibrillation Conclusion/Plan: 02/07 Continue patient on metoprolol and digoxin for rate control, coumadin, check INR daily Patient has a history of atrial fibrillation which appears to be rate controlled with metoprolol and digoxin. The patient is on chronic Coumadin. The patient's INR is 1.5 which is slightly subtherapeutic. Plan: Continue patient on metoprolol and digoxin for rate control Continue patient's Coumadin and monitor INR daily (5) Chronic pain Conclusion/Plan: The patient has a history of chronic pain. She states that her pain is all over in her joints. She states that her pain is secondary to osteoarthritis and rheumatoid arthritis. The patient is maintained on a fentanyl patch 25 mcg and oxycodone 5 mg twice daily along with Tylenol for her pain. The patient is followed by palliative care at home. She will be continued on her home regimen for her pain while she is hospitalized. (6) Hyponatremia Conclusion/Plan: Na is still on 131, continue IVF of NS, daily lab monitor Patient sodium is 131 on presentation. The patient appears to have hypovolemic hyponatremia she does appear to be dry on examination. Patient has a history of congestive heart failure with systolic dysfunction. We will give the patient IV fluid but will give only gentle hydration. We will give her 1 L of fluid and monitor closely for any CHF exacerbation. We will monitor the patient 's sodium. (7) COPD (chronic obstructive pulmonary disease) Conclusion/Plan: Patient is a history of hyperlipidemia and he is on patient has a history of COPD/asthma. Although she states that she has never been a drinker. She likely also has some obesity hypoventilation syndrome given her obesity. The patient does have a history of obstructive sleep apnea but is not on CPAP. The patient currently does not appear to be short of breath and is not hypoxic. We will place the patient on duo nebs as needed while she is hospitalized. (8) Peripheral neuropathy Conclusion/Plan: Patient is a history of peripheral neuropathy and takes gabapentin at home. Patient will be continued on gabapentin while she is hospitalized. (9) Depression Conclusion/Plan: The patient has a history of depression and is on Effexor, Zyprexa and trazodone at home. We will continue these medications while she is hospitalized. The patient currently appears to be in a stable mood. Qualifiers: Site of cellulitis: extremity Site of cellulitis of extremity: upper extremity Laterality: right Qualified Code(s): L03.113 - Cellulitis of right upper limb
[2018-02-07] MEDS: WARFARIN 1 MG TABLET PO SCH (20:49)
[2018-02-07] MEDS: traZODone 50 MG TABLET PO SCH (20:50)
[2018-02-08] MEDS: oxyCODONE 5 MG TABLET PO PRN ×3 (02:06→17:00)
[2018-02-08] MEDS: SODIUM CHLORIDE FLUSH 0.9% 10 ML SYRINGE IVP SCH ×3 (02:08→17:02)
[2018-02-08 06:04] LABS: BASOPHILS # (AUTO) 0.1 10^3/uL (0.0-0.1); BASOPHILS % (AUTO) 0.9 %; EOSINOPHILS # (AUTO) 0.3 10^3/uL (0.0-0.7); EOSINOPHILS % (AUTO) 3.6 %; HGB - HEMOGLOBIN 10.7 g/dL (12.0-16.0); LYMPHOCYTES # (AUTO) 1.1 10^3/uL (1.5-3.5); LYMPHOCYTES % (AUTO) 13.2 %; MEAN CORPUSCULAR HEMOGLOBIN 30.9 pg (27.0-31.0); MEAN CORPUSCULAR HGB CONC 33.8 g/dL (32.0-36.0); MEAN CORPUSCULAR VOLUME 91.4 fL (81.0-99.0); MEAN PLATELET VOLUME 7.2 fL (7.9-10.8); MONOCYTES # (AUTO) 0.6 10^3/uL (0.0-1.0); MONOCYTES % (AUTO) 7.3 %; NEUTROPHILS # (AUTO) 6.1 10^3/uL (1.5-6.6); PLT - PLATELET COUNT 303 10^3/uL (130-450); RED BLOOD COUNT 3.45 10^6/uL (4.20-5.40); RED CELL DISTRIBUTION WIDTH 13.8 % (12.0-15.0); WHITE BLOOD COUNT 8.1 x10^3/uL (4.8-10.8)
[2018-02-08 06:08] LABS: INR 1.6 (0.8-1.2); PT - PROTHROMBIN TIME 17.3 secs (9.9-12.6)
[2018-02-08 06:18] LABS: ALBUMIN 2.2 g/dL (3.2-5.5); ALBUMIN/GLOBULIN RATIO 0.6 (1.0-2.2); BILIRUBIN,TOTAL 0.3 mg/dL (0.2-1.0); CALCIUM 8.5 mg/dL (8.5-10.3); CREATININE 0.6 mg/dL (0.4-1.0); TOTAL PROTEIN 5.6 g/dL (6.7-8.2)
[2018-02-08] MEDS: PANTOPRAZOLE 40 MG TABLET PO SCH (06:59)
[2018-02-08] MEDS ORDERED: POTASSIUM CHLORIDE 20 MEQ TABLET PO ONE (08:00)
[2018-02-08] MEDS: VANCOMYCIN INJ 1 GM in SODIUM CHLORIDE 0.9% 250 ML IV SCH ×2 (08:39→20:10)
[2018-02-08] MEDS: VENLAFAXINE 37.5 MG TABLET PO SCH (08:40)
[2018-02-08] MEDS: METOPROLOL SUCCINATE 25 MG TABLET PO SCH (08:40)
[2018-02-08] MEDS: OLANZapine ODT 5 MG TABLET TL SCH ×2 (08:40→22:20)
[2018-02-08] MEDS: GABAPENTIN 300 MG CAPSULE PO SCH ×2 (08:40→22:19)
[2018-02-08] MEDS: SPIRONOLACTONE 25 MG TABLET PO SCH (08:40)
[2018-02-08] MEDS: SACCHAROMYCES BOULARDII 250 MG CAPSULE PO SCH ×2 (08:41→17:00)
[2018-02-08] MEDS: DIGOXIN 125 MCG TABLET PO SCH (08:41)
[2018-02-08] MEDS: NYSTATIN POWDER 15 GM TOP SCH ×2 (08:41→22:20)
[2018-02-08] MEDS: POLYETHYLENE GLYCOL 3350 17 GM PACKET PO SCH (08:41)
[2018-02-08] MEDS: ACETAMINOPHEN 325 MG TABLET PO PRN ×2 (11:53→18:57)
--- NOTE | 2018-02-08 13:59 | PROVIDER PROGRESS NOTE ---
Subjective - Prog Note Date Prog Note Date: 02/08/18 - Subjective Pt reports feeling: Improved Subjective: pt's right arm's erythema, warm is better and reduced. pt feels better. pt denies fever, chill. No chest pain, SOB. Current Medications - Current Medications Current Medications: Active Medications Acetaminophen (Tylenol) 650 mg PO Q4HR PRN PRN Reason: Pain 1 to 4 Last Admin: 02/08/18 11:53 Dose: 650 mg Albuterol/Ipratropium (Duoneb) 3 ml INH RTQID PRN PRN Reason: Shortness of Air/Wheezing Last Admin: 02/08/18 10:13 Dose: 3 ml Digoxin (Lanoxin) 125 mcg PO DAILY [facility] Last Admin: 02/08/18 08:41 Dose: 125 mcg Fentanyl (Duragesic) 1 patch TOP Q72H [facility] Last Admin: 02/06/18 23:40 Dose: Not Given Gabapentin (Neurontin) 300 mg PO BID [facility] Last Admin: 02/08/18 08:40 Dose: 300 mg Ceftriaxone Sodium 1 gm/ (Sodium Chloride) 100 mls @ 200 mls/hr IV Q24H [facility] Last Infusion: 02/07/18 17:47 Dose: Infused Vancomycin HCl 1 gm/ Sodium (Chloride) 250 mls @ 167 mls/hr IV Q12H [facility] Last Infusion: 02/08/18 10:47 Dose: Infused Metoprolol Succinate (Toprol Xl) 12.5 mg PO DAILY [facility] Last Admin: 02/08/18 08:40 Dose: 12.5 mg Mineral Oil (Cavilon) 1 applic TOP PRN PRN PRN Reason: Skin Care Last Admin: 02/06/18 22:18 Dose: 1 applic Nystatin (Nystop) 1 applic TOP BID [facility] Last Admin: 02/08/18 08:41 Dose: 1 applic Olanzapine (Zyprexa Odt) 5 mg TL BID [facility] Last Admin: 02/08/18 08:40 Dose: 5 mg Ondansetron HCl (Zofran Inj) 4 mg IVP Q6HR PRN PRN Reason: Nausea / Vomiting Oxybutynin Chloride (Ditropan) 5 mg PO BID PRN PRN Reason: Spasms Last Admin: 02/07/18 14:43 Dose: 5 mg Oxycodone HCl (Roxicodone) 5 mg PO BID PRN PRN Reason: PAIN Last Admin: 02/08/18 11:29 Dose: 5 mg Pantoprazole Sodium (Protonix) 40 mg PO QDAC [facility] Last Admin: 02/08/18 06:59 Dose: 40 mg Polyethylene Glycol (Miralax) 17 gm PO DAILY [facility] Last Admin: 02/08/18 08:41 Dose: Not Given Prochlorperazine Edisylate (Compazine Inj) 10 mg IVP Q6HR PRN PRN Reason: Nausea / Vomiting Promethazine HCl (Phenergan Inj) 25 mg IM Q6HR PRN PRN Reason: Nausea / Vomiting Saccharomyces Boulardii (Florastor) 250 mg PO BIDWM [facility] Last Admin: 02/08/18 08:41 Dose: 250 mg Sodium Chloride (Normal Saline Flush 0.9%) 10 ml IVP PRN PRN PRN Reason: NEEDED PER PROVIDER ORDERS Sodium Chloride (Normal Saline Flush 0.9%) 10 ml IVP 0100,0900,1700 [facility] Last Admin: 02/08/18 08:41 Dose: 10 ml Spironolactone (Aldactone) 12.5 mg PO DAILY [facility] Last Admin: 02/08/18 08:40 Dose: 12.5 mg Trazodone HCl (Desyrel) 50 mg PO QPM [facility] Last Admin: 02/07/18 20:50 Dose: 50 mg Venlafaxine HCl (Effexor) 75 mg PO DAILY [facility] Last Admin: 02/08/18 08:40 Dose: 75 mg Warfarin Sodium (Coumadin) 4 mg PO QPM [facility] Last Admin: 02/07/18 20:49 Dose: 4 mg Venlafaxine [Effexor] 75 mg PO DAILY 07/10/13 Furosemide [Lasix] 40 mg PO DAILY 12/28/15 Gabapentin 300 mg PO BID 12/28/15 Omeprazole [PriLOSEC] 20 mg PO DAILY PRN 12/28/15 Metoprolol Succinate 12.5 mg PO DAILY 07/27/16 Spironolactone 12.5 mg PO DAILY 07/27/16 Digoxin 125 mcg PO DAILY 09/08/17 Ipratropium/Albuterol Sulfate [Iprat-Albut 0.5-3(2.5) mg/3 ml] 1 unit INH BID PRN 09/08/17 Oxycodone HCl 5 mg PO BID PRN MDD use for breakthrough pain only 09/08/17 Docusate Sodium 100 mg PO DAILY PRN 10/13/17 Nystatin 1 applic TP BID 10/13/17 Oxybutynin Chloride 5 mg PO BID PRN MDD bladder spasms 10/13/17 Warfarin Sodium 4 mg PO DAILY 10/13/17 traZODone [Desyrel] 25 - 50 mg PO .QHS PRN 11/09/17 OLANZapine [Zyprexa] 5 mg PO BID 11/15/17 Senna [Senokot] 1 - 2 tab PO DAILY PRN 01/10/18 fentaNYL [Fentanyl 25mcg patch] 25 mcg TD Q72H 01/10/18 Objective - Vital Signs/Intake & Output Reviewed Vital Signs: Yes Vital Signs: Vital Signs x48h Temp Pulse Pulse Resp BP Pulse Ox 02/08/18 10:14 80 18 02/08/18 08:00 36.5 C 84 16 115/43 L 97 Intake & Output: Intake & Output 02/05/18 02/06/18 02/07/18 02/08/18 23:59 23:59 23:59 23:59 Intake Total 500 4130.000 1740 Output Total 725 2550 1950 Balance -225 1580.000 -210 - Objective General Appearance: positive: No acute distress, Alert. negative: Lethargic Eyes Bilateral: positive: Normal inspection, PERRL, No lid inflammation, Conjunctivae nml ENT: positive: ENT inspection nml, Pharynx nml, No signs of dehydration. negative: Purulent nasal drainage, Pharyngeal erythema, Oral lesions Neck: positive: Nml inspection, Thyroid nml, No JVD, Trachea midline. negative : Thyromegaly, Lymphadenopathy (R), Lymphadenopathy (L), Stiff neck, Swelling/ bruising, Tracheal deviation Respiratory: positive: Chest non-tender, No respiratory distress, Breath sounds nml. negative: Wheezes, Rales, Rhonchi Cardiovascular: positive: Regular rate & rhythm, No murmur, No gallop. negative : Irregularly irregular, Extrasystoles, Tachycardia, Bradycardia, JVD present, Systolic murmur, Diastolic murmur Peripheral Pulses: 2+ Radial (R), 2+ Radial (L), 2+ Dorsalis pedis (R), 2+ Dorsalis pedis (L) Abdomen: positive: Non-tender, No organomegaly, Nml bowel sounds, No distention. negative: Tenderness, Guarding, Rebound Back: positive: Nml inspection. negative: CVA tenderness (R), CVA tenderness (L ) Skin: positive: Warm, Dry, Skin rash. negative: Cyanosis, Diaphoresis, Pallor Extremities: positive: Non-tender, Full ROM, Nml appearance. negative: Calf tenderness, Joint swelling, Dickson's sign/cords Neurologic/Psychiatric: positive: Oriented x3, Sensation nml, Mood/affect nml. negative: Weakness, Sensory loss, Facial droop, Slurred/abnml speech, Depressed mood/affect - Lab Results Fish Bones: 02/08/18 05:45 02/08/18 05:45 Other Labs: Lab Results x24hrs 02/08/18 02/08/18 02/08/18 Range/Units 05:45 05:45 05:45 WBC 8.1 (4.8-10.8) x10^3/uL RBC 3.45 L (4.20-5.40) 10^6/uL Hgb 10.7 L (12.0-16.0) g/dL Hct 31.6 L (37.0-47.0) % MCV 91.4 (81.0-99.0) fL MCH 30.9 (27.0-31.0) pg MCHC 33.8 (32.0-36.0) g/dL RDW 13.8 (12.0-15.0) % Plt Count 303 (130-450) 10^3/uL MPV 7.2 L (7.9-10.8) fL Neut # (Auto) 6.1 (1.5-6.6) 10^3/uL Lymph # (Auto) 1.1 L (1.5-3.5) 10^3/uL [place] # (Auto) 0.6 (0.0-1.0) 10^3/uL Eos # (Auto) 0.3 (0.0-0.7) 10^3/uL Baso # (Auto) 0.1 (0.0-0.1) 10^3/uL Absolute Nucleated RBC 0.00 x10^3/uL Nucleated RBC % 0.0 /100WBC PT 17.3 H (9.9-12.6) secs INR 1.6 H (0.8-1.2) Sodium 138 (135-145) mmol/L Potassium 3.2 L (3.5-5.0) mmol/L Chloride 104 (101-111) mmol/L Carbon Dioxide 26 (21-32) mmol/L Anion Gap 8.0 (6-13) BUN 8 (6-20) mg/dL Creatinine 0.6 (0.4-1.0) mg/dL Estimated GFR (MDRD) 98 (>89) Glucose 117 H (70-100) mg/dL Calcium 8.5 (8.5-10.3) mg/dL Total Bilirubin 0.3 (0.2-1.0) mg/dL AST 23 (10-42) IU/L ALT 21 (10-60) IU/L Alkaline Phosphatase 100 (42-121) IU/L Total Protein 5.6 L (6.7-8.2) g/dL Albumin 2.2 L (3.2-5.5) g/dL Globulin 3.4 (2.1-4.2) g/dL Albumin/Globulin Ratio 0.6 L (1.0-2.2) ABX Reporting Has patient been on IV antibiotics over the past 48 hours?: Yes Assessment/Plan - Problem List (1) Cellulitis Impression: Conclusion/Plan: 02/08 pt's infection is better controlled. WBC is normal. Preliminary blood culture is negative continue antibiotics 02/07 pt's erythema, swelling, and pain all improved per pt state IV vancomycin and IV ceftriaxone Gentle IV hydration Wound care follow up blood culture Patient appears to have cellulitis of her right upper extremity presenting with a low-grade fever and subjective fevers at home. She does have leukocytosis with a WBC of 16.7. The patient's cellulitis appears to be progressing quite rapidly and is extensive. She has multiple comorbidities including severe debility with very limited mobility and is bedbound. It appears that patient's cellulitis would likely best respond to IV antibiotics at this time. Patient has had multiple episodes of cellulitis in the past. The patient also has extensive areas of erythema throughout her back, buttocks and bilateral lower extremities. Some of this has excoriations and appears more to be chronic wound and likely fungal in nature. Plan: IV vancomycin and IV ceftriaxone Gentle IV hydration Wound care Nystatin powder for erythema on wounds and in the folds likely fungal Monitor for fevers and leukocytosis Follow-up blood cultures (2) UTI (urinary tract infection) Conclusion/Plan: 02/08 UA culture is pending continue Rocephin 02/07 continue IV ceftriaxone Change Estevez catheter, and continue estevez care Follow-up urine The patient has an indwelling Estevez catheter with chronic urinary tract infections. On presentation the patient has a low-grade fever with a leukocytosis of 16.7. She does not have any elevated lactic acid. She does appear to be somewhat dehydrated with a sodium of 131 and chloride of 94. The patient's urine analysis shows positive nitrite, large leukocyte esterase greater than 25 WBCs and moderate bacteria concerning for urinary tract infection. Plan: IV ceftriaxone Change Estevez catheter Follow-up urine and blood cultures (3) CHF (congestive heart failure), Conclusion/Plan: 02/08 ECHO reveals 45-50%. 97% sats on room air continue metoprolol and spironolactone 02/07 check with ECHO, will follow up continued on her home doses of metoprolol and spironolactone. 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 The patient's last echocardiogram in our system is from 2015 and at that time she was found to have a ejection fraction of 20-25%. Given her history of congestive heart failure we will only give her gentle hydration although she does appear to be dehydrated with a sodium of 131 secondary to ongoing infections. The patient will be continued on her home doses of metoprolol and spironolactone. We will hold her Lasix for now as she does appear dehydrated. (4) Atrial fibrillation Conclusion/Plan: 02/07 Continue patient on metoprolol and digoxin for rate control, coumadin, check INR daily Patient has a history of atrial fibrillation which appears to be rate controlled with metoprolol and digoxin. The patient is on chronic Coumadin. The patient's INR is 1.5 which is slightly subtherapeutic. Plan: Continue patient on metoprolol and digoxin for rate control Continue patient's Coumadin and monitor INR daily (5) Chronic pain Conclusion/Plan: The patient has a history of chronic pain. She states that her pain is all over in her joints. She states that her pain is secondary to osteoarthritis and rheumatoid arthritis. The patient is maintained on a fentanyl patch 25 mcg and oxycodone 5 mg twice daily along with Tylenol for her pain. The patient is followed by palliative care at home. She will be continued on her home regimen for her pain while she is hospitalized. (6) Hyponatremia Conclusion/Plan: resolved Na is still on 131, continue IVF of NS, daily lab monitor Patient sodium is 131 on presentation. The patient appears to have hypovolemic hyponatremia she does appear to be dry on examination. Patient has a history of congestive heart failure with systolic dysfunction. We will give the patient IV fluid but will give only gentle hydration. We will give her 1 L of fluid and monitor closely for any CHF exacerbation. We will monitor the patient 's sodium. (7) COPD (chronic obstructive pulmonary disease) Conclusion/Plan: Patient is a history of hyperlipidemia and he is on patient has a history of COPD/asthma. Although she states that she has never been a drinker. She likely also has some obesity hypoventilation syndrome given her obesity. The patient does have a history of obstructive sleep apnea but is not on CPAP. The patient currently does not appear to be short of breath and is not hypoxic. We will place the patient on duo nebs as needed while she is hospitalized. (8) Peripheral neuropathy Conclusion/Plan: Patient is a history of peripheral neuropathy and takes gabapentin at home. Patient will be continued on gabapentin while she is hospitalized. (9) Depression Conclusion/Plan: The patient has a history of depression and is on Effexor, Zyprexa and trazodone at home. We will continue these medications while she is hospitalized. The patient currently appears to be in a stable mood. Qualifiers: Site of cellulitis: extremity Site of cellulitis of extremity: upper extremity Laterality: right Qualified Code(s): L03.113 - Cellulitis of right upper limb
[2018-02-08] MEDS: cefTRIAXone 1 GM in SODIUM CHLORIDE 0.9% MINIBAG 100 ML IV SCH (17:02)
[2018-02-08 19:55] LABS: VANCOMYCIN,TROUGH 18.1 ug/mL (10.0-20.0)
[2018-02-08] MEDS: traZODone 50 MG TABLET PO SCH (22:19)
[2018-02-08] MEDS: WARFARIN 1 MG TABLET PO SCH (22:19)
[2018-02-08] MEDS: fentaNYL 25 MCG PATCH TOP SCH (22:33)
[2018-02-08] MEDS ORDERED: oxyCODONE 5 MG TABLET PO SCH (23:08)
[2018-02-09] MEDS: SODIUM CHLORIDE FLUSH 0.9% 10 ML SYRINGE IVP SCH ×2 (04:10→08:23)
[2018-02-09] MEDS ORDERED: SODIUM CHLORIDE 0.9% 500 ML IV ONE (04:31)
[2018-02-09 05:46] LABS: BASOPHILS % (AUTO) 0.5 %; EOSINOPHILS # (AUTO) 0.3 10^3/uL (0.0-0.7); EOSINOPHILS % (AUTO) 2.8 %; HGB - HEMOGLOBIN 10.7 g/dL (12.0-16.0); LYMPHOCYTES # (AUTO) 0.9 10^3/uL (1.5-3.5); LYMPHOCYTES % (AUTO) 10.7 %; MEAN CORPUSCULAR HEMOGLOBIN 30.8 pg (27.0-31.0); MEAN CORPUSCULAR HGB CONC 33.4 g/dL (32.0-36.0); MEAN CORPUSCULAR VOLUME 92.3 fL (81.0-99.0); MEAN PLATELET VOLUME 6.8 fL (7.9-10.8); MONOCYTES # (AUTO) 0.6 10^3/uL (0.0-1.0); MONOCYTES % (AUTO) 6.2 %; NEUTROPHILS % (AUTO) 79.8 %; PLT - PLATELET COUNT 346 10^3/uL (130-450); RED BLOOD COUNT 3.48 10^6/uL (4.20-5.40); RED CELL DISTRIBUTION WIDTH 14.2 % (12.0-15.0); WHITE BLOOD COUNT 8.8 x10^3/uL (4.8-10.8)
[2018-02-09 05:51] LABS: INR 1.7 (0.8-1.2); PT - PROTHROMBIN TIME 18.6 secs (9.9-12.6)
[2018-02-09 05:53] LABS: ALBUMIN 2.2 g/dL (3.2-5.5); ALBUMIN/GLOBULIN RATIO 0.6 (1.0-2.2); BILIRUBIN,TOTAL 0.3 mg/dL (0.2-1.0); CALCIUM 8.5 mg/dL (8.5-10.3); CREATININE 0.6 mg/dL (0.4-1.0); TOTAL PROTEIN 5.6 g/dL (6.7-8.2)
[2018-02-09] MEDS: oxyCODONE 5 MG TABLET PO PRN (06:02)
[2018-02-09] MEDS: PANTOPRAZOLE 40 MG TABLET PO SCH (06:02)
[2018-02-09] MEDS: VANCOMYCIN INJ 1 GM in SODIUM CHLORIDE 0.9% 250 ML IV SCH (08:22)
[2018-02-09] MEDS: GABAPENTIN 300 MG CAPSULE PO SCH (08:22)
[2018-02-09] MEDS: DIGOXIN 125 MCG TABLET PO SCH (08:22)
[2018-02-09] MEDS: OLANZapine ODT 5 MG TABLET TL SCH (08:22)
[2018-02-09] MEDS: SPIRONOLACTONE 25 MG TABLET PO SCH (08:22)
[2018-02-09] MEDS: SACCHAROMYCES BOULARDII 250 MG CAPSULE PO SCH (08:22)
[2018-02-09] MEDS: METOPROLOL SUCCINATE 25 MG TABLET PO SCH (08:22)
[2018-02-09] MEDS: VENLAFAXINE 37.5 MG TABLET PO SCH (08:22)
[2018-02-09] MEDS: POLYETHYLENE GLYCOL 3350 17 GM PACKET PO SCH (08:23)
[2018-02-09] MEDS: NYSTATIN POWDER 15 GM TOP SCH (08:23)
[2018-02-09] MEDS: ACETAMINOPHEN 325 MG TABLET PO PRN ×2 (10:24→16:26)
--- NOTE | 2018-02-09 12:17 | Discharge Plan ---
Discharge Plan Disposition: Home, Self Care Condition: Poor Prescriptions: Clindamycin [Cleocin] 300 mg PO Q6H 7 Days #28 capsule Saccharomyces Boulardii [Florastor] 250 mg PO BID #14 capsule Diet: Regular Activity Restrictions: Activity as Tolerated Shower Restrictions: No (fall precaution) Instruction Topics: Cellulitis Dc, Clindamycin capsules Additional Instructions or Follow Up instructions: you may follow up your PCP in one week. CLindamycin is prescribed to treat your cellulitis. Should your symptoms return or worsen, you may present ER or call 911 for help. No Smoking: If you smoke, Please STOP! Call for help.
--- NOTE | 2018-02-09 12:26 | DISCHARGE SUMMARY ---
Discharge Summary Discharge Date: 02/09/18 Discharging Provider: RAE Condition at Discharge: Poor Discharge Disposition: 01 Home, Self Care Discharge Facility Name: home - DIAGNOSES Admission Diagnoses: (1) Cellulitis (2) UTI (urinary tract infection) (3) CHF (congestive heart failure), NYHA class III (4) Atrial fibrillation (5) Chronic pain (6) Hyponatremia (7) COPD (chronic obstructive pulmonary disease) (8) Peripheral neuropathy (9) Depression Discharge Diagnoses with Status of Each Condition: (1) Cellulitis no erythema, warm after treatment. Swelling is as the chronic lymphedema as her baseline. WBC is normal. today is pt's birthday, she strongly request to be d/c today. continue antibiotics to finish the antibiotics course. (2) UTI (urinary tract infection) UA culture reveals it is contaminated. continue antibiotics course (3) CHF (congestive heart failure), NYHA class III stable (4) Atrial fibrillation stable (5) Chronic pain stable (6) Hyponatremia resolved (7) COPD (chronic obstructive pulmonary disease) stable (8) Peripheral neuropathy stable (9) Depression stable - HPI History of Present Illness: refer from Dr. Suresh's HPI as the following: Patient is a 72-year-old female with a past medical history significant for alcoholic cardiomyopathy, obesity, hypertension, chronic venous stasis, asthma, COPD, osteoarthritis, rheumatoid arthritis, chronic pain secondary to arthritis, peripheral vascular disease, hyperlipidemia, history of breast cancer, obstructive sleep apnea not on CPAP, depression and severe debility currently bedbound previously on hospice but currently on palliative care who presents to the emergency department with right upper extremity swelling redness and pain. The patient states that she has had more than 20 cases of cellulitis in her lifetime and states that this most recent episode started about 5 days ago. She states that initially started with swelling and redness of her right hand and then progressed with increasing swelling turning into pain throughout her right arm. She states that it then spread into her back, buttocks and bilateral legs. She states that she felt warm and broke out into sweats several times over the last day. She states that she never checked her temperature at home but assumes that she had a fever. She has not taken any antibiotics over the last 5 days. She states that today she had a visiting home health nurse who assessed her redness and swelling and sent her to the emergency department. She denies any chills. The patient states that she has had a indwelling Adams catheter for the last 7 or 8 months as she was having a difficult time eating up to go to the bathroom and her was having a difficult time helping her. She does have history of urinary tract infections but denies having had any urinary symptoms over the last couple days. She denies any abdominal pain. She also denies any nausea or vomiting. She denies any flank pain. Patient denies any headaches, blurred vision, runny nose, sore throat, nasal congestion, difficulty swallowing, chest pain, shortness of air, orthopnea, PND , diarrhea, neck stiffness, hair loss, changes in her appetite, recent unintentional weight loss, night sweats or any focal neurologic deficits. On presentation to the emergency department the patient had a low-grade temperature of 37.6 but was otherwise hemodynamically stable. The patient's lab work revealed a leukocytosis of 16.7 with a normal lactic acid. The patient did have some mild hyponatremia with a sodium of 131. The patient's urine analysis revealed positive nitrites, large leukocyte esterase and greater than 25 WBCs with moderate bacteria. The patient did have significant cellulitis on her right upper extremity as well as on her right and left lower back, buttocks and on bilateral legs. With this extensive cellulitis and leukocytosis in the setting of a urinary tract infection with the patient's multiple comorbidities it was felt that the patient would be best off receiving IV antibiotics and admitted to the hospital. The patient was admitted to the [facility] for further treatment. - ALLERGIES Allergies/Adverse Reactions: Allergies Allergy/AdvReac Type Severity Reaction Status Date / Time penicillin G Allergy Intermediate Unknown Verified 02/06/18 15:39 Sulfa (Sulfonamide Allergy Intermediate Rash Verified 02/06/18 15:39 Antibiotics) dyazides Allergy Intermediate Unknown Uncoded 02/06/18 15:39 - MEDICATIONS Home Medications: Ambulatory Orders Medication Instructions Recorded Confirmed Venlafaxine [Effexor] 75 mg PO DAILY 07/10/13 02/07/18 Furosemide [Lasix] 40 mg PO DAILY 12/28/15 02/07/18 Gabapentin 300 mg PO BID 12/28/15 02/07/18 Omeprazole [PriLOSEC] 20 mg PO DAILY PRN 12/28/15 02/07/18 Metoprolol Succinate 12.5 mg PO DAILY 07/27/16 02/07/18 Spironolactone 12.5 mg PO DAILY 07/27/16 02/07/18 Digoxin 125 mcg PO DAILY 09/08/17 02/07/18 Ipratropium/Albuterol Sulfate 1 unit INH BID PRN 09/08/17 02/07/18 [Iprat-Albut 0.5-3(2.5) mg/3 ml] Oxycodone HCl 5 mg PO BID PRN MDD use for 09/08/17 02/07/18 breakthrough pain only Docusate Sodium 100 mg PO DAILY PRN 10/13/17 02/07/18 Nystatin 1 applic TP BID 10/13/17 02/07/18 Oxybutynin Chloride 5 mg PO BID PRN MDD bladder spasms 10/13/17 02/07/18 Warfarin Sodium 4 mg PO DAILY 10/13/17 02/07/18 traZODone [Desyrel] 25 - 50 mg PO .QHS PRN 11/09/17 02/07/18 OLANZapine [Zyprexa] 5 mg PO BID 11/15/17 02/07/18 Senna [Senokot] 1 - 2 tab PO DAILY PRN 01/10/18 02/07/18 fentaNYL [Fentanyl 25mcg patch] 25 mcg TD Q72H 01/10/18 02/07/18 Clindamycin [Cleocin] 300 mg PO Q6H 7 Days #28 capsule 02/09/18 Saccharomyces Boulardii [Florastor] 250 mg PO BID #14 capsule 02/09/18 - PHYSICAL EXAM AT DISCHARGE General Appearance: positive: No acute distress, Alert. negative: Lethargic Eyes Bilateral: positive: Normal inspection, PERRL, No lid inflammation, Conjunctivae nml ENT: positive: ENT inspection nml, Pharynx nml, No signs of dehydration. negative: Purulent nasal drainage, Pharyngeal erythema, Oral lesions Neck: positive: Nml inspection, Thyroid nml, No JVD, Trachea midline. negative : Thyromegaly, Lymphadenopathy (R), Lymphadenopathy (L), Stiff neck, Swelling/ bruising, Tracheal deviation Respiratory: positive: Chest non-tender, No respiratory distress, Breath sounds nml. negative: Wheezes, Rales, Rhonchi Cardiovascular: positive: Regular rate & rhythm, No murmur, No gallop. negative : Irregularly irregular, Extrasystoles, Tachycardia, Bradycardia, JVD present, Systolic murmur, Diastolic murmur Peripheral Pulses: positive: 2+ Abdomen: positive: Non-tender, No organomegaly, Nml bowel sounds, No distention. negative: Tenderness, Guarding, Rebound Back: positive: Nml inspection. negative: CVA tenderness (R), CVA tenderness (L ) Skin: positive: Color nml, No rash, Warm, Dry. negative: Cyanosis, Diaphoresis , Pallor, Skin rash Extremities: positive: Non-tender, Full ROM, Nml appearance. negative: Calf tenderness, Joint swelling, Dickson's sign/cords Neurologic/Psychiatric: positive: Oriented x3, Motor nml, Sensation nml, Mood/ affect nml. negative: Weakness, Sensory loss, Facial droop, Slurred/abnml speech, Depressed mood/affect - LABS Result Diagrams: 02/09/18 05:20 02/09/18 05:20 - FOLLOW UP Follow Up: you may follow up your PCP in one week. Should your symptoms return or worsen, you may present ER or call 911 for help. - TIME SPENT Time Spent in Discharge (Minutes): 50
[2018-02-09 17:50] VITALS: BP 138/65
== END 2018-02-09 17:15 | disposition home or self-care (01) | DRG 603 ==
LOC: ED 15:32 → MS2 20:14
PROVIDERS: ADMIT Internal Medicine; ATTEND Nurse Practitioner Gerontology
DX: L03.113 Cellulitis of right upper limb (principal); T83.511A Infection and inflammatory reaction due to indwelling urethral catheter, initial encounter; N39.0 Urinary tract infection, site not specified; L03.312 Cellulitis of back [any part except buttock and flank]; L03.317 Cellulitis of buttock; L98.8 Other specified disorders of the skin and subcutaneous tissue; L03.116 Cellulitis of left lower limb; L03.115 Cellulitis of right lower limb; I11.0 Hypertensive heart disease with heart failure; I50.9 Heart failure, unspecified; E87.1 Hypo-osmolality and hyponatremia; I48.91 Unspecified atrial fibrillation; J44.9 Chronic obstructive pulmonary disease, unspecified; I42.6 Alcoholic cardiomyopathy; I50.22 Chronic systolic (congestive) heart failure; I89.0 Lymphedema, not elsewhere classified; G62.9 Polyneuropathy, unspecified; F32.9 Major depressive disorder, single episode, unspecified; I87.8 Other specified disorders of veins; M06.9 Rheumatoid arthritis, unspecified; I73.9 Peripheral vascular disease, unspecified; E78.5 Hyperlipidemia, unspecified; G47.33 Obstructive sleep apnea (adult) (pediatric); G47.30 Sleep apnea, unspecified; I10 Essential (primary) hypertension; K21.9 Gastro-esophageal reflux disease without esophagitis; R33.9 Retention of urine, unspecified; R32 Unspecified urinary incontinence; S30.810A Abrasion of lower back and pelvis, initial encounter; S70.312A Abrasion, left thigh, initial encounter; S70.311A Abrasion, right thigh, initial encounter; X58.XXXA Exposure to other specified factors, initial encounter; Y84.6 Urinary catheterization as the cause of abnormal reaction of the patient, or of later complication, without mention of misadventure at the time of the procedure; E86.0 Dehydration; M19.90 Unspecified osteoarthritis, unspecified site; E86.1 Hypovolemia; E66.01 Morbid (severe) obesity due to excess calories; J43.9 Emphysema, unspecified; I48.2 Chronic atrial fibrillation; G89.4 Chronic pain syndrome; F10.21 Alcohol dependence, in remission; Z66 Do not resuscitate; Z51.5 Encounter for palliative care; Z74.01 Bed confinement status; Z86.14 Personal history of Methicillin resistant Staphylococcus aureus infection; Z68.38 Body mass index [BMI] 38.0-38.9, adult; Z88.0 Allergy status to penicillin; Z88.2 Allergy status to sulfonamides; Z79.899 Other long term (current) drug therapy; Z79.891 Long term (current) use of opiate analgesic; Z85.3 Personal history of malignant neoplasm of breast; Z79.01 Long term (current) use of anticoagulants
CPT/HCPCS: 36415; 80053; 80202; 81001; 81003; 83605; 83690; 83880; 85025; 85610; 87040; 87086; 87640; 93306; 94640; 96365; 96366; 96375; 99284

== ENCOUNTER 2018-02-09 17:28 | Outpatient (CLI) | payer MEDICARE | END 2018-02-09 17:29 | disposition home or self-care (01) | LOC: EMS 17:28 | PROVIDERS: ATTEND Surgery | DX: L03.119 Cellulitis of unspecified part of limb (principal); E66.01 Morbid (severe) obesity due to excess calories; Z74.01 Bed confinement status; J44.9 Chronic obstructive pulmonary disease, unspecified; I50.9 Heart failure, unspecified | CPT/HCPCS: A0425; A0428 ==

== ENCOUNTER 2018-02-12 13:15 | Outpatient (CLI) | payer MEDICARE | END 2018-02-12 23:59 | disposition home or self-care (01) | LOC: LAB.R 13:15 | PROVIDERS: ATTEND Internal Medicine | DX: I48.91 Unspecified atrial fibrillation (principal) | CPT/HCPCS: 85610; 85730 ==

== ENCOUNTER 2018-02-13 16:01 | Outpatient (CLI) | payer MEDICARE | END 2018-02-13 16:02 | disposition critical access hospital (66) | LOC: EMS 16:01 | PROVIDERS: ATTEND Surgery | DX: M54.2 Cervicalgia (principal); W01.0XXA Fall on same level from slipping, tripping and stumbling without subsequent striking against object, initial encounter; Y92.003 Bedroom of unspecified non-institutional (private) residence as the place of occurrence of the external cause | CPT/HCPCS: A0425; A0429 ==

== ENCOUNTER 2018-02-13 16:43 | Emergency (ER) | payer MEDICARE ==
--- NOTE | 2018-02-13 16:53 | ED Physician Documentation ---
PD HPI NECK PAIN - Stated complaint Stated Complaint: NECK PX - History obtained from History obtained from: Patient - History of Present Illness Timing - onset: Today (She was trying to go to the bathroom and due to her weakness had a fall while transferring and slumped and got wedged between the wall and the toilet. She did hit her head and also said her neck was bent in an awkward position. She had pain in her lower back. Her called EMS and they were able to get her out of that position and brought her here for evaluation. She denies any loss of consciousness. 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 She is being followed by palliative care. She has not been doing well at home with some pressure sores on her back and has been a unable to get out of bed and she felt today as her was trying to assist her in the bathroom. They are deciding now to go to [facility] for rehab care. The palliative care provider is notified and present here in the department and evaluates them. [facility] is not able to take a new patient given the hour of the day and we will get her there tomorrow morning.) Review of Systems Constitutional: denies: Fever Nose: denies: Rhinorrhea / runny nose, Congestion Throat: denies: Sore throat Cardiac: denies: Chest pain / pressure, Palpitations Respiratory: denies: Dyspnea, Cough GI: denies: Abdominal Pain, Vomiting, Diarrhea Skin: reports: Lesions (has redness and pressure sores on lower back and gluteals the past several days.) Neurologic: reports: Generalized weakness, Head injury. 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, Breast cancer : None, Retention, Incontinence, Indwelling catheter HEENT: Other Psych: Depression, Claustrophobia Musculoskeletal: Osteoarthritis, Rheumatoid arthritis, Chronic back pain Derm: Other drug resistant infections - Past Surgical History Past Surgical History: Yes General: Colonoscopy Ortho: Other /OILING MACHINE OPERATOR: Hysterectomy, Mastectomy HEENT: Cataracts, Tonsil/Adenoidectomy - Present Medications Home Medications: Ambulatory Orders Medication Instructions Recorded Confirmed Venlafaxine [Effexor] 75 mg PO DAILY 07/10/13 02/07/18 Furosemide [Lasix] 40 mg PO DAILY 12/28/15 02/07/18 Gabapentin 300 mg PO BID 12/28/15 02/07/18 Omeprazole [PriLOSEC] 20 mg PO DAILY PRN 12/28/15 02/07/18 Metoprolol Succinate 12.5 mg PO DAILY 07/27/16 02/07/18 Spironolactone 12.5 mg PO DAILY 07/27/16 02/07/18 Digoxin 125 mcg PO DAILY 09/08/17 02/07/18 Ipratropium/Albuterol Sulfate 1 unit INH BID PRN 09/08/17 02/07/18 [Iprat-Albut 0.5-3(2.5) mg/3 ml] Oxycodone HCl 5 mg PO BID PRN MDD use for 09/08/17 02/07/18 breakthrough pain only Docusate Sodium 100 mg PO DAILY PRN 10/13/17 02/07/18 Nystatin 1 applic TP BID 10/13/17 02/07/18 Oxybutynin Chloride 5 mg PO BID PRN MDD bladder spasms 10/13/17 02/07/18 Warfarin Sodium 4 mg PO DAILY 10/13/17 02/07/18 traZODone [Desyrel] 25 - 50 mg PO .QHS PRN 11/09/17 02/07/18 OLANZapine [Zyprexa] 5 mg PO BID 11/15/17 02/07/18 Senna [Senokot] 1 - 2 tab PO DAILY PRN 01/10/18 02/07/18 fentaNYL [Fentanyl 25mcg patch] 25 mcg TD Q72H 01/10/18 02/07/18 Clindamycin [Cleocin] 300 mg PO Q6H 7 Days #28 capsule 02/09/18 Saccharomyces Boulardii [Florastor] 250 mg PO BID #14 capsule 02/09/18 - Allergies Allergies/Adverse Reactions: Allergies Allergy/AdvReac Type Severity Reaction Status Date / Time penicillin G Allergy Intermediate Unknown Verified 02/13/18 16:56 Sulfa (Sulfonamide Allergy Intermediate Rash Verified 02/13/18 16:56 Antibiotics) dyazides Allergy Intermediate Unknown Uncoded 02/13/18 16:56 - Social History Does the pt smoke?: No Smoking Status: Never smoker Does the pt drink ETOH?: No Does the pt have substance abuse?: No - Immunizations Immunizations are current?: Yes - POLST Patient has POLST: Yes POLST Status: DNR PD ED PE NORMAL - Vitals Vital signs reviewed: Yes - General General: Alert and oriented X 3, Well developed/nourished - HEENT HEENT: Moist mucous membranes, Pharynx benign, Other (mild tenderness right occipital area) - Neck Neck: Supple, no meningeal sign, No adenopathy, Other (some tender lower neck muscles, with ROM spontaneously without significant pain.) - Cardiac Cardiac: RRR, No murmur - Respiratory Respiratory: Clear bilaterally - Abdomen Abdomen: Soft, Non tender, Other (obese truncal) - Female Female : Other (estevez cath in place.) - Back Back: No CVA TTP, Other (tender in thoracolumbar area nonfocally. Diffuse redness of skin low back and buttocks. Few small areas of skin breakdown. No purulence. ) - Derm Derm: Warm and dry - Extremities Extremities: No edema, Other (small effusion right knee; with tenderness. Arthritic changes noted of both knees. ) - Neuro Neuro: Alert and oriented X 3, education dean 2-12 intact, No motor deficit, No sensory deficit, Normal speech Eye Opening: Spontaneous Motor: Obeys Commands Verbal: Oriented GCS Score: 15 Results - Vitals Vitals: Vital Signs - 24 hr 02/13/18 02/13/18 16:52 19:20 Temperature 36.9 C Heart Rate 100 72 Respiratory 20 17 Rate Blood Pressure 147/100 H 147/48 H O2 Saturation 100 95 Oxygen O2 Source [With Activity] Room air O2 Source [Without Activity] Room air O2 Source Room air - Labs Labs: Laboratory Tests 02/13/18 18:40 Whole Blood INR 2.7 H - Rads (name of study) head CT Radiology: Prelim report reviewed (negative) cervical CT Radiology: Prelim report reviewed (arthritic changes, no fractures) thoracolumbar CT Radiology: Prelim report reviewed (T11 compression fracture of uncertain chronicity. Prior changes noted (spondylolisthesis). ) right knee xray Radiology: Prelim report reviewed (trimcompartment arthritis, no fractures. ) PD MEDICAL DECISION MAKING - ED course Complexity details: re-evaluated patient (She is improved getting off the backboard, and with IM meds. No IV started. She is looking okay otherwise. ), considered differential, d/w patient, d/w PMD (Discussed with palliative care provider he will be writing orders for the patient to go to [facility] in the morning. [employer] work Kassie reviewed the recent history and the patient does qualify for a rehab care at [facility]. Your CT scans did not show any signs of bleeding intracranially or other organ injury. There is a mild T11 compression fracture seen which is not clearly new but given the location of her back pain after the fall today might be a new fracture. The patient is comfortable now here after p.o. medicines. She does not clearly have admission criteria. She will be boarding in the ER until she can get to [facility] tomorrow as the are not taking any admissions at their facility after 5 PM today.) - Sepsis Event Vital Signs: Vital Signs - 24 hr 02/13/18 02/13/18 16:52 19:20 Temperature 36.9 C Heart Rate 100 72 Respiratory 20 17 Rate Blood Pressure 147/100 H 147/48 H O2 Saturation 100 95 Oxygen O2 Source [With Activity] Room air O2 Source [Without Activity] Room air O2 Source Room air Departure - Departure Clinical Impression: Generalized weakness, Decubitus ulcer of back, stage 1, Anticoagulant long-term use Traumatic compression fracture of T11 thoracic vertebra Qualifiers: Encounter type: initial encounter Fracture type: closed Qualified Code(s): S22.080A - Wedge compression fracture of T11-T12 vertebra, initial encounter for closed fracture Fall, accidental Qualifiers: Encounter type: initial encounter Qualified Code(s): W19.XXXA - Unspecified fall, initial encounter Head contusion Qualifiers: Encounter type: initial encounter Contusion of head detail: scalp Qualified Code(s): S00.03XA - Contusion of scalp, initial encounter Condition: Stable Record reviewed to determine appropriate education?: Yes Instructions: ED Fx Comp Vertebral
[2018-02-13] MEDS ORDERED: MORPHINE 10 MG/ML VIAL IM STA (17:11)
--- NOTE | 2018-02-13 18:33 | CT Report ---
Reason: fall in bathroom; hit head Procedure Date: 02/13/2018 Accession Number: [id number] / [id number] Procedure: CT - Head W/O CPT Code: FULL RESULT: EXAM: CT HEAD EXAM DATE: 02/13/2018 05:47 PM. CLINICAL HISTORY: Fall in bathroom; hit head. COMPARISON: HEAD W/O 03/01/2017. TECHNIQUE: Multiaxial CT images were obtained from the foramen magnum to the vertex. Reformats: Sagittal and coronal. IV contrast: None. In accordance with CT protocol optimization, one or more of the following dose reduction techniques were utilized for this exam: automated exposure control, adjustment of mA and/or KV based on patient size, or use of iterative reconstructive technique. FINDINGS: Parenchyma: There is mild periventricular white matter hypodensity. Negative for intracranial hemorrhage. No midline shift or mass-effect. Extraaxial Spaces: Normal for age. No subdural or epidural collections identified. Ventricles: Normal in size and position. Sinuses and Orbits: Imaged paranasal sinuses, orbits, and mastoids show no significant abnormality. Bones: No evidence of fracture or calvarial defect. Other: None. IMPRESSION: 1. Negative for acute or focal intracranial abnormality by noncontrast CT. RADIA
--- NOTE | 2018-02-13 18:36 | CT Report ---
Reason: fell bathroom; hit head/ has neck pain Procedure Date: 02/13/2018 Accession Number: [id number] / [id number] Procedure: CT - Cervical Spine W/O CPT Code: FULL RESULT: EXAM: CT CERVICAL SPINE WITHOUT CONTRAST DATE: 02/13/2018 05:47 PM. HISTORY: Fell bathroom; hit head/ has neck pain. COMPARISONS: HEAD W/O 03/01/2017. TECHNIQUE: Thin-section axial images were acquired of the cervical spine without contrast. Post-processing: Coronal and sagittal reformats. Other: None. In accordance with CT protocol optimization, one or more of the following dose reduction techniques were utilized for this exam: automated exposure control, adjustment of mA and/or KV based on patient size, or use of iterative reconstructive technique. FINDINGS: Alignment: No subluxation or scoliosis. Bones: No fracture. There is multilevel degenerative disk and endplate disease. Interspace Levels/Facets: There is anterior disk osteophyte spurring from C4-T1. There is generalized diffuse facet joint space narrowing and spurring from C4-T1. Musculature: No paravertebral hematoma. Other: There is right apical pleural parenchymal scarring. There is a calcification in the right thyroid lobe. No apical pneumothorax. IMPRESSION: 1. Negative for fracture and subluxation. 2. Chronic degenerative disk and facet disease of the cervical spine. RADIA
--- NOTE | 2018-02-13 18:45 | CT Report ---
Reason: fell bathroom; pain low back Procedure Date: 02/13/2018 Accession Number: [id number] / [id number] Procedure: CT - Lumbar Spine W/O CPT Code: FULL RESULT: EXAM: CT LUMBAR SPINE WITHOUT CONTRAST EXAM DATE: 02/13/2018 06:13 PM. CLINICAL HISTORY: Fell bathroom; pain low back. COMPARISONS: LUMBAR SPINE 2 VIEW 10/24/2016 11:19 AM. TECHNIQUE: Thin-section axial images were acquired of the lumbar spine from T12 to S1 without contrast. Post-processing: Coronal and sagittal reformats. Other: None. In accordance with CT protocol optimization, one or more of the following dose reduction techniques were utilized for this exam: automated exposure control, adjustment of mA and/or KV based on patient size, or use of iterative reconstructive technique. FINDINGS: Alignment: There is grade 1 anterolisthesis of L4 on L5 of 9 mm, stable. Bones: Five mid-eid-khjvlja lumbar vertebral bodies are present. No acute displaced fractures. New moderate compression deformity of T11 and stable moderate compression deformity of L5. Redemonstration of severe multilevel degenerative disk disease, worse from L2-L4 with severe narrowing, sclerosis, and osteophytes. There is severe spinal canal narrowing by calcified posterior disk bulge at L2-L3. Musculature: Unremarkable Other: The visualized retroperitoneum is unremarkable. IMPRESSION: Age-indeterminate new moderate compression deformity of T11. Correlation as to point tenderness and pain. No acute lumbar spine fracture. Redemonstration of grade 1 anterolisthesis of L4 on L5. Severe spinal canal narrowing at L2-L3 by calcified posterior disk bulge. RADIA
--- NOTE | 2018-02-13 18:46 | XRAY Report ---
Reason: fell bathroom; landed on right knee Procedure Date: 02/13/2018 Accession Number: [id number] / [id number] Procedure: XR - Knee 3 View RT CPT Code: FULL RESULT: EXAM: RIGHT KNEE RADIOGRAPHY EXAM DATE: 02/13/2018 06:29 PM. CLINICAL HISTORY: Fell bathroom; landed on right knee. COMPARISON: KNEE 4 VIEW RT 09/17/2015. TECHNIQUE: 3 views. FINDINGS: Bones: No fracture identified. Periarticular osteopenia. Joints: Severe medial compartment joint space narrowing. Mild lateral subluxation of the tibial plateau. Moderate patellofemoral joint space narrowing. Tricompartmental marginal osteophytes. Minimal fluid in the suprapatellar recess. Soft Tissues: Unremarkable. IMPRESSION: 1. Tricompartmental osteoarthritis, severe in the medial compartment. RADIA
--- NOTE | 2018-02-13 18:54 | CT Report ---
Reason: fell bathroom; struck anterior chest Procedure Date: 02/13/2018 Accession Number: [id number] / [id number] Procedure: CT - Chest W/O CPT Code: FULL RESULT: EXAM: CT CHEST EXAM DATE: 02/13/2018 05:52 PM. CLINICAL HISTORY: Fell bathroom; struck anterior chest. COMPARISONS: CHEST W/ 10/23/2015. TECHNIQUE: Routine helical CT imaging was performed through the chest. IV contrast: None. Reconstructions: Coronal and sagittal. In accordance with CT protocol optimization, one or more of the following dose reduction techniques were utilized for this exam: automated exposure control, adjustment of mA and/or KV based on patient size, or use of iterative reconstructive technique. FINDINGS: Lungs/Pleura: No nodules, bronchial thickening, consolidation, or edema. Pulmonary vasculature is normal. No pericardial or pleural effusion. No pneumothorax. Previous left upper lobe consolidation has resolved. Right apical pleural thickening noted. Mediastinum: Mild cardiac enlargement. No pericardial effusion or adenopathy. Extensive coronary artery calcifications are noted. Atheromatous calcified and noncalcified plaques noted in the thoracic aorta. No dissection or aneurysm or mediastinal hematoma. Bones: Patient is osteopenic. Severe bilateral glenohumeral joint arthritis. 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 No displaced rib fractures are present. No fracture involving the manubrium or sternum. Visualized Abdomen: Limited evaluation of the upper abdomen is unremarkable. Small incidental hiatal hernia is present. Other: Heterogeneous thyroid gland with coarse right thyroid lobe calcification. 1 cm hypodense left thyroid nodule on image 4. No supraclavicular or axillary adenopathy. Portions of the anterior abdominal wall are excluded from the [id number]. No large chest wall hematoma. IMPRESSION: 1. Interval resolution of the left upper lobe consolidation. No acute pulmonary process. 2. No pneumothorax or effusions. 3. Mild cardiac enlargement with multivessel coronary artery disease. 4. DISH is noted throughout the thoracic spine. No osteoblastic or lytic lesions. No displaced rib fracture. RADIA
[2018-02-14] MEDS ORDERED: oxyCODONE 5 MG TABLET PO STA ×3 (01:57→17:10)
[2018-02-14] MEDS ORDERED: DOCUSATE SODIUM 100 MG CAPSULE PO STA (17:10)
[2018-02-14] MEDS ORDERED: GABAPENTIN 100 MG CAPSULE PO STA (17:10)
[2018-02-14] MEDS ORDERED: PANTOPRAZOLE 40 MG TABLET PO STA (17:11)
[2018-02-14] MEDS ORDERED: FUROSEMIDE 20 MG TABLET PO STA (17:12)
[2018-02-14] MEDS ORDERED: WARFARIN 5 MG TABLET PO STA (17:13)
[2018-02-14] MEDS ORDERED: OLANZapine ODT 5 MG TABLET TL ONE (17:14)
[2018-02-14] MEDS ORDERED: WARFARIN 1 MG TABLET PO STA (17:19)
[2018-02-14] MEDS: OXYBUTYNIN 5MG TABLET PO SCH (17:44)
--- NOTE | 2018-02-14 18:06 | ED Physician Documentation ---
ED Addendum - Addendum Addendum: 02/14/18 18:05 She has been doing okay in bed today here. Social work tried placing her at [facility] but apparently her [employer] insurance was needing approval despite her recent 3 day stay and that did not go through as of time of this afternoon. It is a work in progress and social work will resume the clearance for the insurance tomorrow. The patient was given her usual daily medications here in the department. She had appropriate nursing care and meals. She will be staying here overnight again.
[2018-02-14] MEDS: ACETAMINOPHEN 500 MG TABLET PO SCH (20:04)
[2018-02-14] MEDS ORDERED: fentaNYL 25 MCG PATCH TOP STA (20:15)
[2018-02-14] MEDS ORDERED: traZODone 50 MG TABLET PO SCH (21:00)
[2018-02-15] MEDS: oxyCODONE 5 MG TABLET PO PRN ×3 (02:42→14:43)
[2018-02-15] MEDS ORDERED: FUROSEMIDE 20 MG TABLET PO STA (08:25)
[2018-02-15] MEDS ORDERED: PANTOPRAZOLE 40 MG TABLET PO STA (08:25)
[2018-02-15] MEDS ORDERED: DIGOXIN 125 MCG TABLET PO STA (08:25)
[2018-02-15] MEDS ORDERED: WARFARIN 5 MG TABLET PO STA (08:31)
[2018-02-15] MEDS ORDERED: OLANZapine ODT 5 MG TABLET TL STA (08:32)
[2018-02-15] MEDS ORDERED: WARFARIN 1 MG TABLET PO STA (08:39)
[2018-02-15] MEDS ORDERED: GABAPENTIN 100 MG CAPSULE PO SCH (09:00)
[2018-02-15] MEDS ORDERED: SPIRONOLACTONE 25 MG TABLET PO SCH (09:00)
[2018-02-15] MEDS ORDERED: IPRATROPIUM/ALBUTEROL 3 ML NEB INH SCH (09:00)
[2018-02-15] MEDS ORDERED: NYSTATIN POWDER 15 GM TOP SCH (09:00)
[2018-02-15] MEDS ORDERED: VENLAFAXINE ER 75 MG CAPSULE PO SCH (09:00)
[2018-02-15] MEDS ORDERED: METOPROLOL SUCCINATE 25 MG TABLET PO SCH (09:00)
[2018-02-15] MEDS: OXYBUTYNIN 5MG TABLET PO SCH (09:26)
[2018-02-15] MEDS: ACETAMINOPHEN 500 MG TABLET PO SCH ×2 (09:27→13:07)
[2018-02-15 14:43] VITALS: BP 134/69
--- NOTE | 2018-02-15 16:09 | ED Physician Documentation ---
ED Addendum - Addendum Addendum: 02/15/18 16:08 The patient maintained her usual medication regimen and did get some skin care treatments in the ER. Social work continue to work with [facility] regarding placement. Subsequently they were able to conclude on placement of her in [facility] for ongoing care of her problems that were not able to be cared for adequately at home subsequent to her recent hospitalization. She will be this transferred over to [facility] for ongoing care. Orders are written by the palliative care nurse.
[2018-02-15] MEDS ORDERED: diphenhydrAMINE 25 MG CAPSULE PO SCH (21:00)
== END 2018-02-15 16:34 | disposition home or self-care (01) ==
LOC: EDSEX → EDUNIT# → ED 16:43
DX: R53.1 Weakness (principal); L89.101 Pressure ulcer of unspecified part of back, stage 1; S22.080A Wedge compression fracture of T11-T12 vertebra, initial encounter for closed fracture; S00.03XA Contusion of scalp, initial encounter; W18.39XA Other fall on same level, initial encounter; Y92.002 Bathroom of unspecified non-institutional (private) residence as the place of occurrence of the external cause; I11.0 Hypertensive heart disease with heart failure; I48.92 Unspecified atrial flutter; I73.9 Peripheral vascular disease, unspecified; J44.9 Chronic obstructive pulmonary disease, unspecified; Z79.01 Long term (current) use of anticoagulants; Z96.0 Presence of urogenital implants
CPT/HCPCS: 70450; 71250; 72125; 72131; 73562; 85610; 94640; 99285; A9270; 96372; 99284

== ENCOUNTER 2018-02-15 16:34 | Outpatient (CLI) | payer MEDICARE | END 2018-02-15 16:35 | LOC: EMS 16:34 | PROVIDERS: ATTEND Surgery | DX: M54.9 Dorsalgia, unspecified (principal); M25.559 Pain in unspecified hip | CPT/HCPCS: A0425; A0428 ==

== ENCOUNTER 2018-02-16 10:05 | Outpatient (CLI) | payer MEDICARE ==
--- NOTE | 2018-02-16 16:31 | CONSULTATION NOTE ---
Palliative Care Follow Up - Referral Referring Provider: Hattie Pandey PA-C Time of Visit: 02/16/2018. 10:05 - 10:35 Referral setting: Custodial Facility ([facility]) Referral Reason: Severe incontinence dermatitis; debility - Information Sources Records reviewed: Previous records reviewed History/Review of Systems obtained from: Patient, Family, Nursing Exam limitations: Clinical condition (memory deficits) - History of Present Illness Update Brief HPI Update: -73 year old bedbound female, former Hospice patient, admitted to hospital last week for RUE cellulitis and UTI, discharged home and then sent back to ER a few days later after getting neck/head wedged between the bed and railing, and sev ere case of incontinence dermatitis. 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 coli UTI, now indwelling Estevez catheter. -The patient was recently hospitalized 02/06/18 - 02/09/18 for UTI and cellulitis of RUE (BAO has had severe postmastectomy lymphedema syndrome since 1993). She was treated with IV ceftriaxone and vancomycin and discharged home at her request. -The patient was then sent back to the ER on 02/13/18 due to an accident while her was providing her personal care. The part-time caregiver had just left, and the was changing her briefs when the patient rolled out of bed, her leg "became stuck" and she fell out of bed, with her neck wedged between the mattress and the hand railing. -At just this time, the Home Health RN arrived, and with the help of the spouse, was able to get the patient out of her predicament and on to the floor, where she remained until EMS came. -At this time, the RN was able to photograph the severe case of incontinence dermatitis on the patient's buttocks, which had apparently not been present during her hospitalization the previous week. Note that patient is on a Estevez catheter. -Home health nursing and palliative care strongly recommend transfer to SNF after discharge from ER so patient can get an appropriate level of wound care. -There is also concern about the spouse's capacity to provide adequate and safe caregiving at home. -Today's visit takes place at [facility], where the patient was admitted last evening. Patient's spouse is also present. -Patient reports pain levels are controlled with her normal pain regimen. Her R knee is without pain at present; she reports some tenderness on her right clavicle and neck, but has baseline ROM of neck. -RUE extremity edema is at baseline level. -Medications were reconciled; there were some dosing changes, likely made during her hospital stay. Social History - Living Situation Living arrangement: longterm Support System: Patient has just been admitted to SNF after hospitalization last week, and ER visit this week, with fall/minor neck injury and severe incontinence dermatitis of buttocks. Up to this point patient has lived at home with spouse, and part-time caregiving help. Medications/Allergies - Medications Home Medications: Ambulatory Orders Medication Instructions Recorded Confirmed Venlafaxine [Effexor] 75 mg PO DAILY 07/10/13 02/16/18 Furosemide [Lasix] 40 mg PO DAILY 12/28/15 02/16/18 Gabapentin 300 mg PO BID 12/28/15 02/16/18 Omeprazole [PriLOSEC] 20 mg PO DAILY PRN 12/28/15 02/16/18 Metoprolol Succinate 12.5 mg PO DAILY 07/27/16 02/16/18 Spironolactone 25 mg PO DAILY 07/27/16 02/16/18 Digoxin 125 mcg PO DAILY 09/08/17 02/16/18 Ipratropium/Albuterol Sulfate 1 unit INH BID PRN 09/08/17 02/16/18 [Iprat-Albut 0.5-3(2.5) mg/3 ml] Oxycodone HCl 5 mg PO TID MDD use for 09/08/17 02/16/18 breakthrough pain only Docusate Sodium 100 mg PO DAILY PRN 10/13/17 02/16/18 Nystatin 1 applic TP BID 10/13/17 02/16/18 Oxybutynin Chloride 5 mg PO BID PRN MDD bladder spasms 10/13/17 02/16/18 Warfarin Sodium 4 mg PO DAILY 10/13/17 02/16/18 traZODone [Desyrel] 50 mg PO .QHS PRN 11/09/17 02/16/18 OLANZapine [Zyprexa] 5 mg PO DAILY 11/15/17 02/16/18 Senna [Senokot] 1 - 2 tab PO DAILY PRN 01/10/18 02/16/18 fentaNYL [Fentanyl 25mcg patch] 25 mcg TD Q72H 01/10/18 02/16/18 Clindamycin [Cleocin] 300 mg PO Q6H 7 Days #28 capsule 02/09/18 Saccharomyces Boulardii [Florastor] 250 mg PO BID #14 capsule MDD 02/09/18 02/16/18 until 03/04/18 Clindamycin [Cleocin] 300 mg PO BID MDD Give 6 doses, 02/16/18 02/16/18 for cellulitis OLANZapine [Olanzapine] 2.5 mg PO DAILY 02/16/18 02/16/18 - Allergies Allergies/Adverse Reactions: Allergies Allergy/AdvReac Type Severity Reaction Status Date / Time penicillin G Allergy Intermediate Unknown Verified 02/13/18 16:56 Sulfa (Sulfonamide Allergy Intermediate Rash Verified 02/13/18 16:56 Antibiotics) dyazides Allergy Intermediate Unknown Uncoded 02/13/18 16:56 Review of Systems - Constitutional Constitutional: reports: Fatigue, Fever, Chills, Weight stable. denies: Poor appetite - Ears, Nose & Throat Ears, Nose & Throat: reports: Hearing loss, Postnasal drainage - Cardiovascular Cardiovascular: reports: Other (bedbound) - Respiratory Respiratory: denies: SOB at rest - Gastrointestinal Gastrointestinal: reports: Good appetite. denies: Abdominal pain - Genitourinary Genitourinary: reports: Other (estevez catheter). denies: Dysuria - Musculoskeletal Musculoskeletal: reports: Muscle pain (mild, R side neck), Limited range of motion, Muscle weakness, Transfer issues (bedbound). denies: Joint pain (no complaints of pain currently; R knee is without pain) - Neurological Neurological: reports: Memory problems - Psychiatric Psychiatric: reports: Anxiety (chronic) Physical Exam - Vital Signs Temperature: 96.8 F Pulse Rate: 73 O2 Saturation: 95 (room air) Blood Pressure: 150/72 (wrist cuff) - Physical Exam General Appearance: positive: No acute distress, Alert Eyes Bilateral: positive: EOMI, No lid inflammation, Conjunctivae nml, No scleral icterus ENT: positive: Dry mucous membranes Neck: positive: No JVD, Trachea midline Cardiovascular: positive: Regular rate & rhythm, No murmur, Systolic murmur (2/6) Respiratory: positive: No respiratory distress, Diminished in bases Abdomen: positive: Obese Skin: positive: Wound (scabbed round on R [place], healing appropriately) Extremities: positive: Pedal edema (+2 calves), Other (skin pink tone on calves) Neurologic/Psychiatric: positive: Oriented x3, Mood/affect nml Palliative Care - POLST Patient has POLST: Yes POLST Status: DNR, Comfort Measures Pain: Pain unchanged Performance Status: Bedbound Estevez catheter Chronic pain, especially R knee h/o alcoholic cardiomyopathy - Palliative Care Discussion: Patient's POLST has been DNR/comfort care since she was on Hospice earlier in the year, but she has been hospitalized (last week) and in the ER this week. Will speak with patient and her about changes in goals of care. Patient was willing to come to SNF for rehabilitation and wound care. Spouse today asked how long patient will be here and when can she go home. There is concern that the patient will not receive an adequate or safe level of care at home, unless the family can engage more complete caregiver support. The SNF currently does not have a community mental health social worker, so palliative care will work with staff there to help the patient apply for long-term care. It is unclear if they will qualify financially for medicaid. Impression and Recommendations - Palliative Care Impression: -73 year old bedbound female, former Hospice patient, admitted to hospital last week for RUE cellulitis and UTI, discharged home and then sent back to ER a few days later after getting neck/head wedged between the bed and railing, and severe case of incontinence dermatitis. Patient is now at [facility] for therapy and wound care. Palliative care will continue to provide support and monitoring. Recommendations/Counseling Done: Chronic joint pain: Pain currently controlled with Fentanyl 25mcg, gabapentin, and oxycodone 5mg TID as needed, Neck pain from fall: Improved, just mild stiffness. See pain regimen above. Dermatitis rash, buttocks: Severe, acute. At SNF for wound care. Constipation: Continue docusate and senna at the SNF, plus house bowel program Anxiety: Olanzapine decreased back to 2.5mg once a day and 5mg once a day. Agitation and anxiety levels are currently well controlled. Consider increasing it back to 5mg BID if indicated. Cellulitis of RUE: Resolving. Clindamycin 300mg BID for 6 doses, and florestor. Advanced care planning: Patient and spouse agreed to short-stay at SNF. There is concern about spouse's capacity to provide adequate and safe care for patient at home. He has only part-time caregiving currently. Palliative care tea will work with staff at SNF to apply for [employer] care insurance with medicaid. POLST is currently DNR and comfort care; but patient has been in hospital and ER in the past two weeks. Palliative care will follow up with family to redefine goals of care. Follow up next week. Time Spent: 30 minutes were spent with more than 50% of the time spent on counseling, education, and coordination of care.
== END 2018-02-16 10:06 | disposition home or self-care (01) ==
LOC: PC 10:05
PROVIDERS: ATTEND Nurse Practitioner
DX: Z51.5 Encounter for palliative care (principal); G89.29 Other chronic pain; K59.00 Constipation, unspecified; F41.9 Anxiety disorder, unspecified; I42.6 Alcoholic cardiomyopathy; J44.9 Chronic obstructive pulmonary disease, unspecified; I48.91 Unspecified atrial fibrillation; G62.9 Polyneuropathy, unspecified; Z79.01 Long term (current) use of anticoagulants; Z74.01 Bed confinement status; Z66 Do not resuscitate

== ENCOUNTER 2018-02-22 15:00 | Outpatient (CLI) | payer MEDICARE ==
--- NOTE | 2018-02-22 16:59 | CONSULTATION NOTE ---
Palliative Care Follow Up - Referral Referring Provider: Hattie Pandey PA-C Time of Visit: 02/22/2018. 15:00 - 15:30 Referral setting: Fdc Facility ([facility]) Referral Reason: Diarrhea - Information Sources Records reviewed: Previous records reviewed History/Review of Systems obtained from: Patient, Nursing, Other (Social work) Exam limitations: No limitations - History of Present Illness Update Brief HPI Update: -73 year old bedbound female, former Hospice patient, now at SNF for rehabilita tion after and ED visit on 02/13/18 for getting neck/head wedged between the bed and railing, and severe case of incontinence dermatitis. Prior to that she was hospitalized 02/06/18 - 02/09/18 for RUE cellulitis and UTI, was treated with IV ceftriaxone and vancomycin and discharged home at her request. 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 coli UTI, now indwelling Adams catheter. -The patient is quite miserable and agitated today after several episodes of "explosive" diarrhea. She has chronic loose stools, has used loperamide for years. -Nursing is finishing up the personal care at the beginning of this visit. -Patient is quite relieved to see me, and is able to calm down once she has been cleaned up. -She uses loperamide at home and is relieved to know that I will initiate loperamide for her. -Nursing reports the diarrhea doesn't have the telltale C diff odor. -She reports her pain is being well controlled and she is monitoring her dosing of oxycodone during her waking hours in a manner that works well. She finds that extra strength Tylenol at nighttime is helping her sleep. -She reports physical therapy is going well and she has been able to sit at the edge of the bed several times, something she has not done in a long while. -Her is visiting her about every other day. -She has redness and rash on buttocks; nursing reports the size of the area of redness has decreased since her admission. They are using Cavilon durable barrier cream. Social History - Living Situation Living arrangement: long-term ([facility], for rehabilitation and wound care) Living Situation: With caregiver(s) Support System: Renaldo is normally her caregiver at home. He visits about every other da y. When the patient is at home she has a Yolanda, her part-time caregiver 4 days a week, and Siomara had recently started on and Mon. Medications/Allergies - Medications Home Medications: Ambulatory Orders Medication Instructions Recorded Confirmed Venlafaxine [Effexor] 75 mg PO DAILY 07/10/13 02/23/18 Furosemide [Lasix] 40 mg PO DAILY 12/28/15 02/23/18 Metoprolol Succinate 12.5 mg PO DAILY 07/27/16 02/23/18 Spironolactone 25 mg PO DAILY 07/27/16 02/23/18 Digoxin 125 mcg PO DAILY 09/08/17 02/23/18 Ipratropium/Albuterol Sulfate 1 unit INH BID PRN 09/08/17 02/23/18 [Iprat-Albut 0.5-3(2.5) mg/3 ml] Oxycodone HCl 5 mg PO TID MDD use for 09/08/17 02/23/18 breakthrough pain only Nystatin 1 applic TP BID 10/13/17 02/23/18 Oxybutynin Chloride 5 mg PO BID PRN MDD bladder spasms 10/13/17 02/23/18 Warfarin Sodium 4 mg PO .T,TH,S,S 10/13/17 02/23/18 traZODone [Desyrel] 50 mg PO .QHS PRN 11/09/17 02/23/18 OLANZapine [Zyprexa] 5 mg PO DAILY 11/15/17 02/23/18 Senna [Senokot] 1 - 2 tab PO DAILY PRN 01/10/18 02/23/18 fentaNYL [Fentanyl 25mcg patch] 25 mcg TD Q72H 01/10/18 02/23/18 Saccharomyces Boulardii [Florastor] 250 mg PO BID #14 capsule MDD 02/09/18 02/23/18 until 03/04/18 OLANZapine [Olanzapine] 2.5 mg PO DAILY 02/16/18 02/23/18 Acetaminophen 500 - 1,000 mg PO Q6H PRN 02/23/18 02/23/18 House Bowel Program 1 ea PRN PRN 02/23/18 02/23/18 Warfarin Sodium 3 mg PO .M,W,F 02/23/18 02/23/18 - Allergies Allergies/Adverse Reactions: Allergies Allergy/AdvReac Type Severity Reaction Status Date / Time penicillin G Allergy Intermediate Unknown Verified 02/13/18 16:56 Sulfa (Sulfonamide Allergy Intermediate Rash Verified 02/13/18 16:56 Antibiotics) dyazides Allergy Intermediate Unknown Uncoded 02/13/18 16:56 Review of Systems - Constitutional Constitutional: reports: Weakness, Poor appetite, Weight loss (223.6 lbs . 228 lbs 02/16/18.) - Ears, Nose & Throat Ears, Nose & Throat: reports: Hearing loss - Cardiovascular Cardiovascular: reports: Decr. exercise tolerance - Respiratory Respiratory: reports: SOB at rest (episodic) - Gastrointestinal Gastrointestinal: reports: Diarrhea - Genitourinary Genitourinary: reports: Incontinence - Musculoskeletal Musculoskeletal: reports: Joint pain (controlled with current pain regimen) - Neurological Neurological: reports: Memory problems - Psychiatric Psychiatric: reports: Aggitation Physical Exam - Vital Signs Temperature: 97.4 F Pulse Rate: 89 O2 Saturation: 96 (room air) Blood Pressure: 129/67 (wrist cuff) - Physical Exam General Appearance: positive: Alert, Moderate distress Eyes Bilateral: positive: No lid inflammation, Conjunctivae nml, No scleral icterus ENT: positive: No signs of dehydration Neck: positive: Trachea midline Cardiovascular: positive: Regular rate & rhythm, No gallop, Systolic murmur (3/6) Respiratory: positive: Chest non-tender, No respiratory distress, Diminished throughout (body habitus), Wheezes. negative: Rales, Rhonchi Abdomen: positive: Nml bowel sounds Skin: positive: Pallor Extremities: positive: Pedal edema (3+), Other (Discoloration on LEs; resovling scab on R anterior lower extremity) Neurologic/Psychiatric: positive: Oriented x3, Mood/affect nml Palliative Care - POLST Patient has POLST: Yes POLST Status: DNR, Comfort Measures Pain: Pain improved Anxiety: Moderate (4-6) Dyspnea: None Anorexia: None Constipation: No, Comment (diarrhea, acute on chronic) - Palliative Care Discussion: Patient is having a mild/moderate anxiety attack when I came in, due to several episodes of diarrhea over the past day. The anxiety was resolved once she was cleaned up, spoke with me, and was assured that loperamide would start right away. She also requested oxycodone, and reported that she was monitoring the time and taking it appropriately to control chronic joint pain. She reports doing well in PT and OT, and is able to sit on the edge of the bed so she feels she is making some progress. We discussed the lack of safe and consistent caregiving at home, and the concern that she now requires a level of care that her spouse is not able to provide. He has significant challenges with his own health and with managing and understanding the patient's medications. He was performing personal care on her, and their caregiver had just left for the day when she fell out of bed. Also she acquired the significant case of dermatitis of incontinence since hospitalization. The patient may not fully understand the extent or seriousness of her condition, and certainly still wants to go home. In the past the spouse has voiced his frustration that she "doesn't try." Nursing has noted he handles her roughly, not abusive, but gentle enough to minimize pain and discomfort, particularly with the R knee. Due to her size, nursing in the SNF notes that it is quite challenging to provide personal care and being able to moving her as necessary without her being in pain. The spouse has said in the past that they would not qualify financially for [employer] or Medicaid, but the facility is working with the spouse on the application process for Medicaid long-term care. Since patient is now at a SNF, Home Health Nursing is likely not going to continue servicing the patient at home because it's considered an unsafe environment. Impression and Recommendations - Palliative Care Impression: -73 year old bedbound female, former Hospice patient, now at [facility] for therapy and wound care after an accident at home while spouse was giving personal care, and also for wound care due to a severe case of dermatitis of incontinence. Patient started having [id number] diarrhea, usually resolved with loperamide. Chronic pain is controlled on her current regimen. Of concern is whether the patient can be safely discharged home. Home Health nursing has advised against it. Palliative care will continue to provide oversight, support, and monitoring. Recommendations/Counseling Done: Chronic joint pain: Pain under control with Fentanyl 25mcg, oxycodone 5mg TID as needed, and Tylenol as needed. Gabapentin has been DC'd Debility: Continue PT and OT. Dermatitis rash, buttocks: Improving. Continue wound care with Cavilon durable barrier cream. Loose stools: Acute on chronic. No C diff odor. Hold all bowel meds. Started Loperamide, 4mg first episode of loose stool, 2mg after subsequent loose stools, max 16mg daily. Nursing is monitoring for changes or indications she is junior C diff colitis Cellulitis of RUE: Resolved; clindamycin regimen completed. Continue florastor. Anxiety and agitation: Controlled, once patient received treatment for her loose stool. Hospital had decreased Olanzapine (2.5mg daily and 5mg daily) ; I'm increasing it back to Olanzapine 5mg BID. Advanced care planning: DNR and comfort care. Facility is working with to apply for terminal carman care. He will be bringing the required papers in. Palliative care will work with family and SNF staff regarding redefining goals of care in view of the altered situation and eventual discharge from SNF to a safe setting. Medications DC'd by Dr Cole: Gabapentin, docusate, and omeprazole Follow up next week. Time Spent: 30 minutes were spent with more than 50% of the time spent on counseling, education, anticipatory guidance, and coordination of care.
== END 2018-02-22 15:01 | disposition home or self-care (01) ==
LOC: PC 15:00
PROVIDERS: ATTEND Nurse Practitioner
DX: Z51.5 Encounter for palliative care (principal); G89.29 Other chronic pain; M25.50 Pain in unspecified joint; R53.81 Other malaise; R19.7 Diarrhea, unspecified; F41.9 Anxiety disorder, unspecified; R45.1 Restlessness and agitation; J44.9 Chronic obstructive pulmonary disease, unspecified; I48.91 Unspecified atrial fibrillation; E66.9 Obesity, unspecified; Z96.0 Presence of urogenital implants; Z79.01 Long term (current) use of anticoagulants; Z66 Do not resuscitate
CPT/HCPCS: 99309

== ENCOUNTER 2018-03-14 11:15 | Outpatient (CLI) | payer MEDICARE ==
--- NOTE | 2018-03-14 17:52 | CONSULTATION NOTE ---
Palliative Care Follow Up - Referral Referring Provider: Hattie Pandey PA-C Time of Visit: 03/14/2018. 11:15 - 11:55 Referral setting: Home Referral Reason: Chronic pain, post hospitalization - Information Sources Records reviewed: Previous records reviewed History/Review of Systems obtained from: Patient, Family Exam limitations: No limitations - History of Present Illness Update Brief HPI Update: 73 year old bedbound female, former Hospice patient, recent ED visit on 02/13/18 for compression fracture T11, and severe case of incontinence dermatitis. She was at [facility] 3 weeks for rehab, discharging home last week. Prior to that she was hospitalized 02/06/18 - 02/09/18 for RUE cellulitis and UTI, was treated with IV ceftriaxone and vancomycin and discharged home at her request. 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 coli UTI, now indwelling Estevez catheter. -Today patient is doing well and reports pain in under control. -She and spouse were arguing when I entered the home. -Home Health nursing has restarted. RN 2x/week for continued home management and Estevez catheter care. HH Aide will resume once weekly to help/teach hygienic measures. Patient refused Physical Therapist. -Most of the time she uses 3 oxycodone daily, in addition to fentanyl 25mcg patch, but sometimes uses 4 tablets daily. Reminded her that limit is 90 pills per month, and she'll need to manage consumption through the month. -Physical therapist at the [facility] reported she had made great progress, was able to sut up in bed and pain had improved with the increased movement of the R knee. -Patient is not continuing PT exercises at home. -Reconciled medicines with patient's spouse. He is using a mix of medisets and several pill bottles -Dr Cole at [facility] had DCd Omeprazole, gabapentin and docusate. -Patient had restarted omeprazole -- she's taken it for years, and felt increased stomach problems without it. I provided education on limiting the time on PPIs due to risk of decreased absorption. -She also restarted gabapentin. Social History - Living Situation Living arrangement: At home Living Situation: With spouse/s.o. Support System: -They have been 51 years. -They have caregiver support 4-6 hours per day, every day of the week. Dayanara, and also a new caregiver. -Patient complained a bit about why do we have to talk about caregivers. I offered education about the safety aspect. Medications/Allergies - Medications Home Medications: Ambulatory Orders Medication Instructions Recorded Confirmed Venlafaxine [Effexor] 75 mg PO DAILY 07/10/13 03/14/18 Furosemide [Lasix] 40 mg PO DAILY 12/28/15 03/14/18 Metoprolol Succinate 12.5 mg PO DAILY 07/27/16 03/14/18 Digoxin 125 mcg PO DAILY 09/08/17 03/14/18 Ipratropium/Albuterol Sulfate 1 unit INH BID PRN 09/08/17 03/14/18 [Iprat-Albut 0.5-3(2.5) mg/3 ml] Oxycodone HCl 5 mg PO TID MDD use for 09/08/17 03/14/18 breakthrough pain only Nystatin 1 applic TP BID 10/13/17 03/14/18 Oxybutynin Chloride 5 mg PO BID PRN MDD bladder spasms 10/13/17 03/14/18 Warfarin Sodium 4 mg PO .T,TH,S,S 10/13/17 03/14/18 traZODone [Desyrel] 50 mg PO .QHS PRN 11/09/17 03/14/18 OLANZapine [Zyprexa] 5 mg PO BID 11/15/17 03/14/18 Senna [Senokot] 0.5 tab PO DAILY PRN 01/10/18 03/14/18 fentaNYL [Fentanyl 25mcg patch] 25 mcg TD Q72H 01/10/18 03/14/18 Acetaminophen 500 - 1,000 mg PO Q6H PRN 02/23/18 03/14/18 Warfarin Sodium 3 mg PO .M,W,F 02/23/18 03/14/18 Gabapentin 300 mg PO BID 03/14/18 03/14/18 Omeprazole 20 mg PO DAILY PRN 03/14/18 03/14/18 - Allergies Allergies/Adverse Reactions: Allergies Allergy/AdvReac Type Severity Reaction Status Date / Time penicillin G Allergy Intermediate Unknown Verified 02/13/18 16:56 Sulfa (Sulfonamide Allergy Intermediate Rash Verified 02/13/18 16:56 Antibiotics) dyazides Allergy Intermediate Unknown Uncoded 02/13/18 16:56 Review of Systems - Constitutional Constitutional: reports: Weight loss (2236 lbs Feb 21 at SNF. That was 4 lb weight loss since admission to the SNF.) - Ears, Nose & Throat Ears, Nose & Throat: reports: Hearing loss - Cardiovascular Cardiovascular: reports: Edema, Decr. exercise tolerance. denies: Chest pain - Respiratory Respiratory: denies: Cough, SOB at rest - Genitourinary Genitourinary: reports: Other (estevez catheter, urine pale yellow, no sediment) - Musculoskeletal Musculoskeletal: reports: Back pain, Stiffness, Limited range of motion, Muscle weakness, Joint pain (R knee), Assistive devices (bedbound), Transfer issues - Integumentary Integumentary: reports: Rash (on buttocks, improving per RN report) - Neurological Neurological: reports: General weakness, Memory problems, Pre-existing deficit - Psychiatric Psychiatric: reports: Depression, Anxiety Physical Exam - Vital Signs Temperature: 96.3 F Pulse Rate: 71 O2 Saturation: 95 (room air) Blood Pressure: 120/56 (wrist cuff) - Physical Exam General Appearance: positive: No acute distress, Other (arguing with spouse when I entered) Eyes Bilateral: positive: No lid inflammation, Conjunctivae nml, No scleral icterus ENT: positive: No signs of dehydration Neck: positive: Trachea midline Cardiovascular: positive: Systolic murmur (2/6) Respiratory: positive: No respiratory distress, Breath sounds nml, Diminished in bases Abdomen: positive: Soft, Nml bowel sounds, Obese Skin: positive: Pallor, Rash (Lateral RUE at elbow, mild erythema and several small bullae. Also on R newton.) Extremities: positive: Pedal edema (3+) Neurologic/Psychiatric: positive: Mood/affect nml Palliative Care - POLST Patient has POLST: Yes POLST Status: DNR, Comfort Measures Pain: Pain unchanged, Location (Back and R knee) Anxiety: Mild (1-3) Anorexia: None Constipation: Intermittent constipation Impression and Recommendations - Palliative Care Impression: 73 year old bed-bound female, former Hospice patient, discharged home last week from [facility] for rehabilitation and wound care after an accident at home causing T11 compression fracture and a severe case of dermatitis of incontinence. Patient appears to be back to baseline with chronic pain. Home Health nursing has restarted continued home management and Estevez catheter care, plus HH Aid for hygiene help/teaching of hygienic measures. Palliative care will continue to provide oversight, support, and monitoring. Recommendations/Counseling Done: Chronic joint pain: At baseline. Contniue Fentanyl 25mcg, oxycodone 5mg TID as needed, and Tylenol as needed. Gabapentin was DC'd by SNF provider, patient has restarted it at home: 300 mg BID Dermatitis rash, buttocks: Has improved, per HH real time analyst note (was unable to reposition pt to assess). HH will use Nystatin powder and monitor. Constipation: On occasion. Patient uses 1/2 tablet Senna as needed. She never uses Miralax due to chronic loose stools Cellulitis of RUE: Improved, but erythematous, nonpruritic rash on lateral aspect. Nursing to monitor. Anxiety and agitation: Olanzapine 5mg BID. Patient reports improvement Follow up visit 6-8 weeks and as needed.
== END 2018-03-14 11:16 | disposition home or self-care (01) ==
LOC: PC 11:15
PROVIDERS: ATTEND Nurse Practitioner
DX: Z51.5 Encounter for palliative care (principal); G89.29 Other chronic pain; M25.561 Pain in right knee; M54.9 Dorsalgia, unspecified; Z96.0 Presence of urogenital implants; K59.00 Constipation, unspecified; F41.9 Anxiety disorder, unspecified; R45.1 Restlessness and agitation; Z74.01 Bed confinement status; I42.6 Alcoholic cardiomyopathy; J44.9 Chronic obstructive pulmonary disease, unspecified; I48.91 Unspecified atrial fibrillation; Z79.01 Long term (current) use of anticoagulants; Z91.14 Patient's other noncompliance with medication regimen; Z66 Do not resuscitate
CPT/HCPCS: 99349

== ENCOUNTER 2018-05-01 13:40 | Outpatient (CLI) | payer MEDICARE ==
--- NOTE | 2018-05-01 18:21 | CONSULTATION NOTE ---
Palliative Care Follow Up - Referral Referring Provider: Hattie Pandey PA-C Time of Visit: 05/01/2018. 13:40 - 14:15 Referral setting: Home (Seen in home setting due to taxing and considerable effort required to leave the home due to immobility and being bedbound secondary to alcoholic cardiomyopathy.) Referral Reason: Chronic pain - Information Sources Records reviewed: Previous records reviewed History/Review of Systems obtained from: Patient, Caregiver Exam limitations: No limitations - History of Present Illness Update Brief HPI Update: 73 year old bedbound female, former Hospice patient, hospitalized beginning of Feb for RUE cellulitis and UTI, and later in Feb went to ED and then [facility] x 3 weeks for compression fracture T11 and severe case of incontinence dermatitis. Seen today in her home. 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 coli UTI, now indwelling Adams catheter. -Patient continues with Home Health RN. -RLE cellulitis is now healed. -Redness of upper back remains due to patient's noncompliance with skin distribution and pressure wound avoidance teachings. -She reports chronic pain adequately controlled on current opioid regimen of Fentanyl 25mcg patch with [place] 5/325 TID PRN. Discussed at length if she takes an extra on one day that she'll need ration the doses on other days. Patient verbalizes understanding and agreement. Since her hospitalization the medication management has improved. -Patient hasn't been getting transferred out of bed due to her caregiver Yolanda has not been able to help spouse with the actual transfer due to her heart condition. -She reports a single episode of urinary spasms this weekend. Urine in catheter bag is 600cc, clear yellow with sediment, which is normal for this patient. Social History - Living Situation Living arrangement: At home Living Situation: With spouse/s.o., With caregiver(s) Support System: Lives with spouse of 51 years, Renaldo. they have an adopted son in [place]. They have caregiver support 4-6 hours daily on the weekdays, Dayanara. Currently there is no weekend cg'r support. Medications/Allergies - Medications Home Medications: Ambulatory Orders Medication Instructions Recorded Confirmed Venlafaxine [Effexor] 75 mg PO DAILY 07/10/13 03/14/18 Furosemide [Lasix] 40 mg PO DAILY 12/28/15 03/14/18 Metoprolol Succinate 12.5 mg PO DAILY 07/27/16 03/14/18 Digoxin 125 mcg PO DAILY 09/08/17 03/14/18 Ipratropium/Albuterol Sulfate 1 unit INH BID PRN 09/08/17 03/14/18 [Iprat-Albut 0.5-3(2.5) mg/3 ml] Oxycodone HCl 5 mg PO TID MDD use for 09/08/17 03/14/18 breakthrough pain only Nystatin 1 applic TP BID 10/13/17 03/14/18 Oxybutynin Chloride 5 mg PO BID PRN MDD bladder spasms 10/13/17 03/14/18 Warfarin Sodium 4 mg PO .T,TH,S,S 10/13/17 03/14/18 traZODone [Desyrel] 50 mg PO .QHS PRN 11/09/17 03/14/18 OLANZapine [Zyprexa] 5 mg PO BID 11/15/17 03/14/18 Senna [Senokot] 0.5 tab PO DAILY PRN 01/10/18 03/14/18 fentaNYL [Fentanyl 25mcg patch] 25 mcg TD Q72H 01/10/18 03/14/18 Acetaminophen 500 - 1,000 mg PO Q6H PRN 02/23/18 03/14/18 Warfarin Sodium 3 mg PO .M,W,F 02/23/18 03/14/18 Gabapentin 300 mg PO BID 03/14/18 03/14/18 Omeprazole 20 mg PO DAILY PRN 03/14/18 03/14/18 - Allergies Allergies/Adverse Reactions: Allergies Allergy/AdvReac Type Severity Reaction Status Date / Time penicillin G Allergy Intermediate Unknown Verified 02/13/18 16:56 Sulfa (Sulfonamide Allergy Intermediate Rash Verified 02/13/18 16:56 Antibiotics) dyazides Allergy Intermediate Unknown Uncoded 02/13/18 16:56 Review of Systems - Constitutional Constitutional: reports: Weakness, Weight stable (223.6 lbs at SNF in Feb, a 4 lb loss during her SNF stay.) - Ears, Nose & Throat Ears, Nose & Throat: reports: Hearing loss - Cardiovascular Cardiovascular: reports: Edema (chronic RUE), Decr. exercise tolerance - Respiratory Respiratory: denies: Cough, SOB at rest - Gastrointestinal Gastrointestinal: denies: Abdominal pain, Constipation, Nausea - Genitourinary Genitourinary: reports: Other (indwelling Adams catheter). denies: Dysuria, Hematuria, Flank pain - Musculoskeletal Musculoskeletal: reports: Back pain (at baseline), Limited range of motion, Joint pain (R knee doing well), Transfer issues - Neurological Neurological: reports: General weakness, Memory problems, Pre-existing deficit - Psychiatric Psychiatric: reports: Anxiety Physical Exam - Vital Signs Temperature: 96.9 F Pulse Rate: 72 O2 Saturation: 96 (room air) Blood Pressure: 101/53 (wrist cuff) - Physical Exam General Appearance: positive: No acute distress, Alert Eyes Bilateral: positive: Normal inspection ENT: positive: No signs of dehydration Neck: positive: No JVD, Trachea midline Cardiovascular: positive: Regular rate & rhythm, No gallop, Systolic murmur (2/6) Respiratory: positive: Chest non-tender, No respiratory distress, Breath sounds nml, Diminished in bases Skin: positive: Other (Erythema improving. RLE wound resolving.) Extremities: positive: Pedal edema (2+) Neurologic/Psychiatric: positive: Oriented x3, Mood/affect nml Palliative Care - POLST Patient has POLST: Yes POLST Status: DNR, Comfort Measures Tiredness/Fatigue: Mild (1-3) Drowsiness/Sedation: None Nausea: None Anxiety: Mild (1-3) Anorexia: None Sleep: Variable sleep pattern Impression and Recommendations - Palliative Care Impression: 73 year old bed-bound female, former Hospice patient, skin issues resolving but erythema remains in upper back due to noncompliance with repositioning and teaching on prevention of pressure wounds. Patient at baseline with chronic pain and appears to be rationing her pain meds appropriately. Home Health nursing continues wound management and Adams catheter care, and HH Aide. Palliative care will continue to provide oversight, support, and monitoring. Recommendations/Counseling Done: Chronic joint pain: Controlled with Fentanyl 25mcg, and oxycodone 5mg TID PRN, scripts managed by PCP clinic. Dosing was titrated over the past several months and appears adequate to control ongoing joint and chronic back pain exacerbated by bedbound status of patient. Researched SALES LEADER [place]: no concerning activity. Also has Tylenol as needed Peripheral neuropathy: Gabapentin 300 mg BID. Dermatitis rash, buttocks: Has excoriation with stage 2 wound, HH RN managing. Erythema on upper back remains; patient is noncompliant with repositioning and other methods for prevention of pressure wounds Anxiety and agitation: Improved with Olanzapine 5mg BID. h/o E coli UTI with indwelling Adams catheter: Clear yellow urine, 600cc, with sediment, which is baseline. No fever or chills and bladder nondistended and non tender. Adams catheter will be changed 05/06 or possibly 05/04 Follow up visit 6-8 weeks and as needed. Time Spent: 35 minutes were spent with more than 50% of the time spent on counseling, education, and coordination of care.
== END 2018-05-01 13:41 | disposition home or self-care (01) ==
LOC: PC 13:40
PROVIDERS: ATTEND Nurse Practitioner
DX: Z51.5 Encounter for palliative care (principal); G89.29 Other chronic pain; K59.00 Constipation, unspecified; F41.9 Anxiety disorder, unspecified; R45.1 Restlessness and agitation; Z74.01 Bed confinement status; I42.6 Alcoholic cardiomyopathy; Z96.0 Presence of urogenital implants
CPT/HCPCS: 99348

== ENCOUNTER 2018-07-28 12:30 | Outpatient (CLI) | payer MEDICARE ==
[2018-07-28 14:10] LABS: HGB - HEMOGLOBIN 11.6 g/dL (12.0-16.0); MEAN CORPUSCULAR HEMOGLOBIN 30.2 pg (27.0-31.0); MEAN CORPUSCULAR HGB CONC 34.8 g/dL (32.0-36.0); MEAN PLATELET VOLUME 7.1 fL (7.9-10.8); RED BLOOD COUNT 3.83 10^6/uL (4.20-5.40); RED CELL DISTRIBUTION WIDTH 16.3 % (12.0-15.0); WHITE BLOOD COUNT 6.2 x10^3/uL (4.8-10.8)
[2018-07-28 14:18] LABS: CALCIUM 9.2 mg/dL (8.5-10.3); CREATININE 0.6 mg/dL (0.4-1.0)
[2018-07-28 14:37] LABS: HB2 TOTAL 12.2 g/dL; HEMOGLOBIN A1C 0.66 g/dL; HEMOGLOBIN A1C % 7.1 % (4.6-6.2)
== END 2018-07-28 23:59 | disposition home or self-care (01) ==
LOC: LAB.R 12:30
PROVIDERS: ATTEND Physician Assistant Medical
DX: E11.9 Type 2 diabetes mellitus without complications (principal); D64.9 Anemia, unspecified
CPT/HCPCS: 80048; 83036; 85027

== ENCOUNTER 2018-07-31 16:29 | Outpatient (CLI) | payer MEDICARE ==
--- NOTE | 2018-07-31 16:48 | CONSULTATION NOTE ---
Palliative Care Follow Up - Referral Referring Provider: Hattie Pandey PA-C Time of Visit: 07/31/2018. 14:00 - 14:50 Referral setting: Home (Seen in home setting due to taxing and considerable effort required to leave the home due to immobility and being bedbound secondary to alcoholic cardiomyopathy.) Referral Reason: Arthritis pain in hands/knee - Information Sources Records reviewed: RN notes reviewed, Previous records reviewed History/Review of Systems obtained from: Patient, Family - History of Present Illness Update Brief HPI Update: 73 year old bedbound female, former Hospice patient, hospitalized beginning of Feb for RUE cellulitis and UTI, and later in Feb went to ED and then [facility] x 3 weeks for compression fracture T11 and severe case of incontinence dermatitis. Seen today in her home. 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 coli UTI, now indwelling Adams catheter. -Home Health RN service was just recertified her for Adams catheter management, medicine management, and wound/skin care -Patient complains of increased achy pain, in R knee and both hands, but especially left hand. R knee often extremely painful when being moved. She also reports R shoulder pain, "it grabs and squeezes." Will start her on Voltaren/diclofenac ointment, provided education about starting QID and using it for 1-2 weeks for effects to be felt. Discussed and provided education on joint mobilization and movement even while bed ridden. Patient is bedbound, and no longer transferring to wheelchair periodically. Patient reports she is not having looses stools anymore. She is working on regulating her bowel movements, and is using both senna and Miralax, something she didn't have to do in the past, even while on opioids, due to her chronic loose stools Spouse asked for help on minimizing the trips he takes to the PCP and the pharmacy every month to renew their controlled substances. Provided education to the spouse as to why the procedure is so restricted. I spoke with their PCP clinic, to assure that he could call the script in, rather than driving to the PCP in person to request a new script. The spouse confirmed understanding of the plan. He has also arranged so their caregiver can pickle processor the meds from the pharmacy. Patient reports good appetie, sleeping well, fairly regular bowel movements, and no other concerns or complaints. She continues to use oxycodone 3x/day most days, but does remain aware of managing it so she doesn't run out prior to the end of the month. For instance, using Tylenol for the pain when possible. Social History - Living Situation Living arrangement: At home Living Situation: With spouse/s.o. Support System: Lives with spouse of 51 years, Renaldo. they have an adopted son in [place]. They have caregiver support, Yolanda. Medications/Allergies - Medications Home Medications: Ambulatory Orders Medication Instructions Recorded Confirmed Venlafaxine [Effexor] 75 mg PO DAILY 07/10/13 03/14/18 Furosemide [Lasix] 40 mg PO DAILY 12/28/15 03/14/18 Metoprolol Succinate 12.5 mg PO DAILY 07/27/16 03/14/18 Digoxin 125 mcg PO DAILY 09/08/17 03/14/18 Ipratropium/Albuterol Sulfate 1 unit INH BID PRN 09/08/17 03/14/18 [Iprat-Albut 0.5-3(2.5) mg/3 ml] Oxycodone HCl 5 mg PO TID MDD use for 09/08/17 03/14/18 breakthrough pain only Nystatin 1 applic TP BID 10/13/17 03/14/18 Oxybutynin Chloride 5 mg PO BID PRN MDD bladder spasms 10/13/17 03/14/18 Warfarin Sodium 4 mg PO .T,TH,S,S 10/13/17 03/14/18 traZODone [Desyrel] 50 mg PO .QHS PRN 11/09/17 03/14/18 OLANZapine [Zyprexa] 5 mg PO BID 11/15/17 03/14/18 Senna [Senokot] 0.5 tab PO DAILY PRN 01/10/18 03/14/18 fentaNYL [Fentanyl 25mcg patch] 25 mcg TD Q72H 01/10/18 03/14/18 Acetaminophen 500 - 1,000 mg PO Q6H PRN 02/23/18 03/14/18 Warfarin Sodium 3 mg PO .M,W,F 02/23/18 03/14/18 Gabapentin 300 mg PO BID 03/14/18 03/14/18 Omeprazole 20 mg PO DAILY PRN 03/14/18 03/14/18 Diclofenac Sodium [Voltaren] 2 - 4 g TOP QID PRN MDD 32g max 07/31/18 07/31/18 daily - Allergies Allergies/Adverse Reactions: Allergies Allergy/AdvReac Type Severity Reaction Status Date / Time penicillin G Allergy Intermediate Unknown Verified 02/13/18 16:56 Sulfa (Sulfonamide Allergy Intermediate Rash Verified 02/13/18 16:56 Antibiotics) dyazides Allergy Intermediate Unknown Uncoded 02/13/18 16:56 Review of Systems - Constitutional Constitutional: reports: Weight stable (219 lbs 02/13/18, BMI 37.8). denies: Poor appetite - Ears, Nose & Throat Ears, Nose & Throat: reports: Hearing loss - Cardiovascular Cardiovascular: reports: Edema (RUE, chronic), Decr. exercise tolerance - Respiratory Respiratory: denies: Cough, SOB at rest - Gastrointestinal Gastrointestinal: reports: Constipation (episodic). denies: Diarrhea - Genitourinary Genitourinary: reports: Incontinence (Adams catheter; also incontinent of bowel). denies: Dysuria - Musculoskeletal Musculoskeletal: reports: Muscle pain, Limited range of motion, Muscle weakness, Joint pain (hands and R knee), Assistive devices (trapeze), Transfer issues (bedbound) - Integumentary Integumentary: reports: Pigment changes (lower extremities) - Psychiatric Psychiatric: reports: Anxiety, Aggitation - Endocrine Endocrine: reports: Diabetes type 2 Physical Exam - Vital Signs Temperature: 95.6 F Pulse Rate: 62 O2 Saturation: 94 (room air) Blood Pressure: 107/47 (wrist cuff) - Physical Exam General Appearance: positive: No acute distress, Alert Eyes Bilateral: positive: No lid inflammation, Conjunctivae nml, No scleral icterus ENT: positive: No signs of dehydration Neck: positive: Trachea midline Cardiovascular: positive: Regular rate & rhythm, Systolic murmur (2/6) Respiratory: positive: Chest non-tender, No respiratory distress, Diminished in bases Abdomen: positive: Soft, Nml bowel sounds, Obese Skin: positive: Pallor, Wound (RLE, clean dry dressing) Extremities: positive: Pedal edema (+3, also +3 chronic RUE edema), Joint swelling Neurologic/Psychiatric: positive: Oriented x3, Mood/affect nml Palliative Care - POLST Patient has POLST: Yes POLST Status: DNR, Comfort Measures Pain: Location (R knee, hands, R shoulder), Comment (chronic, arthritis, worse with movement especially knee) Tiredness/Fatigue: Mild (1-3) Drowsiness/Sedation: None Anxiety: Mild (1-3) Anorexia: None Constipation: Managed Performance Status: bedbound unable to reposition self Adams catheter does not move or mobilize joints/extremities in bed Impression and Recommendations - Palliative Care Impression: 73 year old bed-bound female, former Hospice patient, on long-term opioid for chronic and arthritic pain in joints. Home Health nursing continues wound and medicine management and Adams catheter care. Palliative care will continue to provide oversight, support, and monitoring. Recommendations/Counseling Done: Chronic joint pain: Continue Fentanyl 25mcg patch, and oxycodone 5mg TID PRN, scripts managed by PCP clinic. Also Tylenol as needed. Add diclofenac (Voltaren) 1% gel. Apply 2g QID, max 8g/joint/day on upper extremity joints (hands, elbow). Apply 4g to R knee joint QID, 6g/joint/day max. Total per day on all joints (upper and lower extremities) is 32g/max/day. Chronic back and knee pain exacerbated by bedbound status of patient. Consulted INSTRUCTOR TAP DANCING [place]: no concerning activity. Peripheral neuropathy: Gabapentin 300 mg BID. Anxiety and agitation: Baseline, controlled with Olanzapine 5mg BID. Advance care plan: DNR and comfort care. Patient amendable to hospital for reversible conditions. Follow up visit 2-3 months or as needed. Time Spent: 50 minutes were spent with more than 50% of the time spent on counseling, education, and coordination of care with primary care clinic and patient regarding pain medications.
== END 2018-07-31 16:30 | disposition home or self-care (01) ==
LOC: PC 16:29
PROVIDERS: ATTEND Nurse Practitioner
DX: Z51.5 Encounter for palliative care (principal); G89.29 Other chronic pain; M19.042 Primary osteoarthritis, left hand; M19.041 Primary osteoarthritis, right hand; M17.11 Unilateral primary osteoarthritis, right knee; M25.511 Pain in right shoulder; M54.9 Dorsalgia, unspecified; E11.42 Type 2 diabetes mellitus with diabetic polyneuropathy; F41.9 Anxiety disorder, unspecified; R45.1 Restlessness and agitation; I42.6 Alcoholic cardiomyopathy; I11.0 Hypertensive heart disease with heart failure; I50.9 Heart failure, unspecified; E66.9 Obesity, unspecified; Z74.01 Bed confinement status; Z96.0 Presence of urogenital implants; Z79.891 Long term (current) use of opiate analgesic; Z68.37 Body mass index [BMI] 37.0-37.9, adult; Z66 Do not resuscitate; Z79.899 Other long term (current) drug therapy
CPT/HCPCS: 99349

== ENCOUNTER 2018-08-23 14:30 | Outpatient (CLI) | payer MEDICARE ==
--- NOTE | 2018-08-23 22:00 | CONSULTATION NOTE ---
Palliative Care Follow Up - Referral Referring Provider: Hattie Pandey PA-C Time of Visit: Maria D 08/23/2018. 14:30 - 15:30 Referral setting: Home Referral Reason: Chronic R knee pain - Information Sources Records reviewed: RN notes reviewed, Previous records reviewed History/Review of Systems obtained from: Patient, Family, Nursing Exam limitations: Clinical condition (vague historian) - History of Present Illness Update Brief HPI Update: 73 year old bedbound female, former Hospice patient, bedbound with chronic a rthritis pain. 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 coli UTI, now indwelling Adams catheter. Patient has ongoing pain particularly in R knee. Ordered Voltaren for her knee at last visit on 07/31. However, it was not started until 08/15. They report applying it BID, I have revised earlier advice and recommend they try it QID. Spent much time educating spouse (who has literacy disabilities) how to use the dosing card. Also much discussion spent on processing opioid orders and spouse's desire to streamline process. Educated that opioid restrictions means there are strict limits in when an opioid can be refilled by the pharmacy, and also that the pharmacy requires a paper script in this case. Up to now, PCP Dannie has been writing the opioid scripts. I wrote this month's and can provide it ongoing. Explained to spouse that we're located in [place], which is much further for him to drive to cloth napping supervisor script if there is no other way to get it to them in [facility]. Patient does not complain of pain today. Some days are good, others she can't tolerate movement of the R leg at all. She is completely bedbound. When spouse and RN tried to move her the other day, she "screamed" (spouse's description). She does report that she uses oxycodone 3x daily for breakthrough pain. We will keep opioids at their current level. Her MED is 82.5 (Fentanyl 25mcg and oxy 5mg TID). Voltaren can take 2-3 weeks for effects to manifest. Patient reports 3-4 days between bowel movements so I will increase Senna to 8.6mg BID. Pt has h/o runny stools, but also opioid-induced constipation. Home Health RN service manages her Adams catheter, medicine organization, PT/INR, and wound/skin care. Visits twice weekly. Social History - Living Situation Living arrangement: At home Living Situation: With spouse/s.o. Support System: Lives with spouse of 51 years, Renaldo. they have an adopted son in [place]. Renaldo may have literacy disabilities. They have caregiver support, Yolanda. Medications/Allergies - Medications Home Medications: Ambulatory Orders Medication Instructions Recorded Confirmed Venlafaxine [Effexor] 75 mg PO DAILY 07/10/13 08/24/18 Furosemide [Lasix] 40 mg PO DAILY 12/28/15 08/24/18 Metoprolol Succinate 12.5 mg PO DAILY 07/27/16 08/24/18 Digoxin 125 mcg PO DAILY 09/08/17 08/24/18 Ipratropium/Albuterol Sulfate 1 unit INH BID PRN 09/08/17 08/24/18 [Iprat-Albut 0.5-3(2.5) mg/3 ml] Oxycodone HCl 5 mg PO TID MDD use for 09/08/17 08/24/18 breakthrough pain only Nystatin 1 applic TP BID 10/13/17 08/24/18 Oxybutynin Chloride 5 mg PO BID PRN MDD bladder spasms 10/13/17 08/24/18 Warfarin Sodium 4 mg PO .T,TH,S,S 10/13/17 08/24/18 traZODone [Desyrel] 50 mg PO .QHS PRN 11/09/17 08/24/18 OLANZapine [Zyprexa] 5 mg PO BID 11/15/17 08/24/18 Senna [Senokot] 1 tab PO BID 01/10/18 08/24/18 fentaNYL [Fentanyl 25mcg patch] 25 mcg TD Q72H 01/10/18 08/24/18 Acetaminophen 500 - 1,000 mg PO Q6H PRN 02/23/18 08/24/18 Warfarin Sodium 3 mg PO .M,W,F 02/23/18 08/24/18 Gabapentin 300 mg PO BID 03/14/18 08/24/18 Omeprazole 20 mg PO DAILY PRN 03/14/18 08/24/18 Diclofenac Sodium [Voltaren] 2 - 4 g TOP QID PRN MDD 32g max 07/31/18 08/24/18 daily - Allergies Allergies/Adverse Reactions: Allergies Allergy/AdvReac Type Severity Reaction Status Date / Time penicillin G Allergy Intermediate Unknown Verified 02/13/18 16:56 Sulfa (Sulfonamide Allergy Intermediate Rash Verified 02/13/18 16:56 Antibiotics) dyazides Allergy Intermediate Unknown Uncoded 02/13/18 16:56 Review of Systems - Constitutional Constitutional: reports: Weakness, Other (Unable to weigh. She appears about the same. Morbid obesity). denies: Poor appetite - Ears, Nose & Throat Ears, Nose & Throat: reports: Hearing loss - Cardiovascular Cardiovascular: reports: Edema (RUE lymphedema syndrome s/p R mastectomy 1993), Decr. exercise tolerance - Respiratory Respiratory: denies: Cough - Gastrointestinal Gastrointestinal: reports: Constipation, Good appetite. denies: Diarrhea (h/o loose stools) - Genitourinary Genitourinary: reports: Other (Adams catheter) - Musculoskeletal Musculoskeletal: reports: Back pain, Joint pain (R knee, R shoulder) - Integumentary Integumentary: reports: Rash - Neurological Neurological: reports: General weakness, Memory problems - Psychiatric Psychiatric: reports: Anxiety, Aggitation Physical Exam - Vital Signs Temperature: 96.5 F Pulse Rate: 60 O2 Saturation: 95 Blood Pressure: 103/54 - Physical Exam General Appearance: positive: No acute distress, Alert Eyes Bilateral: positive: Normal inspection ENT: positive: No signs of dehydration Cardiovascular: positive: Regular rate & rhythm, Systolic murmur (3/6) Respiratory: positive: Diminished in bases Abdomen: positive: Obese Skin: positive: Pallor, Wound (Chronic RLE wound: clean, dry dressing. Wound ma naged by RN) Extremities: positive: Pedal edema (3+) Neurologic/Psychiatric: positive: Oriented x3, Mood/affect nml Palliative Care - POLST Patient has POLST: Yes POLST Status: DNR, Comfort Measures Pain: Location (R knee, OK today) Drowsiness/Sedation: None Anxiety: Mild (1-3) Anorexia: None Constipation: Yes, Opoid induced, Managed Performance Status: bedbound unable to reposition self Adams catheter does not move or mobilize joints/extremities in bed Impression and Recommendations - Palliative Care Impression: 73-year-old bed-bound female, former Hospice patient, on long-term opioid for chronic and arthritic pain in joints. Complains of R knee pain, recently started Voltaren. Home Health nursing continues wound and medicine management and Adams catheter care. Palliative care will continue to provide oversight, support, and monitoring. Recommendations/Counseling Done: Chronic joint pain: On Fentanyl 25mcg patch, and oxycodone 5mg TID PRN (MED 82.5), scripts have been managed by PCP clinic, I wrote refills for end of August fulfillment. Spouse is complaining of the time/running around he does for scripts. Explained those are the opioid rules. Our office is up in [place], an even further drive for him. Diclofenac (Voltaren) 1% gel was delayed and started only last week; it takes a few weeks to take effect. Apply QID, 2g on UE joints and 4g on LE joints. Total per day on all joints (upper and lower extremities) is 32g/max/day. Pt also has Tylenol. Chronic back and knee pain exacerbated by bedbound status of patient. Consulted DIRECTOR EMPLOYMENT [place]: no concerning opioid activity. Anxiety and agitation: Appears at baseline, controlled with Olanzapine 5mg BID. Advance care plan: DNR and comfort care. Patient amendable to hospital for reversible conditions. HH RN manages wound care, Adams, medicine organization and teaching. Follow up visit 2-3 months or as needed. Time Spent: 60 minutes were spent with more than 50% of the time spent on counseling, education, and coordination of care.
== END 2018-08-23 14:31 | disposition home or self-care (01) ==
LOC: PC 14:30
PROVIDERS: ATTEND Nurse Practitioner
DX: Z51.5 Encounter for palliative care (principal); M06.9 Rheumatoid arthritis, unspecified; G89.29 Other chronic pain; F41.9 Anxiety disorder, unspecified; R45.1 Restlessness and agitation; I10 Essential (primary) hypertension; I42.6 Alcoholic cardiomyopathy; Z74.01 Bed confinement status; E66.01 Morbid (severe) obesity due to excess calories; I97.2 Postmastectomy lymphedema syndrome; Z85.3 Personal history of malignant neoplasm of breast; Z66 Do not resuscitate; Z96.0 Presence of urogenital implants; Z79.891 Long term (current) use of opiate analgesic; Z79.899 Other long term (current) drug therapy
CPT/HCPCS: 99350

== ENCOUNTER 2018-10-02 08:00 | Outpatient (CLI) | payer MEDICARE | END 2018-10-02 23:59 | disposition home or self-care (01) | LOC: LAB.R 08:00 | PROVIDERS: ATTEND Internal Medicine | DX: S81.801D Unspecified open wound, right lower leg, subsequent encounter (principal) | CPT/HCPCS: 87070; 87181; 87205 ==

== ENCOUNTER 2018-11-20 16:31 | Outpatient (CLI) | payer MEDICARE ==
--- NOTE | 2018-11-20 17:16 | CONSULTATION NOTE ---
Palliative Care Follow Up - Referral Referring Provider: Hattie Pandey PA-C Time of Visit: 11/20/2018. 9:00 - 9:45 Referral setting: Home Referral Reason: Chronic pain - Information Sources Records reviewed: Previous records reviewed History/Review of Systems obtained from: Patient, Caregiver Exam limitations: No limitations, Clinical condition (inconsistent historian) - History of Present Illness Update Brief HPI Update: 73 year old bedbound female, former Hospice patient, bedbound with chronic arthritis pain. 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 coli UTI, now indwelling Adams catheter. Patient is alert, pleasant and responds appropriately. Patient is on long-term Home Health nursing for wound care, Adams catheter ma intenance and medication management. Nursing had noticed patient appearing more sedated and with mental status changes, described as increased "loopiness" by the Home Health Nurse. Patient's PRN opioids for breakthrough pain have been titrated several times over the past months. 08/30/18 oxycodone was increased to 10mg TID PRN due to insufficient pain control. 09/25/18 oxycodone was decreased to 10mg PRN a.m. and p.m., and 5mg PRN noon. With the patient's sedation and "loopiness," last week oxycodone was decreased to 5mg PRN a.m. and noon, and 10mg PRN p.m. Since then, patient and caregiver report improved alertness and less sedation, although she continues to sleep often throughout the day. Patient reports she has very little pain with this regimen and is happy to continue at this level. The fentanyl 25mcg patch for baseline pain remains as is. HH RN had also reported some increased shortness of breath. Patient confirmed that previously she had more SOA than normal, but it has im proved over the past 1-2 weeks. She denies SOA and cough, and her lung sounds are clear, without crackles. Her lower extremity edema and chronic RUE edema are at baseline. Palliative care has ordered a lab draw to check kidney function in anticipation of possibly adjusting diuretics. Patient reports some anxiety about a blood draw, she says healthcare workers generally have difficulty finding a vein on her. But patient feels that in general her anxiety is well controlled. Caregiver reports that patient stopped breathing during sleeping, frightening her and the patient's spouse. Patient reports she does have apnea, and has a CPAP machine "somewhere." HAND SALTER asked if she new how to use it, and she thinks she might remember. HAND SALTER provided teaching about DHEERAJ and using CPAP; HH RN can provide assistance in setting it up if patient finds her unit. Social History - Living Situation Living arrangement: At home Living Situation: With spouse/s.o., With caregiver(s) Support System: Lives with spouse of 51+ years, Renaldo. Renaldo has literacy disabilities. Their adopted son lives in [place]. They have privately paid caregiver support between 3-5 hours daily: Elisha Rice,W Sammie Ham, F Horace Fish Yolanda's last week is next week, due to health and an upcoming procedure. The hope is that she can return in 3-6 months. Patient and spouse are following up on finding a replacement. Medications/Allergies - Medications Home Medications: Ambulatory Orders Medication Instructions Recorded Confirmed Venlafaxine [Effexor] 75 mg PO DAILY 07/10/13 11/20/18 Furosemide [Lasix] 40 mg PO DAILY 12/28/15 11/20/18 Metoprolol Succinate 12.5 mg PO DAILY 07/27/16 11/20/18 Digoxin 125 mcg PO DAILY 09/08/17 11/20/18 Ipratropium/Albuterol Sulfate 1 unit INH BID PRN 09/08/17 11/20/18 [Iprat-Albut 0.5-3(2.5) mg/3 ml] Oxycodone HCl 5 mg PO BID MDD A.M. and 09/08/17 11/20/18 noon/midday Nystatin 1 applic TP BID 10/13/17 11/20/18 Oxybutynin Chloride 5 mg PO BID PRN MDD bladder spasms 10/13/17 11/20/18 Warfarin Sodium 4 mg PO .Elisha Case,TH,F 10/13/17 08/24/18 traZODone [Desyrel] 50 mg PO .QHS PRN 11/09/17 11/20/18 OLANZapine [Zyprexa] 5 mg PO BID 11/15/17 11/20/18 Senna [Senokot] 1 - 2 tab PO BID PRN 01/10/18 11/20/18 fentaNYL [Fentanyl 25mcg patch] 25 mcg TD Q72H 01/10/18 11/20/18 Acetaminophen 500 - 1,000 mg PO Q6H PRN 02/23/18 11/20/18 Warfarin Sodium 1 ea PO .VARIABLE DAYS 02/23/18 08/24/18 Gabapentin 300 mg PO BID 03/14/18 11/20/18 Omeprazole 20 mg PO DAILY PRN 03/14/18 11/20/18 Diclofenac Sodium [Voltaren] 2 - 4 g TOP QID PRN MDD 32g max 07/31/18 11/20/18 daily Cbd Topical Cream 1 ea TOP QID PRN 11/20/18 Oxycodone HCl 10 mg PO QPM 11/20/18 11/20/18 Polyethylene Glycol 3350 [Miralax] 0.25 - 1 ea PO DAILY PRN MDD 1/4 11/20/18 11/20/18 to 1 scoop PRN - Allergies Allergies/Adverse Reactions: Allergies Allergy/AdvReac Type Severity Reaction Status Date / Time penicillin G Allergy Intermediate Unknown Verified 02/13/18 16:56 Sulfa (Sulfonamide Allergy Intermediate Rash Verified 02/13/18 16:56 Antibiotics) dyazides Allergy Intermediate Unknown Uncoded 02/13/18 16:56 Review of Systems - Constitutional Constitutional: reports: Weakness, Weight stable (Unable to weigh; weight appears to be stable. Morbid obesity). denies: Poor appetite - Ears, Nose & Throat Ears, Nose & Throat: reports: Hearing loss - Cardiovascular Cardiovascular: reports: Edema (RUE lymphedema syndrome s/p R mastectomy 1994. Chronic 3+ BLE edema) - Respiratory Respiratory: denies: Cough, Wheezing, SOB at rest (improved) - Gastrointestinal Gastrointestinal: reports: Bloody stools, Good appetite - Genitourinary Genitourinary: reports: Other (indwelling Adams catheter) - Musculoskeletal Musculoskeletal: reports: Back pain (improved), Assistive devices, Transfer issues (Nancy lift). denies: Joint pain (improved) - Neurological Neurological: reports: General weakness, Memory problems - Psychiatric Psychiatric: denies: Depression, Anxiety - Hematologic/Lymphatic Hematologic/Lymphatic: reports: Other (atrial fibrillation on Coumadin) Physical Exam - Vital Signs Temperature: 96.5 F Pulse Rate: 73 O2 Saturation: 95 (room air) Blood Pressure: 159/75 (wrist cuff) - Physical Exam General Appearance: positive: No acute distress, Alert Eyes Bilateral: positive: Normal inspection ENT: positive: No signs of dehydration Neck: positive: Trachea midline Cardiovascular: positive: Irregular, Systolic murmur (3/6) Respiratory: positive: Chest non-tender, No respiratory distress. negative: Diminished in bases, Wheezes, Rales, Rhonchi Abdomen: positive: Non-tender, Soft, Abnml bowel sounds (difficult auscultation due to body habitus), Obese Skin: positive: Pallor, Wound (RLE, anterior: clean, dry bandage) Extremities: positive: Pedal edema (chronic, 3+, skin tight, shiny on RLE) Neurologic/Psychiatric: positive: Oriented x3, Mood/affect nml Palliative Care - POLST Patient has POLST: Yes POLST Status: DNR, Comfort Measures Pain: No pain ("very little pain these days"), Pain improved Tiredness/Fatigue: Moderate (4-6) (sleeps a lot) Drowsiness/Sedation: Moderate (4-6) Nausea: None Depression: None (denies) Anxiety: None (denies) Dyspnea: Comment (improved in the past week) Anorexia: None Constipation: Opoid induced, Managed, Comment (has h/o of loose stools) Performance Status: bedbound transferred to wheelchair 2-3x last week for 20-30 minutes outside requires full assist to reposition self indwelling Adams catheter - Palliative Care Discussion: Main goal and discussion today is around pain medication management. Her oxycodone dosing for breakthrough pain has recently been decreased and pain is well managed, with improvement in her mental alertness. Impression and Recommendations - Palliative Care Impression: 73-year-old bed-bound female, former Hospice patient, on long-term opioid for chronic and arthritic pain in joints. Chronic pain is well managed at new, lower dosing of PRN opioids. Home Health nursing continues wound care, medication management, and Adams catheter care. Palliative care continues to provide oversight, support, and monitoring. Recommendations/Counseling Done: Chronic joint pain: Improved, patient reports very little pain these days. The PRN oxycodone dosing has been adjusted 3 times since August, and is currently controlling her chronic pain well, and with less sedation and side effects. It is now 5mg PRN a.m. and noon, and 10mg PRN p.m. She continues with Fentanyl 25mcg patch. HAND SALTER wrote refill scripts for both today, ok to fulfill 12/01/18 and left them with the patient. She also has Diclofenac (Voltaren) 1% gel,, CBD ointment, and Tylenol PRN Consulted PARTY DEMONSTRATOR [place]: no concerning opioid prescribing activity. Anxiety and agitation: Is at baseline, patient denies depression and anxiety. Continue Olanzapine 5mg BID. Constipation: Managed with senna and Miralax PRN. Patient has history of loose stools so doesn't take them routinely. Advance care plan: DNR and comfort care. Patient amendable to hospital for reversible conditions. HH RN continues to manage wounds, indwelling Adams catheter, medicine, including warfarin and INR. Follow up 2-3 months and as needed. Time Spent: 45 minutes were spent with more than 50% of the time spent on counseling, education, and coordination of care.
== END 2018-11-20 16:32 | disposition home or self-care (01) ==
LOC: PC 16:31
PROVIDERS: ATTEND Nurse Practitioner
DX: Z51.5 Encounter for palliative care (principal); G89.29 Other chronic pain; M06.9 Rheumatoid arthritis, unspecified; F41.9 Anxiety disorder, unspecified; K59.03 Drug induced constipation; T40.2X5D Adverse effect of other opioids, subsequent encounter; I42.6 Alcoholic cardiomyopathy; J44.9 Chronic obstructive pulmonary disease, unspecified; G47.30 Sleep apnea, unspecified; E66.01 Morbid (severe) obesity due to excess calories; I97.2 Postmastectomy lymphedema syndrome; I48.91 Unspecified atrial fibrillation; Z87.440 Personal history of urinary (tract) infections; Z96.0 Presence of urogenital implants; Z74.01 Bed confinement status; Z85.3 Personal history of malignant neoplasm of breast; Z90.13 Acquired absence of bilateral breasts and nipples; Z79.01 Long term (current) use of anticoagulants; Z66 Do not resuscitate
CPT/HCPCS: 99349

== ENCOUNTER 2018-11-23 12:30 | Outpatient (CLI) | payer MEDICARE ==
[2018-11-23 17:18] LABS: BASOPHILS % (AUTO) 0.5 %; EOSINOPHILS # (AUTO) 0.1 10^3/uL (0.0-0.7); EOSINOPHILS % (AUTO) 1.4 %; HGB - HEMOGLOBIN 7.3 g/dL (12.0-16.0); LYMPHOCYTES % (AUTO) 23.4 %; MEAN CORPUSCULAR HGB CONC 31.1 g/dL (32.0-36.0); MEAN CORPUSCULAR VOLUME 103.1 fL (81.0-99.0); MONOCYTES # (AUTO) 0.3 10^3/uL (0.0-1.0); MONOCYTES % (AUTO) 6.9 %; NEUTROPHILS # (AUTO) 2.8 10^3/uL (1.5-6.6); NEUTROPHILS % (AUTO) 65.3 %; PLT - PLATELET COUNT 119 10^3/uL (130-450); RED BLOOD COUNT 2.28 10^6/uL (4.20-5.40); RED CELL DISTRIBUTION WIDTH 18.1 % (12.0-15.0); WHITE BLOOD COUNT 4.3 x10^3/uL (4.8-10.8)
[2018-11-23 17:24] LABS: CALCIUM 9.3 mg/dL (8.5-10.3); CREATININE 0.6 mg/dL (0.4-1.0)
== END 2018-11-23 23:59 | disposition home or self-care (01) ==
LOC: LAB.F 12:30
PROVIDERS: ATTEND Nurse Practitioner
DX: I42.6 Alcoholic cardiomyopathy (principal)
CPT/HCPCS: 36415; 80048; 85025

== ENCOUNTER 2019-01-07 17:26 | Outpatient (CLI) | payer MEDICARE ==
--- NOTE | 2019-01-07 17:51 | CONSULTATION NOTE ---
Palliative Care Follow Up - Referral Referring Provider: Hattie Pandey PA-C Time of Visit: 01/07/2019. 12:00 - 13:00 Referral setting: Home Referral Reason: Hemolytic anemia - Information Sources Records reviewed: Previous records reviewed History/Review of Systems obtained from: Patient, Family Exam limitations: Clinical condition (mild short-term memory deficits) - History of Present Illness Update Brief HPI Update: 73 year old bedbound female, former Hospice patient, bedbound with chronic arthritis pain. 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 coli UTI, now indwelling Adams catheter. Patient had labs in November,showing low H&H (7.3, 23.5) and low WBC (4.3) and RBC (2.28), a decrease from labs in July (H&H 11.6, 33.4 and WBC 6.2, RBC 3.83). Labs were redrawn December 28, H& remains lwa (7.5 and 24.5), WBC dropped further to 3.9, and RBC 2.38. Reticulocytes are elevated 3.43. B12, folate, iron studies were all unremarkable. Occult blood test was negative. Patient denies drinking any alcohol, agrees. Did discuss the labs with Dr Apurva Bedoya in oncology, and that the patient is essentially bed- and housebound, and likely unable to make clinic visits. Dr Bedoya suggested that if the patient wanted further workup, to order Dedra direct and non-direct, and haptoglobin, and she would review the results with [facility] provider, for next steps. And if patient is not able or interested in further workup, she could recommend steroid treatment and dosing for symptom control. Oncology would not be able to prescribe or treat without seeing the patient directly. Discussed the patient's November and December labs today with the patient and spouse, that it appears to be hemolytic anemia and one possible etiology is lymphoma, but that further tests are needed. Patient is agreeable to running additional labs. She wants to think about whether she would want or be able to leave the house for future medical appointments, labs, etc. Patient has noted she is more fatigued, spending her afternoons sleeping, which she is not happy about. She does note that her chronic musculoskeletal pain is being well controlled on the current regimen of oxycodone 5mg in morning and midday, and 10mg in the evening. She has fentanyl 25mcg patch for long-acting pain control. Patient reports a bad episode a few weeks ago of constipation requiring disimpaction, and since then she has been regularly taking Miralax, a half dose. She reports regular bowel movements currently. She remains on Home Health nursing for Adams catheter maintenance and chronic lower extremity wound management. Social History - Living Situation Living arrangement: At home Living Situation: With spouse/s.o. Support System: Lives with spouse of 51+ years, Renaldo. Renaldo has literacy disabilities. Their adopted son lives in [place]. They have privately paid caregiver support between 3-5 hours daily. Yolanda, their long-time caregiver, is currently out on medical leave. Medications/Allergies - Medications Home Medications: Ambulatory Orders Medication Instructions Recorded Confirmed Venlafaxine [Effexor] 75 mg PO DAILY 07/10/13 01/07/19 Furosemide [Lasix] 40 mg PO DAILY 12/28/15 01/07/19 Metoprolol Succinate 12.5 mg PO DAILY 07/27/16 01/07/19 Digoxin 125 mcg PO DAILY 09/08/17 01/07/19 Ipratropium/Albuterol Sulfate 1 unit INH BID PRN 09/08/17 01/07/19 [Iprat-Albut 0.5-3(2.5) mg/3 ml] Oxycodone HCl 5 mg PO BID MDD A.M. and 09/08/17 01/07/19 noon/midday Nystatin 1 applic TP BID 10/13/17 01/07/19 Oxybutynin Chloride 5 mg PO BID PRN MDD bladder spasms 10/13/17 01/07/19 Warfarin Sodium 4 mg PO .M,T,TH,F 10/13/17 01/07/19 traZODone [Desyrel] 50 mg PO .QHS PRN 11/09/17 01/07/19 OLANZapine [Zyprexa] 5 mg PO BID 11/15/17 01/07/19 Senna [Senokot] 1 - 2 tab PO BID PRN 01/10/18 01/07/19 fentaNYL [Fentanyl 25mcg patch] 25 mcg TD Q72H 01/10/18 01/07/19 Acetaminophen 500 - 1,000 mg PO Q6H PRN 02/23/18 01/07/19 Warfarin Sodium 1 ea PO .VARIABLE DAYS 02/23/18 01/07/19 Gabapentin 300 mg PO BID 03/14/18 01/07/19 Omeprazole 20 mg PO DAILY PRN 03/14/18 01/07/19 Diclofenac Sodium [Voltaren] 2 - 4 g TOP QID PRN MDD 32g max 07/31/18 01/07/19 daily Cbd Topical Cream 1 ea TOP QID PRN 11/20/18 01/07/19 Oxycodone HCl 10 mg PO QPM 11/20/18 01/07/19 Polyethylene Glycol 3350 [Miralax] 0.25 - 1 ea PO DAILY PRN MDD 111/20/18 01/07/19 to 1 scoop PRN - Allergies Allergies/Adverse Reactions: Allergies Allergy/AdvReac Type Severity Reaction Status Date / Time penicillin G Allergy Intermediate Unknown Verified 02/13/18 16:56 Sulfa (Sulfonamide Allergy Intermediate Rash Verified 02/13/18 16:56 Antibiotics) dyazides Allergy Intermediate Unknown Uncoded 02/13/18 16:56 Review of Systems - Constitutional Constitutional: reports: Fatigue, Weakness. denies: Poor appetite - Ears, Nose & Throat Ears, Nose & Throat: reports: Hearing loss (mild) - Cardiovascular Cardiovascular: reports: Edema (chronic RUE lymphedema syndrome s/p R mastectomy 1994. Chronic 3+ non-pitting lower extremity edema), Other (bedbound) - Respiratory Respiratory: denies: Cough, Sputum production, SOB at rest - Gastrointestinal Gastrointestinal: reports: Constipation (bad episode a few weeks ago, but normal now). denies: Abdominal pain, Nausea - Genitourinary Genitourinary: reports: Other (Adams catheter). denies: Dysuria - Musculoskeletal Musculoskeletal: reports: Limited range of motion, Transfer issues (mostly bedbound, occasionally gets transferred out of bed and into wheelchair for short periods). denies: Joint pain (controlled on current regimen of opioids and gabapentin) - Integumentary Integumentary: reports: Dryness - Neurological Neurological: reports: General weakness, Memory problems - Psychiatric Psychiatric: reports: Anxiety (has problems sleeping about 1x/month, uses distraction, like TV). denies: Depression - Hematologic/Lymphatic Hematologic/Lymphatic: reports: Anemia (hemolytic) Physical Exam - Vital Signs Temperature: 96.9 F Pulse Rate: 72 O2 Saturation: 96 (room air) Blood Pressure: 103/50 (wrist cuff) - Physical Exam General Appearance: positive: No acute distress, Alert Eyes Bilateral: positive: Normal inspection ENT: positive: No signs of dehydration Neck: positive: Trachea midline Cardiovascular: positive: Irregular, Systolic murmur (2/6) Respiratory: positive: Chest non-tender, No respiratory distress, Diminished throughout Abdomen: positive: Non-tender, Soft, Obese Skin: positive: Pallor. negative: Jaundice Extremities: positive: Pedal edema (3+ non pitting edema in Bilat LEs. 3+ in RUE, chronic lymphedema) Neurologic/Psychiatric: positive: Oriented x3, Mood/affect nml Palliative Care - POLST Patient has POLST: Yes POLST Status: DNR, Selective Treatment Pain: Pain improved Tiredness/Fatigue: Moderate (4-6) Drowsiness/Sedation: None Nausea: None Depression: None Anxiety: Mild (1-3) Dyspnea: None Anorexia: None Sleep: Other (once a month has problems sleeping, but generally sleeps well) Constipation: Opoid induced, Managed Performance Status: bedbound occasionally gets transferred to wheelchair requires full assist for any repositioning, transfers indwelling Adams catheter - Palliative Care Discussion: Patient expressed some concern about this new diagnosis of hemolytic anemia. Provided reassurance that she has time to consider, we can go ahead and run some more labs, and palliative care will discuss with hematology/oncology about next steps, whether she would want further workup or symptom management. Also discussed her goals of care and existing POLST which is DNR and comfort care, dating from her time as a Hospice patient. Patient agrees that she would want selective treatment for reversible conditions, and with this new anemia, she would like to know her treatment options. So we have signed a new POLST: DNR, selective treatment. Results - Lab Results Lab results reviewed: Yes Lab and Imaging Results: 12/28/18 LABS: WBC 3.9 L RBC 2.38 L HGB 7.5 L HCT 24.5 L MCV 102.9 H MCH 31.5 H MCHC 30.6 L RDW 17.2 H PLT 122 L Lymph # 0.9 L Reticulocytes % 3.43 H (0.5 - 2.3) Ferritin 163.9 Norm B12 238 Norm Folate 15.25 Norm Occult blood : Negative 11/23/18 LABS: Na 138 Norm K+ 4.5 Norm Cl 100 L Co2 27 BUN 12 Norm Creat 0.6 Norm GFR 98 Norm Glu 146 H Ca 9.3 Norm Impression and Recommendations - Palliative Care Impression: 73-year-old bed-bound female, on long-term opioids for chronic and arthritic pain in joints, chronic pain is well managed. Home Health nursing continues wound care, medication management, and Adams catheter care. Patient has new hemolytic anemia etiology unknown, wants to go forward with follow-up labs. Palliative care will continue to provide oversight, support, and monitoring. Recommendations/Counseling Done: Chronic joint pain: Much improved, patient reports very little pain these days since adjusting the oxycodone dosage to 5mg morning and midday, and 10mg in the evening. She also has Fentanyl 25mcg patch and gabapentin, Diclofenac (Voltaren) gel, CBD ointment, and Tylenol as needed. SW[employer] SWALLOWER wrote refill script for oxycodone refillable immediately, and fentanyl patches, ok to refill next week, 01/17/2019. Left the script with the patient's spouse. Consulted DIRECTOR OF EXTENSION WORK [place]: no concerning opioid prescribing activity. Anemia, hemolytic: Low H&H, WBC, RBC and high reticulocytes, etiology unknown, ordering further labs: Dedra direct and indirect, and haptoglobin at Dr Apurva Bedoya's recommendation. Dr Bedoya is agreeable to review labs with Palliative Care provider and recommend symptom treatment and next steps. Constipation: Improved. Continues senna and Miralax 1/4 to 1/2 dose. Advance care plan: New POLST created: DNR and selective treatment, patient wants hospitalization for reversible conditions. HH RN continues to manage chronic wounds, indwelling Adams catheter, medicine, including warfarin and INR. Time Spent: 60 minutes were spent with more than 50% of the time spent on counseling, education, providing anticipatory guidance, and coordination of care.
== END 2019-01-07 17:27 | disposition home or self-care (01) ==
LOC: PC 17:26
PROVIDERS: ATTEND Nurse Practitioner
DX: Z51.5 Encounter for palliative care (principal); D59.9 Acquired hemolytic anemia, unspecified; G89.29 Other chronic pain; K59.03 Drug induced constipation; T40.2X5A Adverse effect of other opioids, initial encounter; Z79.899 Other long term (current) drug therapy; Z79.891 Long term (current) use of opiate analgesic; Z74.01 Bed confinement status; Z66 Do not resuscitate
CPT/HCPCS: 99350

== ENCOUNTER 2019-01-08 11:45 | Outpatient (CLI) | payer MEDICARE ==
[2019-01-08 19:10] LABS: ALBUMIN 3.2 g/dL (3.2-5.5); ALKALINE PHOSPHATASE 172 IU/L (42-121); ALT ALANINE AMINOTRANSFERASE 40 IU/L (10-60); AST ASPARTATE AMINOTRANSFERASE 38 IU/L (10-42); BILIRUBIN,TOTAL 0.3 mg/dL (0.2-1.0); TOTAL PROTEIN 6.5 g/dL (6.7-8.2)
[2019-01-08 19:27] LABS: BILIRUBIN,DIRECT < 0.1 mg/dL (0.1-0.5)
== END 2019-01-08 23:59 | disposition home or self-care (01) ==
LOC: LAB.R 11:45
PROVIDERS: ATTEND Nurse Practitioner
DX: D59.9 Acquired hemolytic anemia, unspecified (principal)
CPT/HCPCS: 80076; 83010; 86850; 86880

== ENCOUNTER 2019-01-15 11:50 | Outpatient (CLI) | payer MEDICARE ==
--- NOTE | 2019-01-15 15:20 | CONSULTATION NOTE ---
Palliative Care Follow Up - Referral Referring Provider: Hattie Mehta PA-C Time of Visit: [place] 01/15/2019. 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 coli UTI, now indwelling Adams catheter. Patient had labs in November,showing low H&H (7.3, 23.5) and low WBC (4.3) and RBC (2.28), a decrease from labs in July (H&H 11.6, 33.4 and WBC 6.2, RBC 3.83). Labs were redrawn December 28, H& remains low (7.5 and 24.5), WBC dropped further to 3.9, and RBC 2.38. Reticulocyte % elevated 3.43, but absolute reticuocytes are normal (0.082). B12, folate, iron studies were all unremarkable. Occult blood test was negative. Did discuss the labs with Dr Apurva Bedoya in hematology, she recommended further labs Dedra direct and indirect, and also haptoglobin, and she would review results with Palliative Care provider. 01/08/19 Dedra direct and indirect were negative. 01/08/19 haptoglobin is elevated 279 (range is 43-212 mg/dL) Patient's kidney function is normal: Cr and BUN normal, GFR 98. Today reviewed all the labs again with Dr Bedoya. She said for further workup, patient would need to make a clinic appointment. As for her anemia, for symptom management she can consider a blood transfusion, which would also require at trip into the MAC. Did discuss this with patient today. Her spouse was not present at the visit. Explained that the various labs were inconclusive as far as pinpointing the acute drop in her H&H from July to November. Her choices are to pursue further workup with hematology, or have a transfusion for the anemia, both of these involving leaving her home, and patient has been bed-bound long-term. The third option is to wait and see, and monitor her symptoms and run labs again in a few months. Patient doesn't feel symptomatic at this point, apart from general, moderate fatigue and sleepiness in the afternoons. She is feeling pretty stable in general, so at this time she is not interested in either following up with hematology, or going in for a transfusion. She would like to monitor her status, and run labs/guaiac again in a few months. Social History - Living Situation Living arrangement: At home Living Situation: With spouse/s.o. Support System: Lives with spouse of 51+ years, Renaldo. Renaldo has literacy disabilities. Their adopted son lives in [place]. They have privately paid caregiver support between 3-5 hours daily. Yolanda, their long-time caregiver, is currently out on medical leave. Alisa has replaced her. On long-term Home Health RN service for indwelling catheter and chronic, non- healing wounds. Medications/Allergies - Medications Home Medications: Ambulatory Orders Medication Instructions Recorded Confirmed Venlafaxine [Effexor] 75 mg PO DAILY 07/10/13 01/07/19 Furosemide [Lasix] 40 mg PO DAILY 12/28/15 01/07/19 Metoprolol Succinate 12.5 mg PO DAILY 07/27/16 01/07/19 Digoxin 125 mcg PO DAILY 09/08/17 01/07/19 Ipratropium/Albuterol Sulfate 1 unit INH BID PRN 09/08/17 01/07/19 [Iprat-Albut 0.5-3(2.5) mg/3 ml] Oxycodone HCl 5 mg PO BID MDD A.M. and 09/08/17 01/07/19 noon/midday Nystatin 1 applic TP BID 10/13/17 01/07/19 Oxybutynin Chloride 5 mg PO BID PRN MDD bladder spasms 10/13/17 01/07/19 Warfarin Sodium 4 mg PO .M,T,TH,F 10/13/17 01/07/19 traZODone [Desyrel] 50 mg PO .QHS PRN 11/09/17 01/07/19 OLANZapine [Zyprexa] 5 mg PO BID 11/15/17 01/07/19 Senna [Senokot] 1 - 2 tab PO BID PRN 01/10/18 01/07/19 fentaNYL [Fentanyl 25mcg patch] 25 mcg TD Q72H 01/10/18 01/07/19 Acetaminophen 500 - 1,000 mg PO Q6H PRN 02/23/18 01/07/19 Warfarin Sodium 1 ea PO .VARIABLE DAYS 02/23/18 01/07/19 Gabapentin 300 mg PO BID 03/14/18 01/07/19 Omeprazole 20 mg PO DAILY PRN 03/14/18 01/07/19 Diclofenac Sodium [Voltaren] 2 - 4 g TOP QID PRN MDD 32g max 07/31/18 01/07/19 daily Cbd Topical Cream 1 ea TOP QID PRN 11/20/18 01/07/19 Oxycodone HCl 10 mg PO QPM 11/20/18 01/07/19 Polyethylene Glycol 3350 [Miralax] 0.25 - 1 ea PO DAILY PRN MDD 06/0811/20/18 01/07/19 to 1 scoop PRN - Allergies Allergies/Adverse Reactions: Allergies Allergy/AdvReac Type Severity Reaction Status Date / Time penicillin G Allergy Intermediate Unknown Verified 02/13/18 16:56 Sulfa (Sulfonamide Allergy Intermediate Rash Verified 02/13/18 16:56 Antibiotics) dyazides Allergy Intermediate Unknown Uncoded 02/13/18 16:56 Review of Systems - Constitutional Constitutional: reports: Fatigue (moderate, in afternoons), Weight stable, Other (bedbound). denies: Poor appetite - Ears, Nose & Throat Ears, Nose & Throat: reports: Hearing loss (mild) - Cardiovascular Cardiovascular: reports: Edema (chronic RUE lymphedema syndrome s/p R mastectomy 1994. Chronic 3+ non-pitting LE edema) - Gastrointestinal Gastrointestinal: reports: Good appetite, Other. denies: Constipation, Change in bowel habits, Rectal bleeding - Genitourinary Genitourinary: reports: Other (Adams catheter). denies: Dysuria - Musculoskeletal Musculoskeletal: reports: Limited range of motion, Transfer issues (bedbound, occasionally transferred out of bed into wheelchair for short periods) - Integumentary Integumentary: reports: Dryness - Neurological Neurological: reports: General weakness, Memory problems - Psychiatric Psychiatric: reports: Anxiety, Other (normally sleeps well but occasionally has a poor night sleeping due to anxiety) - Hematologic/Lymphatic Hematologic/Lymphatic: reports: Anemia (H&H 7.5 and 24.5 on 12/28/18. Iron s tudies normal.) - All Other Systems All Other Systems: reports: Reviewed and negative Physical Exam - Vital Signs Temperature: 96.7 F Pulse Rate: 76 O2 Saturation: 95 (room air) Blood Pressure: 145/71 (wrist cuff) - Physical Exam General Appearance: positive: No acute distress, Alert Eyes Bilateral: positive: Normal inspection ENT: positive: No signs of dehydration Neck: positive: Trachea midline Cardiovascular: positive: Regular rate & rhythm, No gallop, Systolic murmur (07/11) Respiratory: positive: Chest non-tender, No respiratory distress, Diminished in bases (due to body habitus), Other (clear breath sounds) Abdomen: positive: Non-tender, Soft, Abnml bowel sounds (hypoactive), Obese Skin: positive: Pallor, Wound (RLE chronic non-healing cellulitis is resolving, per HH RN, clean, dry, intact dressing just placed), Pressure wound (Stage I coccys resolving per HH RN. Zinc protective cream used), Other (Fungal infection in pannus resolving, with Nystatin) Neurologic/Psychiatric: positive: Oriented x3, Mood/affect nml Palliative Care - POLST Patient has POLST: Yes POLST Status: DNR, Selective Treatment Pain: Pain improved (pain well controlled on current opioid regimen) Tiredness/Fatigue: Moderate (4-6) (in afternoons) Nausea: None Depression: Moderate (4-6) (reports it is at baseline. Discussed distraction, breathing techniques to calm herself, visualization, prayer, meditation.) Anxiety: Moderate (4-6), Comment (occasionally. Uses distraction to calm herself.) Dyspnea: Mild (1-3), Comment (occasionally) Anorexia: None Sleep: Sleeps well, Other (does have a poor night of sleep every month or so) Constipation: Opoid induced, Managed Performance Status: bedbound, with occasional transfers to wheelchair full assistance required for all repositioning, transfers indwelling Adams catheter - Palliative Care Discussion: Patient has been concerned about the new anemia with several different blood draws and the worry of not knowing what the cause is. Labs results have been indefinite, and her choice now is to pursue further workup with hematology, get a blood transfusion for symptoms, or wait and see and redraw labs in a few months. She has chosen the latter, because she is not feeling ill or unpleasantly fatigued. Also it is a taxing and considerable effort to leave the home due to her bedbound status. Patient reports she is not feeling anxious about the results and the uncertainty, and feels comfortable with monitoring for awhile and checking her labs again at a later time. Patient has recently updated her POLST to reflect her current goals of care. She wants selective hospitalization for reversible conditions. Results - Lab Results Lab results reviewed: Yes Lab and Imaging Results: Dedra: Gasper Poly results (direct): Negative Antibody results (indirect): Negative Haptoglobin: 279 high (normal range is 43-212 mg/dL) Impression and Recommendations - Palliative Care Impression: 73-year-old bed-bound female, on long-term opioids for chronic and arthritic pain in joints, chronic pain is well managed. Home Health nursing continues wound care, medication management, and Adams catheter care. Patient has new anemia etiology unknown, labs drawn so far are inconclusive. Patient declines further workup at this time, and also declines blood transfusion. Will redraw labs in a few months. Palliative care will continue to provide oversight, support, and monitoring. Recommendations/Counseling Done: Anemia, etiology unknown: Patient has new anemia (H&H 7.5, 24.5) etiology unknown and labs are inconclusive. Patient not interested in transfusion at this time. Also declines further workup with hematology. Agreeable to monitor her symptoms and recheck basic labs and guaiac in 3 months. Chronic joint pain: Well controlled on current regimen of oxy 5mg a.m., midday, and 10mg p.m. and Fentanyl 25mcg patch. Also gabapentin, Diclofenac (Voltaren) gel, CBD ointment, and Tylenol as needed. Advance care plan: DNR and selective treatment, hospitalization for reversible conditions. HH RN continues to manage chronic wounds, indwelling Adams catheter, medicines, including warfarin and INR. Time Spent: 25 minutes were spent with more than 50% of the time spent on counseling, education, and providing anticipatory guidance.
== END 2019-01-15 11:51 | disposition home or self-care (01) ==
LOC: PC 11:50
PROVIDERS: ATTEND Nurse Practitioner
DX: Z51.5 Encounter for palliative care (principal); D64.9 Anemia, unspecified; G89.29 Other chronic pain; M06.9 Rheumatoid arthritis, unspecified; Z79.899 Other long term (current) drug therapy; Z79.891 Long term (current) use of opiate analgesic; Z74.01 Bed confinement status; Z66 Do not resuscitate
CPT/HCPCS: 99348

== ENCOUNTER 2019-02-27 14:10 | Outpatient (CLI) | payer MEDICARE ==
--- NOTE | 2019-02-27 20:38 | CONSULTATION NOTE ---
Palliative Care Follow Up - Referral Referring Provider: Hattie Pandey PA-C Time of Visit: [id number] Referral setting: Home Referral Reason: Chronic Pain/anemia/anxiety/alchololic cardiomyopathy - Information Sources Records reviewed: RN notes reviewed, Previous records reviewed History/Review of Systems obtained from: Patient, Family ( Renaldo present) Exam limitations: Clinical condition (patient with STM issues/anxiety) - History of Present Illness Update Brief HPI Update: This is a 74-year-old woman who has multiple comorbidities and has been essentially bedbound for over 18 months. 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 She was hospitalized for this in April 2018. Patient is supported and able to manage with the help of the home health RN, paid caregivers, and her . Most recently she presented with abnormal lab results, showing a low H&H 7.3/23.5, with further testing and follow-up with Dr. Apurva Bedoya in hematology, unable to determine the etiology without further work- up. Iron studies were negative, as well as occult blood test. In conversation with previous palliative care [facility], patient has declined trip up to [facility], and other intervention would be transfusion for comfort if needed. Patient is bedbound, occasional Nancy lift into her wheelchair, her bed is set up in the middle of her living room. She reports right now she feels like she is at a plateau, she reports her pain is chronic and attributes it to her RA/osteoarthritis. Describes it mostly as pain all over, but more centralized in her knees. She does report hands and feet with history of neuropathy, but are currently well controlled. She is currently on fentanyl 25 mcg patch, as well as scheduled oxycodone during the day, she feels this is currently working for her. Patient identifies her most distressful symptom is actually anxiety, she reports she has been a worrier all of her life. She does admit to intermittent confusion, but was able to engage and participate in conversation today. Overall she feels like everything actually going okay. Social History - Living Situation Living arrangement: At home Living Situation: With spouse/s.o. Support System: There has been a history of challenges meeting patient's care needs in her current setting. At this point they do have stable caregiving, with alternating 2-3 caregivers 4 hours a day. Their main caregiver, which appears she has a pretty strong connection to, is currently on leave. Her and her have been 51 years, and lived [place] [facility] for [place] [address]. They do have 1 adopted son, but he is in [place] is a defensive fire control systems operator and not involved in her care. They identify neighbors is helpful as well, and feel currently support is adequate. Patient's care needs are getting met. She continues to struggle with skin issues, is the main caregiver.He has been challenged with the level of overwhelming tasks that time. Medications/Allergies - Medications Home Medications: Ambulatory Orders Medication Instructions Recorded Confirmed Venlafaxine [Effexor] 75 mg PO DAILY 07/10/13 02/27/19 Furosemide [Lasix] 40 mg PO DAILY 12/28/15 02/27/19 Metoprolol Succinate 12.5 mg PO DAILY 07/27/16 02/27/19 Digoxin 125 mcg PO DAILY 09/08/17 02/27/19 Oxycodone HCl 5 mg PO BID MDD A.M. and 09/08/17 02/27/19 noon/midday Nystatin 1 applic TP BID 10/13/17 02/27/19 Oxybutynin Chloride 5 mg PO BID PRN MDD bladder spasms 10/13/17 02/27/19 Warfarin Sodium 4 mg PO .M,T,TH,F 10/13/17 02/27/19 traZODone [Desyrel] 50 mg PO .QHS PRN 11/09/17 02/27/19 OLANZapine [Zyprexa] 5 mg PO BID 11/15/17 02/27/19 Senna [Senokot] 1 - 2 tab PO BID PRN 01/10/18 02/27/19 fentaNYL [Fentanyl 25mcg patch] 25 mcg TD Q72H 01/10/18 02/27/19 Warfarin Sodium 1 ea PO .VARIABLE DAYS 02/23/18 02/27/19 Gabapentin 300 mg PO BID 03/14/18 02/27/19 Omeprazole 20 mg PO DAILY PRN 03/14/18 02/27/19 Cbd Topical Cream 1 ea TOP QID PRN 11/20/18 02/27/19 Oxycodone HCl 10 mg PO QPM 11/20/18 02/27/19 Polyethylene Glycol 3350 [Miralax] 0.25 - 1 ea PO DAILY PRN MDD 1/4 11/20/18 02/27/19 to 1 scoop PRN - Allergies Allergies/Adverse Reactions: Allergies Allergy/AdvReac Type Severity Reaction Status Date / Time penicillin G Allergy Intermediate Unknown Verified 02/13/18 16:56 Sulfa (Sulfonamide Allergy Intermediate Rash Verified 02/13/18 16:56 Antibiotics) dyazides Allergy Intermediate Unknown Uncoded 02/13/18 16:56 Review of Systems - Constitutional Constitutional: reports: Fatigue. denies: Fever, Chills - Eyes Eyes: reports: Vision loss (worsening for reading), Corrective lenses - Ears, Nose & Throat Ears, Nose & Throat: reports: Dry mouth, Other (occasional trouble with swallowing of pills) - Cardiovascular Cardiovascular: denies: Chest pain - Respiratory Respiratory: denies: Cough, SOB at rest - Gastrointestinal Gastrointestinal: reports: Constipation (patient fearful of constipation; took some immodium (chronic diarrhea) on third day), Diarrhea (patient reports / confirms liquid/soft stools often several times a day), Good appetite. denies: Nausea, Reflux/heartburn - Genitourinary Genitourinary: reports: Other (has estevez catheter; oxybutin for frequent bladder spasms) - Musculoskeletal Musculoskeletal: reports: Back pain, Muscle aches, Stiffness, Limited range of motion, Muscle weakness, Joint pain, Transfer issues (nancy to w/c occasionally) - Integumentary Integumentary: reports: Rash, Dryness - Neurological Neurological: reports: General weakness, Memory problems - Psychiatric Psychiatric: reports: Depression, Anxiety - Hematologic/Lymphatic Hematologic/Lymphatic: reports: Anemia - All Other Systems All Other Systems: reports: Other (limited ROS both patient/ poor historians) Physical Exam - Vital Signs Temperature: 97.0 C Pulse Rate: 76 Respiratory Rate: 18 O2 Saturation: 97 (ra @ rest) Blood Pressure: 114/62 - Physical Exam General Appearance: positive: No acute distress, Alert, Anxious (meeting new [facility]; decreased anxiety end of visit) Eyes Bilateral: positive: Normal inspection ENT: positive: No signs of dehydration Neck: positive: No JVD, Trachea midline Respiratory: positive: No respiratory distress, Diminished in bases. negative: Wheezes, Rales, Rhonchi Abdomen: positive: Soft, Nml bowel sounds (increased), Obese. negative: Guarding, Mass Skin: positive: Wound (HH addressing chronic wounds r/t venous stasis/pressure) Extremities: positive: Pedal edema Neurologic/Psychiatric: positive: Oriented x3, Mood/affect nml, Flat affect Palliative Care - POLST Patient has POLST: Yes POLST Status: DNR, Comfort Measures Pain: Pain unchanged, Location (generalized over all; focused on bilateral knee joints right greater than left), Comment (using CBD intermittently) Tiredness/Fatigue: Moderate (4-6) Drowsiness/Sedation: Mild (1-3) Nausea: None Depression: Mild (1-3) Anxiety: Severe (7-10) Dyspnea: None Anorexia: None Sleep: Sleeps well Constipation: Yes, Opoid induced, Intermittent constipation Feelings of wellbeing/Perceived Quality of Life: Fair, Acceptable, No change Performance Status: Patient dependent on caregivers and for all ADLs. Patient is left- handed so is able to feed herself. She is on a pressure relief mattress, does not appear to reposition very frequently. She reports occasionally they are up with Nancy lift, though unable to recall last time have been up in chair. Syed sheets has been bedbound for about 18 months. She does present with contractures in her feet, limited mobility in her right upper extremity, and limited bed mobility as well. - Palliative Care Discussion: Patient's perception is that things are currently at a plateau, she does not identify any significant crisis or concerns. She does express feelings of grief and loss regarding her bedbound status, but does find distractions with watching TV, playing word games, and visiting with her caregivers. Reviewed if patient remembered conversation with [facility], last time regarding her anemia. She was unable to recall the conversation, but when presented with the information again, she said yes she remembered. We did discuss in the context of this repeating labs in the near future, she is quite adamant that she would not want to go to the hospital, and discussed if need for transfusion, for support at this point she would like to avoid leaving her home. She is quite fearful if she is rehospitalized she will end up in a snf. She currently enjoys her quality of life, and wants to stay at home. Patient is not exhibiting any acute signs or symptoms of breathlessness, she has some fatigue, she has some pallor but otherwise is at her baseline as far as sleeping a large portion of the day. She attributes this some to boredom. Will continue to explore goals of care, given the context both seem limited in their health literacy, but both are clear in their goals to keep her at home. Results - Lab Results Lab results reviewed: Yes Impression and Recommendations - Palliative Care Impression: This is a 74-year-old woman with multiple comorbidities, including bedbound status. She is on long-term opioids for chronic osteoarthritic/RA pain in joints, has underlying anxiety disorder, chronic venous stasis and wounds. She is supported by home health RN for anticoagulation management, wound care, and Estevez catheter management. Patient perceives her current pain management is adequate, and that she is at a plateau. Patient does have anemia of unknown origin/etiology, currently monitoring for increased symptomology for further weighing of benefits and burdens of intervention. Palliative care to continue to follow as patient is homebound status. Recommendations/Counseling Done: 1. Chronic pain, multiple joints. Patient reports current pain regimen adequate, currently on fentanyl 25 mcg patch, oxycodone 10 mg at bedtime, oxycodone 5 mg twice daily during the day to decrease lethargy, as well as gabapentin 300 mg twice daily. Report currently not using Voltaren, but using CBD occasionally for her acute flares. Prescriptions provided to , recommended dropping off as there has been difficulty obtaining opioids in community lately. 2. Medication adherence. There are challenges for managing in the home, does oversee medications, does have ready meds, is wondering about having other medications of Zyprexa, trazodone, and oxybutynin added to their bubble packs. Will follow up if possibility, if not would like to [facility] mail order. 3. Wounds lower extremity. These are somewhat chronic in nature, due to patient's venous stasis, home health managing at this point in time. Palliative care will continue to provide support as needed for adjusting treatment plan. 4. Anemia unspecified. Explored patient's goals of care regarding this, work-up and/or treatment would necessitate leaving the home. Patient is quite resistant, at this point time does not present with any acute symptomology, has some fatigue, pallor, no shortness of breath, vital signs are stable. Patient at this point in time declines any intervention, we will continue to explore, particularly in the context of her understanding. She is quite clear on her goals, she does not want to leave the home or be hospitalized at this time. 5. Anxiety. Patient presents with long-term history of anxiety, is currently on venlafaxine and Zyprexa. Patient able to identify persons of support, and ways to distract herself. She feels she has good support with her family, caregivers, and home health team. Palliative care [facility] new to patient, spent time setting up rapport, will continue to see patient in home setting. Time Spent: 60 minutes with greater than 50% of this done in counseling and follow-up regarding management of anemia, pain management, setting rapport, follow-up on anxiety.
== END 2019-02-27 14:11 | disposition home or self-care (01) ==
LOC: PC 14:10
PROVIDERS: ATTEND Nurse Practitioner Adult Health
DX: Z51.5 Encounter for palliative care (principal); G89.29 Other chronic pain; M06.9 Rheumatoid arthritis, unspecified; K59.03 Drug induced constipation; I87.8 Other specified disorders of veins; D64.9 Anemia, unspecified; F41.9 Anxiety disorder, unspecified; I42.6 Alcoholic cardiomyopathy; Z79.899 Other long term (current) drug therapy; Z79.891 Long term (current) use of opiate analgesic; Z74.01 Bed confinement status; Z66 Do not resuscitate
CPT/HCPCS: 99350

== ENCOUNTER 2019-04-10 14:15 | Outpatient (CLI) | payer MEDICARE ==
[2019-04-11 09:04] LABS: CLARITY,URINE CLOUDY (CLEAR); LEUKOCYTE ESTERASE, URINE TRACE (NEGATIVE)
[2019-04-11 09:05] LABS: KETONES,URINE (UA) NEGATIVE (NEGATIVE); NITRITE,URINE POSITIVE (NEGATIVE); OCCULT BLOOD,URINE LARGE (NEGATIVE); PH,URINE 6.5 PH (5.0-7.5); PROTEIN,URINE 100 mg/dL (NEGATIVE); UROBILINOGEN,URINE 1 (NORMAL) E.U./dL (NORMAL)
[2019-04-11 09:09] LABS: BILIRUBIN,URINE NEGATIVE (NEGATIVE); GLUCOSE, URINE (UA) NEGATIVE (NEGATIVE); ICTOTEST,URINE NEGATIVE
[2019-04-11 09:12] LABS: BACTERIA,URINE Rare /HPF (None Seen); RBC,URINE TNTC /HPF (0-5); SQUAMOUS EPITHELIAL CELL,UR NONE SEEN (<= Few)
== END 2019-04-10 23:59 | disposition home or self-care (01) ==
LOC: LAB.R 14:15
PROVIDERS: ATTEND Nurse Practitioner Adult Health
DX: N39.0 Urinary tract infection, site not specified (principal)
CPT/HCPCS: 81001; 81003

== ENCOUNTER 2019-04-13 20:55 | Outpatient (CLI) | payer MEDICARE | END 2019-04-15 20:56 | disposition E | LOC: EMS 20:55 | PROVIDERS: ATTEND Surgery ==